=== PATIENT | male | born 1935 | race Caucasian/White ===

== ENCOUNTER 2017-06-23 15:53 | Outpatient (CLI) | payer MEDICARE, OTHER ==
[~2017-06-23 15:53] MED LIST changes: -ALMACONE 360 M360 ML PO; -DULCOLAX S10 MG/SUPP RC; -GOOD NEIGH1200 MG/15 PO; -NORCO 325 MG-51 TAB PO; -PLAVIX 75MG TAB75 MG PO; -TYLENOL 325MG325 MG PO; -TYLENOL SU325 MG/SUP RC
[2017-06-23] MEDS ORDERED: DULCOLAX S10 MG/SUPP RC (16:53)
[2017-06-23] MEDS ORDERED: PLAVIX 75MG TAB75 MG PO (16:53)
[2017-06-23] MEDS ORDERED: TYLENOL SU325 MG/SUP RC (16:54)
[2017-06-23] MEDS ORDERED: NORCO 325 MG-51 TAB PO (16:55)
[2017-06-23] MEDS ORDERED: GOOD NEIGH1200 MG/15 PO (16:55)
[2017-06-23] MEDS ORDERED: ALMACONE 360 M360 ML PO (16:57)
[2017-06-23] MEDS ORDERED: TYLENOL 325MG325 MG PO (17:00)
[2017-06-23 20:36] VITALS: BP 124/51; PULSE 88; TEMP 97.8
[2017-06-23 21:00] VITALS: BP 119/54; PULSE 87; TEMP 98
[2017-06-23 21:15] VITALS: BP 107/42; PULSE 88; TEMP 97.8
[2017-06-23 21:45] VITALS: BP 98/46; PULSE 88; TEMP 98
[2017-06-23 22:45] VITALS: BP 126/43; PULSE 87; TEMP 98.1
[2017-06-23 23:30] VITALS: BP 133/54; PULSE 88; TEMP 98.1
[2017-06-23 23:52] LABS: HEMATOCRIT 19.8 % (42.0-52.0); HEMOGLOBIN 6.8 g/dl (13.5-18.0)
[2017-06-24 17:46] VITALS: BP 136/64; PULSE 85; TEMP 97.5
[2017-06-24 18:03] VITALS: BP 133/56; PULSE 77; TEMP 97.8
[2017-06-24 18:18] VITALS: BP 122/48; PULSE 76
[2017-06-24 18:48] VITALS: BP 130/50; PULSE 87
[2017-06-24 19:58] VITALS: BP 125/54; PULSE 83; TEMP 97.7
[2017-06-24 21:00] VITALS: BP 127/50; PULSE 86; TEMP 97.8
== END 2017-06-24 22:30 ==
LOC: EUO 15:53 → SURG 19:45 → EUO 06-24 00:50 → SURG 06-24 16:01 → EUO 06-24 22:30
PROVIDERS: Internal Medicine
DX: D46.9 Myelodysplastic syndrome, unspecified (principal)
CPT/HCPCS: OP; J1940; J7050; P9016

== ENCOUNTER → 2017-06-23 | Outpatient (REF) ==
[~2017-06-23] MED LIST: ALMACONE 360 M360 ML PO; AMBIEN 5MG TABLE5 MG PO; ASPIRIN 32325 MG/TAB PO; DULCOLAX S10 MG/SUPP RC; GOOD NEIGH1200 MG/15 PO; NORCO 325 MG-51 TAB PO; PLAVIX 75MG TAB75 MG PO; TENORMIN 5050 MG/TAB PO; TYLENOL 325MG325 MG PO; TYLENOL SU325 MG/SUP RC; ZESTRIL 20MG TA20 MG PO
[2017-06-23 10:59] LABS: MEAN CELL VOLUME 97 fl (80.0-100.0); MEAN CORPUSCULAR HGB CONC 34 g/dl (33.0-37.0); MEAN PLATELET VOLUME 9.7 fl (7.4-10.4); PLATELET COUNT 313 K/mm3 (130-400); RED BLOOD COUNT 2.02 M/mm3 (4.20-5.60); WHITE BLOOD COUNT 6.2 K/mm3 (4.8-10.8)
[2017-06-23 11:03] LABS: ADJUSTED CALCIUM 9.4 mg/dL (8.4-10.2); ALBUMIN 2.7 gm/dL (3.5-5.0); BILIRUBIN,TOTAL 0.5 mg/dL (0.0-1.0); CALCIUM 8.4 mg/dL (8.4-10.2); CREATININE, serum 3.55 mg/dL (0.66-1.25); POTASSIUM 4.4 mmol/L (3.4-5.0); TOTAL PROTEIN 5.4 gm/dL (6.4-8.2)
[2017-06-23 11:07] LABS: HEMATOCRIT 19.6 % (42.0-52.0); HEMOGLOBIN 6.6 g/dl (13.5-18.0); MEAN CORPUSCULAR HEMOGLOBIN 33 pg (27.0-31.0)
[2017-06-23 11:16] LABS: ADD PATHOLOGY DIFF REVIEW NO
[2017-06-23 11:37] LABS: BAND 35 % (0-10); EOSINOPHIL 9 % (0-4); LYMPHOCYTE 8 % (20.0-51.0); NEUTROPHILS 42 % (42.0-75.2); TOTAL CELLS COUNTED 100
[2017-06-23 11:39] LABS: ANISOCYTOSIS 1+; HYPOCHROMIA 1+; PLATELET ESTIMATE NORMAL (NORMAL)
== END ==
LOC: ZCOL.LAB 10:33
PROVIDERS: Internal Medicine
DX: Z01.89 Encounter for other specified special examinations (principal)

== ENCOUNTER → 2017-06-23 | Emergency (ER) | payer MEDICARE, OTHER ==
[2017-06-23 15:15] VITALS: BP 75/42; PULSE 80; TEMP 98.6
[2017-06-23 16:01] LABS: INR 1.2 (0.8-3.0); PROTHROMBIN TIME 14.1 SECONDS (9.7-12.8)
[2017-06-23 16:04] LABS: PARTIAL THROMBOPLASTIN TIME 30.2 SECONDS (26.0-37.0)
== END ==
LOC: COL.ER 15:06
PROVIDERS: Emergency Medicine
DX: D64.9 Anemia, unspecified (principal); Z79.82 Long term (current) use of aspirin

== ENCOUNTER → 2017-06-24 | Outpatient (REF) | payer MEDICARE ==
[~2017-06-24] MED LIST changes: +ALMACONE 360 M360 ML PO; +DULCOLAX S10 MG/SUPP RC; +GOOD NEIGH1200 MG/15 PO; +NORCO 325 MG-51 TAB PO; +PLAVIX 75MG TAB75 MG PO; +TYLENOL 325MG325 MG PO; +TYLENOL SU325 MG/SUP RC
[2017-06-24 09:08] LABS: BASO % 0.2 % (0.0-2.0); EOS # 0.6 (0.0-0.7); LYMPH # 0.7 (1.2-3.4); LYMPH % 12.2 % (20.0-51.0); MEAN CELL VOLUME 95 fl (80.0-100.0); MEAN CORPUSCULAR HGB CONC 34 g/dl (33.0-37.0); MEAN PLATELET VOLUME 9.2 fl (7.4-10.4); MONO # 0.6 (0.1-0.6); MONO % 9.8 % (1.7-9.3); PLATELET COUNT 256 K/mm3 (130-400); RED BLOOD COUNT 2.24 M/mm3 (4.20-5.60); WHITE BLOOD COUNT 5.9 K/mm3 (4.8-10.8)
[2017-06-24 09:14] LABS: HEMATOCRIT 21.2 % (42.0-52.0); HEMOGLOBIN 7.2 g/dl (13.5-18.0); MEAN CORPUSCULAR HEMOGLOBIN 32 pg (27.0-31.0)
[2017-06-24 10:18] LABS: CALCIUM 8.3 mg/dL (8.4-10.2); CREATININE, serum 3.04 mg/dL (0.66-1.25); POTASSIUM 4.1 mmol/L (3.4-5.0)
== END ==
LOC: ZCOL.LAB 08:46
PROVIDERS: Internal Medicine
DX: I21.4 Non-ST elevation (NSTEMI) myocardial infarction (principal); D64.9 Anemia, unspecified; N17.9 Acute kidney failure, unspecified; E87.1 Hypo-osmolality and hyponatremia

== ENCOUNTER 2017-06-29 12:49 | Outpatient (RCR) | payer MEDICARE ==
[~2017-06-29] VITALS: Ht 180.3 cm; Wt 99.5 kg
[2017-06-29 13:30] VITALS: BP 78/57; PULSE 76; TEMP 98.2
[2017-06-29] MEDS ORDERED: LASIX 20MG TABL20 MG PO (14:14)
[2017-06-29] MEDS ORDERED: FOLIC ACID 11 MG/TA1 PO (14:15)
[2017-06-29] MEDS ORDERED: LOPRESSOR 225 MG/TAB PO (14:17)
[2017-06-29 14:22] VITALS: BP 65/26; PULSE 77; TEMP 97.7
[2017-06-29 14:36] VITALS: BP 92/62; PULSE 76; TEMP 97.8
[2017-06-29 15:08] VITALS: BP 90/70; PULSE 73; TEMP 97.7
== END 2017-06-29 16:29 ==
LOC: EUO 12:49 → EDSTATUS 13:00 → EUO 13:00
DX: D46.9 Myelodysplastic syndrome, unspecified (principal)
CPT/HCPCS: J7050; P9016

== ENCOUNTER → 2017-07-03 | Outpatient (REF) ==
[~2017-07-03] MED LIST changes: +FOLIC ACID 11 MG/TA1 PO; +LASIX 20MG TABL20 MG PO; +LOPRESSOR 225 MG/TAB PO
== END ==
LOC: ZCOL.LAB 17:03
DX: D46.9 Myelodysplastic syndrome, unspecified (principal); D53.9 Nutritional anemia, unspecified

== ENCOUNTER → 2017-07-09 | Outpatient (REF) ==
[2017-07-09 10:33] LABS: BASO % 0.4 % (0.0-2.0); EOS # 0.9 (0.0-0.7); EOS % 12.9 % (0-4.0); GRAN # 4.1 (1.4-6.5); GRAN % 59.1 % (42.2-75.2); LYMPH # 1.1 (1.2-3.4); LYMPH % 16.1 % (20.0-51.0); MEAN CELL VOLUME 98 fl (80.0-100.0); MEAN CORPUSCULAR HGB CONC 32 g/dl (33.0-37.0); MEAN PLATELET VOLUME 9.9 fl (7.4-10.4); MONO # 0.7 (0.1-0.6); MONO % 10.6 % (1.7-9.3); PLATELET COUNT 411 K/mm3 (130-400); RED BLOOD COUNT 2.62 M/mm3 (4.20-5.60)
[2017-07-09 10:37] LABS: HEMATOCRIT 25.6 % (42.0-52.0); HEMOGLOBIN 8.3 g/dl (13.5-18.0); MEAN CORPUSCULAR HEMOGLOBIN 32 pg (27.0-31.0)
[2017-07-09 10:57] LABS: CREATININE, serum 1.45 mg/dL (0.66-1.25); POTASSIUM 4.4 mmol/L (3.4-5.0)
== END ==
LOC: ZCOL.LAB 10:28
PROVIDERS: Internal Medicine
DX: N17.9 Acute kidney failure, unspecified (principal); E87.1 Hypo-osmolality and hyponatremia

== ENCOUNTER → 2017-07-16 | Outpatient (REF) ==
[2017-07-16 10:43] LABS: CALCIUM 9.3 mg/dL (8.4-10.2); CREATININE, serum 1.41 mg/dL (0.66-1.25); POTASSIUM 4.3 mmol/L (3.4-5.0)
== END ==
LOC: ZCOL.LAB 09:58
PROVIDERS: Internal Medicine
DX: E87.1 Hypo-osmolality and hyponatremia (principal)

== ENCOUNTER 2017-08-08 08:32 | Outpatient (CLI) | payer MEDICARE, OTHER ==
[~2017-08-08] VITALS: Ht 177.8 cm; Wt 84.1 kg
[~2017-08-08 08:32] MED LIST changes: -ASPIRIN 32325 MG/TAB PO; +ASPIRIN 81M81 MG/TA2 PO
[2017-08-08] MEDS ORDERED: AMBIEN 5MG TABLE5 MG PO (08:55)
[2017-08-08] MEDS ORDERED: ULTRAM 50MG TAB50 MG PO (08:55)
[2017-08-08 08:56] VITALS: BP 121/53; PULSE 95; TEMP 98.1
[2017-08-08] MEDS ORDERED: CEPHALEXIN500 M1 PO (09:45)
== END 2017-08-08 10:14 | disposition home or self-care (01) ==
LOC: COL.CAR 08:32
DX: R55 Syncope and collapse (principal); I25.2 Old myocardial infarction; I10 Essential (primary) hypertension; Z86.73 Personal history of transient ischemic attack (TIA), and cerebral infarction without residual deficits; Z87.891 Personal history of nicotine dependence; Z88.2 Allergy status to sulfonamides; Z79.82 Long term (current) use of aspirin; Z79.02 Long term (current) use of antithrombotics/antiplatelets

== ENCOUNTER 2017-08-14 10:07 | Outpatient (RCR) | payer MEDICARE, OTHER ==
[~2017-08-14] VITALS: Ht 177.8 cm; Wt 84.0 kg
[2017-08-14] VITALS (9 sets, daily range): BP systolic 110–148; BP diastolic 45–60; PULSE 79–92; TEMP 97.8–98.4
[~2017-08-14 10:07] MED LIST changes: +CEPHALEXIN500 M1 PO; +ULTRAM 50MG TAB50 MG PO
== END 2017-08-14 16:20 | disposition home or self-care (01) ==
LOC: EUO 10:07
DX: D46.9 Myelodysplastic syndrome, unspecified (principal)
CPT/HCPCS: J7050; P9016

== ENCOUNTER 2017-08-17 07:25 | Outpatient (CLI) | payer MEDICARE, OTHER ==
[~2017-08-17] VITALS: Ht 177.8 cm; Wt 85.0 kg
[2017-08-17 07:55] VITALS: BP 114/56; PULSE 86; TEMP 97.9
[2017-08-17 09:15] VITALS: BP 135/61; PULSE 88; TEMP 97.4
[2017-08-20 14:40] LABS: ADRENOCORTICOTROPIC HORMONE 47 pg/mL (())
== END 2017-08-17 11:11 | disposition home or self-care (01) ==
LOC: EUO 07:25
PROVIDERS: Internal Medicine
DX: I95.1 Orthostatic hypotension (principal); E87.1 Hypo-osmolality and hyponatremia
CPT/HCPCS: J0834

== ENCOUNTER 2017-09-24 12:30 | Outpatient (RCR) | payer MEDICARE, OTHER | END 2017-09-27 07:58 | disposition home or self-care (01) | LOC: WSPT 12:30 | DX: S14.3XXD Injury of brachial plexus, subsequent encounter (principal) | CPT/HCPCS: G8978-GP; G8979-GP; G8980-GP; G8987-GO; G8988-GO ==

== ENCOUNTER 2017-10-07 07:45 | Inpatient (IN) | payer MEDICARE, OTHER ==
[~2017-10-07] VITALS: Ht 177.8 cm; Wt 86.8 kg
[2017-10-07 08:45] LABS: BASO % 0.3 % (0.0-2.0); EOS # 0.2 (0.0-0.7); EOS % 2.4 % (0-4.0); GRAN # 5.1 (1.4-6.5); GRAN % 76.4 % (42.2-75.2); LYMPH # 0.7 (1.2-3.4); LYMPH % 11.2 % (20.0-51.0); MEAN CELL VOLUME 116 fl (80.0-100.0); MEAN CORPUSCULAR HGB CONC 34 g/dl (33.0-37.0); MEAN PLATELET VOLUME 9.6 fl (7.4-10.4); MONO # 0.6 (0.1-0.6); MONO % 8.9 % (1.7-9.3); PLATELET COUNT 278 K/mm3 (130-400); RED BLOOD COUNT 1.73 M/mm3 (4.20-5.60); REDCELL DISTRIBUTION WIDTH-CV 26.1 % (11.5-14.5)
[2017-10-07 08:49] LABS: HEMATOCRIT 20.1 % (42.0-52.0); HEMOGLOBIN 6.8 g/dl (13.5-18.0); MEAN CORPUSCULAR HEMOGLOBIN 39 pg (27.0-31.0)
[2017-10-07 08:55] LABS: ALBUMIN 3.4 gm/dL (3.5-5.0); BILIRUBIN,TOTAL 0.5 mg/dL (0.0-1.0); CALCIUM 8.5 mg/dL (8.4-10.2); CREATININE, serum 0.88 mg/dL (0.66-1.25); TOTAL PROTEIN 5.8 gm/dL (6.4-8.2)
[2017-10-07 09:23] LABS: TROPONIN-I 0.051 ng/mL (0.000-0.034)
[2017-10-07 12:05] VITALS: BP 144/69; PULSE 101; TEMP 97.1
[2017-10-07 13:47] VITALS: BP 121/53; PULSE 92; TEMP 97.9
[2017-10-07 15:21] LABS: TROPONIN-I 0.046 ng/mL (0.000-0.034)
[2017-10-07 17:55] VITALS: BP 140/78; PULSE 94; TEMP 99
[2017-10-07 20:09] VITALS: BP 150/69; PULSE 95; TEMP 98.1
[2017-10-07 23:57] VITALS: BP 148/64; PULSE 96; TEMP 98.7
[2017-10-08 04:06] VITALS: BP 161/82; PULSE 92; TEMP 98
[2017-10-08 07:03] LABS: BASO % 0.4 % (0.0-2.0); EOS # 0.4 (0.0-0.7); EOS % 7.5 % (0-4.0); GRAN # 2.7 (1.4-6.5); LYMPH # 1.1 (1.2-3.4); LYMPH % 23.5 % (20.0-51.0); MEAN CELL VOLUME 114 fl (80.0-100.0); MEAN CORPUSCULAR HGB CONC 34 g/dl (33.0-37.0); MEAN PLATELET VOLUME 9.6 fl (7.4-10.4); MONO # 0.5 (0.1-0.6); MONO % 10.4 % (1.7-9.3); PLATELET COUNT 276 K/mm3 (130-400); RED BLOOD COUNT 1.79 M/mm3 (4.20-5.60); REDCELL DISTRIBUTION WIDTH-CV 25.2 % (11.5-14.5); RETIC # 0.06 M/mm3 (0.02-0.16); RETIC % 3.2 % (0.5-3.52)
[2017-10-08 07:04] LABS: CALCIUM 8.1 mg/dL (8.4-10.2); CREATININE, serum 0.88 mg/dL (0.66-1.25); HEMATOCRIT 20.4 % (42.0-52.0); MEAN CORPUSCULAR HEMOGLOBIN 39 pg (27.0-31.0)
[2017-10-08 10:55] VITALS: BP 114/81; PULSE 58; TEMP 99
[2017-10-08 13:36] VITALS: BP 114/81; PULSE 58
[2017-10-08 14:04] VITALS: BP 112/56; PULSE 88; TEMP 98.9
[2017-10-08 15:43] LABS: FOLATE (FOLIC ACID) 15.8 ng/mL (7.0-31.4)
[2017-10-08 17:56] VITALS: BP 113/49; PULSE 86; TEMP 98.1
[2017-10-08 21:54] VITALS: BP 119/60; PULSE 83; TEMP 98.2
[2017-10-09] VITALS (444 sets, daily range): BP systolic 91–133; BP diastolic 47–71; PULSE 75–127; TEMP 97.1–98.3; O2SAT 78–100
[2017-10-09 06:35] LABS: BASO % 0.7 % (0.0-2.0); EOS # 0.5 (0.0-0.7); EOS % 8.5 % (0-4.0); GRAN % 52.4 % (42.2-75.2); LYMPH # 1.5 (1.2-3.4); LYMPH % 26.3 % (20.0-51.0); MEAN CELL VOLUME 115 fl (80.0-100.0); MEAN CORPUSCULAR HGB CONC 34 g/dl (33.0-37.0); MEAN PLATELET VOLUME 9.7 fl (7.4-10.4); MONO # 0.6 (0.1-0.6); PLATELET COUNT 286 K/mm3 (130-400); RED BLOOD COUNT 2.03 M/mm3 (4.20-5.60); REDCELL DISTRIBUTION WIDTH-CV 25.2 % (11.5-14.5)
[2017-10-09 06:42] LABS: CALCIUM 8.2 mg/dL (8.4-10.2); CREATININE, serum 0.91 mg/dL (0.66-1.25); MAGNESIUM 1.6 mg/dL (1.6-2.3); PHOSPHOROUS 3.5 mg/dL (2.5-4.5); POTASSIUM 3.5 mmol/L (3.4-5.0)
[2017-10-09 06:43] LABS: HEMATOCRIT 23.3 % (42.0-52.0); MEAN CORPUSCULAR HEMOGLOBIN 39 pg (27.0-31.0)
[2017-10-09 07:05] LABS: TROPONIN-I 0.036 ng/mL (0.000-0.034)
[2017-10-10 03:36] VITALS: BP 130/72; PULSE 88; TEMP 97.4
[2017-10-10 08:00] VITALS: BP 108/68; PULSE 82; TEMP 97.5
[2017-10-10 12:00] VITALS: BP 102/56; PULSE 75; TEMP 98.2
[2017-10-10 16:00] VITALS: BP 138/65; PULSE 70; TEMP 97.5
[2017-10-10 20:00] VITALS: BP 102/87; PULSE 80; TEMP 99.3
[2017-10-11] VITALS: BP 134/73; PULSE 78; TEMP 97.2
[2017-10-11 04:00] VITALS: BP 138/72; PULSE 77; TEMP 97.2
[2017-10-11 08:00] VITALS: BP 118/59; PULSE 73; TEMP 98
[2017-10-11] MEDS ORDERED: CORDARONE200 MG/TAB PO ×2 (11:04→11:27)
[2017-10-11 11:44] VITALS: BP 130/59; PULSE 79; TEMP 98.1
== END 2017-10-11 12:34 | disposition home or self-care (01) | DRG 280 ==
LOC: COL.ER 07:45 → SURG 09:52 → ICU 10-09 06:31
PROVIDERS: Emergency Medicine; Internal Medicine; Nurse Practitioner Family
DX: I13.0 Hypertensive heart and chronic kidney disease with heart failure and stage 1 through stage 4 chronic kidney disease, or unspecified chronic kidney disease (principal); I50.33 Acute on chronic diastolic (congestive) heart failure; I21.A1 Myocardial infarction type 2; E87.1 Hypo-osmolality and hyponatremia; I48.92 Unspecified atrial flutter; I48.0 Paroxysmal atrial fibrillation; N18.9 Chronic kidney disease, unspecified; D53.9 Nutritional anemia, unspecified; F17.210 Nicotine dependence, cigarettes, uncomplicated; E87.6 Hypokalemia; I25.10 Atherosclerotic heart disease of native coronary artery without angina pectoris
CPT/HCPCS: 99223-AI; 99232-AI; 99233-AI; 99239; A9502; G8978-GP; G8979-GP; J0282; J1940; J1956; J2785

== ENCOUNTER 2017-10-17 10:04 | Outpatient (RCR) | payer MEDICARE, OTHER ==
[2017-10-17] VITALS (9 sets, daily range): BP systolic 107–140; BP diastolic 46–66; PULSE 82–89; TEMP 97.9–99
[~2017-10-17 10:04] MED LIST changes: +CORDARONE200 MG/TAB PO
== END 2017-10-17 16:08 | disposition home or self-care (01) ==
LOC: EUO 10:04
DX: D46.1 Refractory anemia with ring sideroblasts (principal)
CPT/HCPCS: J7050; P9016

== ENCOUNTER → 2017-11-30 | Outpatient (CLI) | payer MEDICARE, OTHER ==
[2017-11-30 16:34] LABS: CALCIUM 8.7 mg/dL (8.4-10.2); CREATININE, serum 1.13 mg/dL (0.66-1.25); POTASSIUM 4.4 mmol/L (3.4-5.0)
== END ==
LOC: ZCOL.LAB 16:18
PROVIDERS: Internal Medicine
DX: E87.1 Hypo-osmolality and hyponatremia (principal)

== ENCOUNTER 2017-12-13 12:30 | Outpatient (RCR) | payer MEDICARE, OTHER ==
[2017-12-13] VITALS (8 sets, daily range): BP systolic 114–153; BP diastolic 55–73; PULSE 76–89; TEMP 97.8–98.6
== END 2017-12-13 17:25 | disposition home or self-care (01) ==
LOC: EUO 12:30
DX: D46.1 Refractory anemia with ring sideroblasts (principal)
CPT/HCPCS: J7050; P9040

== ENCOUNTER 2017-12-21 23:03 | Emergency (ER) | payer MEDICARE, OTHER ==
[~2017-12-21] VITALS: Ht 177.8 cm; Wt 77.3 kg
[2017-12-21 23:07] VITALS: BP 160/79; PULSE 89; TEMP 98.2
[2017-12-21 23:49] LABS: BASO % 0.5 % (0.0-2.0); EOS # 0.6 (0.0-0.7); EOS % 6.5 % (0-4.0); GRAN # 6.3 (1.4-6.5); GRAN % 74.4 % (42.2-75.2); LYMPH # 1.1 (1.2-3.4); MEAN CELL VOLUME 107 fl (80.0-100.0); MEAN CORPUSCULAR HGB CONC 35 g/dl (33.0-37.0); MEAN PLATELET VOLUME 9.9 fl (7.4-10.4); MONO # 0.4 (0.1-0.6); MONO % 4.6 % (1.7-9.3); PLATELET COUNT 216 K/mm3 (130-400)
[2017-12-21 23:51] LABS: HEMATOCRIT 22.5 % (42.0-52.0); HEMOGLOBIN 7.8 g/dl (13.5-18.0); MEAN CORPUSCULAR HEMOGLOBIN 37 pg (27.0-31.0)
[2017-12-21 23:55] LABS: INR 1.3 (0.8-3.0); PROTHROMBIN TIME 15.3 SECONDS (9.7-12.8)
[2017-12-21 23:59] LABS: CALCIUM 8.7 mg/dL (8.4-10.2); CREATININE, serum 0.97 mg/dL (0.66-1.25); POTASSIUM 3.9 mmol/L (3.4-5.0)
[2017-12-22] MEDS ORDERED: CEPHALEXIN500 M1 PO (00:54)
== END 2017-12-22 01:28 | disposition home or self-care (01) ==
LOC: COL.ER 23:03
PROVIDERS: Emergency Medicine
DX: S41.111A Laceration without foreign body of right upper arm, initial encounter (principal); S50.02XA Contusion of left elbow, initial encounter; I48.91 Unspecified atrial fibrillation; F17.290 Nicotine dependence, other tobacco product, uncomplicated; I50.9 Heart failure, unspecified; Z79.02 Long term (current) use of antithrombotics/antiplatelets; Z79.82 Long term (current) use of aspirin; Z23 Encounter for immunization; W22.8XXA Striking against or struck by other objects, initial encounter; Y92.009 Unspecified place in unspecified non-institutional (private) residence as the place of occurrence of the external cause

== ENCOUNTER 2018-02-27 09:00 | Outpatient (RCR) | payer MEDICARE, OTHER ==
[2018-01-22] VITALS (14 sets, daily range): BP systolic 106–187; BP diastolic 34–92; PULSE 80–95; TEMP 97.6–98.2
[2018-02-27] VITALS (8 sets, daily range): BP systolic 110–123; BP diastolic 48–65; PULSE 68–93; TEMP 97.7–98.8
[~2018-02-27] VITALS: Ht 177.8 cm; Wt 77.2 kg
[2018-02-27] MEDS ORDERED: FLORINEF ACETA0.1 MG PO (11:26)
[2018-02-27] MEDS ORDERED: PLAVIX 75MG TAB75 MG PO (11:26)
[2018-02-27] MEDS ORDERED: CORDARONE200 MG/TAB PO (11:27)
[2018-02-27] MEDS ORDERED: FOLIC ACID 11 MG/TA1 PO (11:27)
== END 2018-02-27 15:30 | disposition still patient (30) ==
LOC: EUO 09:00
DX: D46.1 Refractory anemia with ring sideroblasts (principal)
CPT/HCPCS: J7050; P9016

== ENCOUNTER 2018-03-20 08:00 | Outpatient (RCR) | payer MEDICARE, OTHER ==
[2018-03-20] VITALS (11 sets, daily range): BP systolic 108–119; BP diastolic 42–52; PULSE 60–73; TEMP 97.9–98
[~2018-03-20] VITALS: Ht 177.8 cm; Wt 87.3 kg
[~2018-03-20 08:00] MED LIST changes: +FLORINEF ACETA0.1 MG PO
== END 2018-03-20 12:36 | disposition home or self-care (01) ==
LOC: EUO 08:00
DX: D46.1 Refractory anemia with ring sideroblasts (principal)
CPT/HCPCS: J7050; P9016

== ENCOUNTER 2018-04-03 09:00 | Outpatient (RCR) | payer MEDICARE, OTHER ==
[2018-04-03] VITALS (8 sets, daily range): BP systolic 80–142; BP diastolic 46–63; PULSE 71–82; TEMP 97–98.4
== END 2018-04-03 14:31 | disposition home or self-care (01) ==
LOC: EUO 09:00
DX: R53.83 Other fatigue (principal); D64.1 Secondary sideroblastic anemia due to disease
CPT/HCPCS: J7050; P9016

== ENCOUNTER 2018-04-17 08:31 | Outpatient (RCR) | payer MEDICARE, OTHER ==
[2018-04-17] VITALS (9 sets, daily range): BP systolic 105–123; BP diastolic 37–55; PULSE 69–86; TEMP 98–99
== END 2018-04-17 15:27 | disposition home or self-care (01) ==
LOC: EUO 08:31
DX: D46.1 Refractory anemia with ring sideroblasts (principal)
CPT/HCPCS: J7050; P9016

== ENCOUNTER 2018-05-09 12:37 | Outpatient (RCR) | payer MEDICARE, OTHER ==
[2018-05-09] VITALS (9 sets, daily range): BP systolic 102–127; BP diastolic 41–53; PULSE 65–82; TEMP 96.8–98.9
== END 2018-05-09 18:00 | disposition home or self-care (01) ==
LOC: EUO 12:37
DX: D46.9 Myelodysplastic syndrome, unspecified (principal)
CPT/HCPCS: J7050; P9040

== ENCOUNTER 2018-05-14 14:10 | Emergency (ER) | payer MEDICARE, OTHER ==
[~2018-05-14] VITALS: Ht 177.8 cm; Wt 77.3 kg
[2018-05-14 14:42] VITALS: TEMP 97.3
[2018-05-14 15:08] LABS: BASO % 1.1 % (0.0-2.0); EOS # 0.5 (0.0-0.7); EOS % 14.5 % (0-4.0); GRAN # 1.8 (1.4-6.5); GRAN % 47.9 % (42.2-75.2); HEMOGLOBIN 8.9 g/dl (13.5-18.0); LYMPH % 26.3 % (20.0-51.0); MEAN CELL VOLUME 99 fl (80.0-100.0); MEAN CORPUSCULAR HEMOGLOBIN 34 pg (27.0-31.0); MEAN CORPUSCULAR HGB CONC 35 g/dl (33.0-37.0); MEAN PLATELET VOLUME 9.3 fl (7.4-10.4); MONO # 0.3 (0.1-0.6); MONO % 8.8 % (1.7-9.3); PLATELET COUNT 127 K/mm3 (130-400); REDCELL DISTRIBUTION WIDTH-CV 26.8 % (11.5-14.5)
[2018-05-14 15:09] LABS: HEMATOCRIT 25.8 % (42.0-52.0)
[2018-05-14 15:16] LABS: ALBUMIN 3.8 gm/dL (3.5-5.0); BILIRUBIN,TOTAL 0.5 mg/dL (0.0-1.0); C-REACTIVE PROTEIN 0.8 mg/dL (0.0-0.9); CALCIUM 8.6 mg/dL (8.4-10.2); CREATININE, serum 1.14 mg/dL (0.66-1.25); POTASSIUM 4.1 mmol/L (3.4-5.0); TOTAL PROTEIN 6.1 gm/dL (6.4-8.2)
[2018-05-14 15:58] VITALS: BP 152/67; PULSE 78
== END 2018-05-14 16:00 | disposition home or self-care (01) ==
LOC: COL.ER 14:10
PROVIDERS: Family Medicine
DX: E86.0 Dehydration (principal); I10 Essential (primary) hypertension; I48.91 Unspecified atrial fibrillation; Z79.82 Long term (current) use of aspirin; Z79.02 Long term (current) use of antithrombotics/antiplatelets; Z86.2 Personal history of diseases of the blood and blood-forming organs and certain disorders involving the immune mechanism
CPT/HCPCS: J7030

== ENCOUNTER 2018-06-07 09:56 | Outpatient (RCR) | payer MEDICARE, OTHER ==
[~2018-06-07] VITALS: Ht 177.8 cm; Wt 72.3 kg
[2018-06-07] VITALS (9 sets, daily range): BP systolic 112–146; BP diastolic 53–70; PULSE 71–92; TEMP 98.1–98.6
[2018-06-07] MEDS ORDERED: TYLENOL 500MG500 MG PO (10:21)
== END 2018-06-07 15:41 | disposition home or self-care (01) ==
LOC: EUO 09:56
DX: D46.1 Refractory anemia with ring sideroblasts (principal)
CPT/HCPCS: J7050; P9016

== ENCOUNTER 2018-06-18 18:04 | Observation (INO) | payer MEDICARE, OTHER ==
[~2018-06-18] VITALS: Ht 177.8 cm; Wt 69.2 kg
[~2018-06-18 18:04] MED LIST changes: +TYLENOL 500MG500 MG PO
[2018-06-18 18:34] LABS: BASO # 0.1 (0.0-0.2); BASO % 1.3 % (0.0-2.0); EOS # 0.3 (0.0-0.7); EOS % 6.6 % (0-4.0); GRAN # 2.4 (1.4-6.5); LYMPH # 0.8 (1.2-3.4); LYMPH % 21.9 % (20.0-51.0); MEAN CELL VOLUME 105 fl (80.0-100.0); MEAN CORPUSCULAR HGB CONC 34 g/dl (33.0-37.0); MEAN PLATELET VOLUME 9.2 fl (7.4-10.4); MONO # 0.3 (0.1-0.6); MONO % 7.1 % (1.7-9.3); PLATELET COUNT 182 K/mm3 (130-400); RED BLOOD COUNT 2.44 M/mm3 (4.20-5.60); REDCELL DISTRIBUTION WIDTH-CV 25.8 % (11.5-14.5)
[2018-06-18 18:47] LABS: HEMATOCRIT 25.5 % (42.0-52.0); HEMOGLOBIN 8.6 g/dl (13.5-18.0); MEAN CORPUSCULAR HEMOGLOBIN 35 pg (27.0-31.0)
[2018-06-18 18:54] LABS: BILIRUBIN,TOTAL 0.7 mg/dL (0.0-1.0); CALCIUM 9.1 mg/dL (8.4-10.2); CREATININE, serum 1.04 mg/dL (0.66-1.25); POTASSIUM 4.1 mmol/L (3.4-5.0); TOTAL PROTEIN 6.4 gm/dL (6.4-8.2)
[2018-06-18 19:05] LABS: TROPONIN-I 0.016 ng/mL (0.000-0.034)
[2018-06-18 20:47] LABS: ARTERIAL BLD GAS TCO2 CT 18.8; ARTERIAL BLOOD GAS BASE EXCESS -5.6 (-2-2); ARTERIAL BLOOD GAS PCO2 28.1 mmHg (35-45); ARTERIAL BLOOD GAS pH 7.42 (7.35-7.45)
[2018-06-18 20:52] LABS: MAGNESIUM 1.7 mg/dL (1.6-2.3); PHOSPHOROUS 4.4 mg/dL (2.5-4.5)
[2018-06-18 21:24] LABS: TSH w REFLEX 3.38 uIU/mL (0.465-4.680)
[2018-06-18 21:30] LABS: MUCOUS Present /lpf; PH 6 (5-8); SQUAMOUS EPITHELIAL 0-2 /hpf; URINE APPEARANCE Hazy; URINE BACTERIA Many /hpf; URINE BILIRUBIN Negative (NEGATIVE); URINE BLOOD 2+ (NEGATIVE); URINE COLOR Yellow; URINE GLUCOSE Negative (NEGATIVE); URINE KETONE Negative (NEGATIVE); URINE LEUKOCYTE ESTERASE Trace (NEGATIVE); URINE NITRATE Positive (NEGATIVE); URINE PROTEIN(semi-quant) 1+ (NEGATIVE); URINE UROBILINOGEN Negative (NEGATIVE)
[2018-06-18 21:31] LABS: COLLECTION METHOD CATHETER
[2018-06-18 22:36] VITALS: BP 155/70; PULSE 81; TEMP 97.8
[2018-06-19 00:39] VITALS: BP 99/60; PULSE 81; TEMP 97.8
[2018-06-19 04:23] VITALS: BP 140/61; PULSE 83; TEMP 98.1
[2018-06-19 06:04] LABS: MEAN CELL VOLUME 107 fl (80.0-100.0); MEAN CORPUSCULAR HGB CONC 33 g/dl (33.0-37.0); MEAN PLATELET VOLUME 9.6 fl (7.4-10.4); PLATELET COUNT 174 K/mm3 (130-400); RED BLOOD COUNT 2.31 M/mm3 (4.20-5.60); REDCELL DISTRIBUTION WIDTH-CV 25.9 % (11.5-14.5)
[2018-06-19 06:06] LABS: HEMATOCRIT 24.6 % (42.0-52.0); HEMOGLOBIN 8.2 g/dl (13.5-18.0); MEAN CORPUSCULAR HEMOGLOBIN 35 pg (27.0-31.0)
[2018-06-19 06:22] LABS: ALBUMIN 3.6 gm/dL (3.5-5.0); BILIRUBIN,TOTAL 0.7 mg/dL (0.0-1.0); CREATININE, serum 0.8 mg/dL (0.66-1.25); POTASSIUM 4.2 mmol/L (3.4-5.0); TOTAL PROTEIN 5.9 gm/dL (6.4-8.2)
[2018-06-19 06:40] LABS: BAND 20 % (0-10); EOSINOPHIL 2 % (0-4); LYMPHOCYTE 12 % (20.0-51.0); METAMYELOCYTE 1 % (0-0); NEUTROPHILS 64 % (42.0-75.2); PLATELET ESTIMATE NORMAL (NORMAL)
[2018-06-19 06:41] LABS: ANISOCYTOSIS 3+
[2018-06-19 08:08] VITALS: BP 115/46; PULSE 81; TEMP 98.5
[2018-06-19 12:02] VITALS: BP 135/49; PULSE 79; TEMP 98
[2018-06-19 13:49] LABS: FOLATE (FOLIC ACID) 14.5 ng/mL (7.0-31.4)
[2018-06-19] MEDS ORDERED: CIPRO 250MG TA250 MG PO (14:58)
== END 2018-06-19 17:03 | disposition home or self-care (01) ==
LOC: COL.ER 18:04 → SURG 19:24
PROVIDERS: Emergency Medicine; Nurse Practitioner Family
DX: R53.1 Weakness (principal); R29.6 Repeated falls; R41.0 Disorientation, unspecified; N39.0 Urinary tract infection, site not specified; I48.0 Paroxysmal atrial fibrillation; E87.1 Hypo-osmolality and hyponatremia; D53.9 Nutritional anemia, unspecified; I95.1 Orthostatic hypotension; I73.9 Peripheral vascular disease, unspecified; I34.0 Nonrheumatic mitral (valve) insufficiency; N18.9 Chronic kidney disease, unspecified; K52.89 Other specified noninfective gastroenteritis and colitis; I25.2 Old myocardial infarction; F17.290 Nicotine dependence, other tobacco product, uncomplicated; Z79.02 Long term (current) use of antithrombotics/antiplatelets; Z79.82 Long term (current) use of aspirin; Z88.2 Allergy status to sulfonamides
CPT/HCPCS: G0378; G8978-GP; G8979-GP; G8987-GO; G8988-GO; J0696; J1720; J7030

== ENCOUNTER 2018-06-28 09:43 | Outpatient (RCR) | payer MEDICARE, OTHER ==
[~2018-06-28] VITALS: Ht 177.8 cm; Wt 77.4 kg
[2018-06-28] VITALS (9 sets, daily range): BP systolic 130–149; BP diastolic 52–72; PULSE 68–76; TEMP 98
[~2018-06-28 09:43] MED LIST changes: +CIPRO 250MG TA250 MG PO
== END 2018-06-28 15:25 | disposition home or self-care (01) ==
LOC: EUO 09:43
DX: D46.1 Refractory anemia with ring sideroblasts (principal)
CPT/HCPCS: J7050; P9016

== ENCOUNTER 2018-07-19 09:56 | Outpatient (RCR) | payer MEDICARE, OTHER ==
[~2018-07-19] VITALS: Ht 177.8 cm; Wt 74.0 kg
[2018-07-19] VITALS (9 sets, daily range): BP systolic 123–140; BP diastolic 51–60; PULSE 62–70; TEMP 97.8–98.6
[2018-07-19] MEDS ORDERED: CORDARONE200 MG/TAB PO (13:55)
--- NOTE | 2018-07-19 16:10 | NUR ---
Pt edson blood well. Pt discharged per w/c with son.
== END 2018-07-19 16:16 | disposition home or self-care (01) ==
LOC: EUO 09:56
DX: D46.1 Refractory anemia with ring sideroblasts (principal)
CPT/HCPCS: J7050; P9016

== ENCOUNTER → 2018-07-31 | Outpatient (CLI) | payer MEDICARE, OTHER ==
[~2018-07-31] MED LIST changes: +COMPAZINE 110 MG/TAB PO; +GLUCOSAMINE MSM1 TAB PO; +MULTI VITAMINS1 TAB PO; +NICODERM C21 MG/PATC TD
[2018-07-31 11:39] LABS: MEAN CELL VOLUME 106 fl (80.0-100.0); MEAN CORPUSCULAR HGB CONC 34 g/dl (33.0-37.0); MEAN PLATELET VOLUME 10.7 fl (7.4-10.4); PLATELET COUNT 174 K/mm3 (130-400); REDCELL DISTRIBUTION WIDTH-CV 23.8 % (11.5-14.5)
[2018-07-31 11:42] LABS: HEMATOCRIT 21.2 % (42.0-52.0); HEMOGLOBIN 7.1 g/dl (13.5-18.0); MEAN CORPUSCULAR HEMOGLOBIN 36 pg (27.0-31.0)
[2018-07-31 12:27] LABS: ALBUMIN 3.3 gm/dL (3.5-5.0); BILIRUBIN,TOTAL 0.5 mg/dL (0.0-1.0); CALCIUM 8.7 mg/dL (8.4-10.2); CREATININE, serum 0.9 mg/dL (0.66-1.25); TOTAL PROTEIN 5.3 gm/dL (6.4-8.2)
[2018-07-31 12:39] LABS: BAND 25 % (0-10); EOSINOPHIL 8 % (0-4); LYMPHOCYTE 18 % (20.0-51.0); NEUTROPHILS 47 % (42.0-75.2); PLATELET ESTIMATE NORMAL (NORMAL)
== END ==
LOC: ZLAB.STJ 10:04 → EDSTATUS 10:23
PROVIDERS: Internal Medicine
DX: D46.9 Myelodysplastic syndrome, unspecified (principal)

== ENCOUNTER 2018-08-01 08:54 | Outpatient (RCR) | payer MEDICARE, OTHER ==
[2018-08-01] VITALS (11 sets, daily range): BP systolic 106–151; BP diastolic 52–82; PULSE 67–74; TEMP 97.8–98.4
[~2018-08-01] VITALS: Ht 177.8 cm; Wt 74.5 kg
[~2018-08-01 08:54] MED LIST changes: -COMPAZINE 110 MG/TAB PO; -GLUCOSAMINE MSM1 TAB PO; -MULTI VITAMINS1 TAB PO; -NICODERM C21 MG/PATC TD
[2018-08-01] MEDS ORDERED: MULTI VITAMINS1 TAB PO (12:27)
[2018-08-01] MEDS ORDERED: NICODERM C21 MG/PATC TD (12:30)
[2018-08-01] MEDS ORDERED: COMPAZINE 110 MG/TAB PO (12:31)
[2018-08-01] MEDS ORDERED: GLUCOSAMINE MSM1 TAB PO (12:32)
== END 2018-08-01 15:41 | disposition home or self-care (01) ==
LOC: EUO 08:54 → EDSTATUS 09:00 → EUO 15:41
DX: D46.1 Refractory anemia with ring sideroblasts (principal)
CPT/HCPCS: J7050; P9016

== ENCOUNTER → 2018-08-06 | Outpatient (CLI) | payer MEDICARE, OTHER ==
[~2018-08-06] MED LIST changes: +COMPAZINE 110 MG/TAB PO; +GLUCOSAMINE MSM1 TAB PO; +MULTI VITAMINS1 TAB PO; +NICODERM C21 MG/PATC TD
[2018-08-06 11:39] LABS: COLLECTION METHOD CLEAN CATCH
[2018-08-06 12:37] LABS: MUCOUS Present /lpf; PH 6 (5-8); SQUAMOUS EPITHELIAL 0-2 /hpf; URINE APPEARANCE Hazy; URINE BACTERIA Many /hpf; URINE BILIRUBIN Negative (NEGATIVE); URINE BLOOD Negative (NEGATIVE); URINE COLOR Yellow; URINE GLUCOSE Negative (NEGATIVE); URINE KETONE Negative (NEGATIVE); URINE LEUKOCYTE ESTERASE 3+ (NEGATIVE); URINE NITRATE Positive (NEGATIVE); URINE PROTEIN(semi-quant) Negative (NEGATIVE); URINE UROBILINOGEN Negative (NEGATIVE)
== END ==
LOC: ZLAB.STJ 09:55
PROVIDERS: Internal Medicine
DX: R35.0 Frequency of micturition (principal)

== ENCOUNTER → 2018-08-07 | Outpatient (CLI) | payer MEDICARE, OTHER ==
[2018-08-07 10:57] LABS: MEAN CELL VOLUME 102 fl (80.0-100.0); MEAN CORPUSCULAR HGB CONC 33 g/dl (33.0-37.0); PLATELET COUNT 165 K/mm3 (130-400); RED BLOOD COUNT 2.54 M/mm3 (4.20-5.60); REDCELL DISTRIBUTION WIDTH-CV 22.5 % (11.5-14.5)
[2018-08-07 10:59] LABS: ALBUMIN 3.7 gm/dL (3.5-5.0); BILIRUBIN,TOTAL 0.7 mg/dL (0.0-1.0); CALCIUM 9.2 mg/dL (8.4-10.2); CREATININE, serum 1.12 mg/dL (0.66-1.25); POTASSIUM 4.4 mmol/L (3.4-5.0); TOTAL PROTEIN 5.9 gm/dL (6.4-8.2)
[2018-08-07 11:01] LABS: HEMATOCRIT 25.9 % (42.0-52.0); HEMOGLOBIN 8.5 g/dl (13.5-18.0); MEAN CORPUSCULAR HEMOGLOBIN 33 pg (27.0-31.0)
[2018-08-07 11:30] LABS: ANISOCYTOSIS 3+; BAND 21 % (0-10); EOSINOPHIL 3 % (0-4); HYPOCHROMIA 1+; LYMPHOCYTE 10 % (20.0-51.0); NEUTROPHILS 64 % (42.0-75.2); NUCLEATED RED BLOOD CELL 1 (0-6); PLATELET ESTIMATE NORMAL (NORMAL)
== END ==
LOC: ZLAB.STJ 10:22
PROVIDERS: Internal Medicine
DX: D46.9 Myelodysplastic syndrome, unspecified (principal)

== ENCOUNTER → 2018-08-14 | Outpatient (CLI) | payer MEDICARE, OTHER ==
[2018-08-14 11:41] LABS: MEAN CELL VOLUME 104 fl (80.0-100.0); MEAN CORPUSCULAR HGB CONC 33 g/dl (33.0-37.0); MEAN PLATELET VOLUME 9.7 fl (7.4-10.4); PLATELET COUNT 449 K/mm3 (130-400); REDCELL DISTRIBUTION WIDTH-CV 23.5 % (11.5-14.5)
[2018-08-14 11:45] LABS: HEMATOCRIT 23.8 % (42.0-52.0); HEMOGLOBIN 7.8 g/dl (13.5-18.0); MEAN CORPUSCULAR HEMOGLOBIN 34 pg (27.0-31.0)
[2018-08-14 12:24] LABS: ALBUMIN 3.4 gm/dL (3.5-5.0); BILIRUBIN,TOTAL 0.6 mg/dL (0.0-1.0); CREATININE, serum 0.95 mg/dL (0.66-1.25); POTASSIUM 4.4 mmol/L (3.4-5.0); TOTAL PROTEIN 5.5 gm/dL (6.4-8.2)
[2018-08-14 12:40] LABS: BAND 7 % (0-10); EOSINOPHIL 2 % (0-4); LYMPHOCYTE 9 % (20.0-51.0); MICROCYTOSIS 1+; NEUTROPHILS 79 % (42.0-75.2); PLATELET ESTIMATE INCREASED (NORMAL)
== END ==
LOC: ZLAB.STJ 10:12
PROVIDERS: Internal Medicine
DX: D46.9 Myelodysplastic syndrome, unspecified (principal)

== ENCOUNTER → 2018-08-26 | Outpatient (CLI) | payer MEDICARE, OTHER ==
[~2018-08-26] MED LIST changes: +VANTIN100 MG
[2018-08-26 14:58] LABS: COLLECTION METHOD CLEAN CATCH
[2018-08-26 15:41] LABS: MUCOUS Present /lpf; PH 7 (5-8); SQUAMOUS EPITHELIAL None Seen /hpf; URINE APPEARANCE Hazy; URINE BACTERIA None Seen /hpf; URINE BILIRUBIN Negative (NEGATIVE); URINE BLOOD Negative (NEGATIVE); URINE COLOR Yellow; URINE GLUCOSE Negative (NEGATIVE); URINE KETONE Negative (NEGATIVE); URINE LEUKOCYTE ESTERASE Trace (NEGATIVE); URINE NITRATE Positive (NEGATIVE); URINE PROTEIN(semi-quant) Negative (NEGATIVE); URINE RBC 0-2 /hpf; URINE UROBILINOGEN Negative (NEGATIVE)
== END ==
LOC: ZLAB.STJ 14:22
PROVIDERS: Internal Medicine
DX: R35.0 Frequency of micturition (principal)

== ENCOUNTER → 2018-08-28 | Outpatient (CLI) | payer MEDICARE, OTHER ==
[2018-08-28 14:04] LABS: MEAN CELL VOLUME 107 fl (80.0-100.0); MEAN CORPUSCULAR HGB CONC 33 g/dl (33.0-37.0); MEAN PLATELET VOLUME 10.9 fl (7.4-10.4); PLATELET COUNT 236 K/mm3 (130-400); REDCELL DISTRIBUTION WIDTH-CV 25.3 % (11.5-14.5)
[2018-08-28 14:09] LABS: HEMATOCRIT 18.1 % (42.0-52.0); MEAN CORPUSCULAR HEMOGLOBIN 35 pg (27.0-31.0)
[2018-08-28 14:10] LABS: HEMOGLOBIN 5.9 g/dl (13.5-18.0)
[2018-08-28 14:38] LABS: BAND 10 % (0-10); EOSINOPHIL 5 % (0-4); HYPOCHROMIA 2+; LYMPHOCYTE 14 % (20.0-51.0); NEUTROPHILS 70 % (42.0-75.2); PLATELET ESTIMATE NORMAL (NORMAL); POLYCHROMASIA 1+
[2018-08-28 14:39] LABS: ANISOCYTOSIS 3+; MICROCYTOSIS 1+
== END ==
LOC: ZLAB.STJ 10:18
PROVIDERS: Internal Medicine
DX: D46.9 Myelodysplastic syndrome, unspecified (principal)

== ENCOUNTER 2018-08-29 13:00 | Outpatient (RCR) | payer MEDICARE, OTHER ==
[2018-08-28 16:30] VITALS: BP 79/50; PULSE 83; TEMP 98
[2018-08-29] VITALS (13 sets, daily range): BP systolic 61–90; BP diastolic 42–57; PULSE 77–92; TEMP 98–99.2
[~2018-08-29] VITALS: Ht 177.8 cm; Wt 76.9 kg
== END 2018-08-29 17:17 | disposition home or self-care (01) ==
LOC: EUO 13:00
DX: D46.1 Refractory anemia with ring sideroblasts (principal)
CPT/HCPCS: J7050; P9040

== ENCOUNTER → 2018-09-04 | Outpatient (CLI) | payer MEDICARE, OTHER ==
[2018-09-04 16:09] LABS: BASO % 0.4 % (0.0-2.0); EOS # 0.2 (0.0-0.7); EOS % 2.5 % (0-4.0); GRAN # 7.7 (1.4-6.5); LYMPH # 0.8 (1.2-3.4); LYMPH % 8.7 % (20.0-51.0); MEAN CELL VOLUME 103 fl (80.0-100.0); MEAN CORPUSCULAR HGB CONC 34 g/dl (33.0-37.0); MEAN PLATELET VOLUME 11.7 fl (7.4-10.4); MONO # 0.1 (0.1-0.6); MONO % 1.2 % (1.7-9.3); PLATELET COUNT 179 K/mm3 (130-400); RED BLOOD COUNT 2.06 M/mm3 (4.20-5.60); REDCELL DISTRIBUTION WIDTH-CV 23.8 % (11.5-14.5)
[2018-09-04 16:14] LABS: HEMATOCRIT 21.2 % (42.0-52.0); HEMOGLOBIN 7.1 g/dl (13.5-18.0); MEAN CORPUSCULAR HEMOGLOBIN 34 pg (27.0-31.0)
== END ==
LOC: ZLAB.STJ 14:10
PROVIDERS: Internal Medicine
DX: D46.9 Myelodysplastic syndrome, unspecified (principal)

== ENCOUNTER 2018-09-06 13:07 | Outpatient (RCR) | payer MEDICARE, OTHER ==
[2018-09-06] VITALS (8 sets, daily range): BP systolic 73–102; BP diastolic 50–62; PULSE 76–88; TEMP 97.9–98.3
--- NOTE | 2018-09-06 18:15 | NUR ---
Pt tolerated infusion well with no adverse reactions. [facility] here to transport patient back to [facility]. IV was discontinued with catheter tip intact, no phlebitis or infiltration.
== END 2018-09-06 18:20 | disposition home or self-care (01) ==
LOC: EUO 13:07
DX: D46.1 Refractory anemia with ring sideroblasts (principal)
CPT/HCPCS: J7050; P9040

== ENCOUNTER → 2018-09-11 | Outpatient (CLI) | payer MEDICARE, OTHER ==
[2018-09-11 11:36] LABS: MEAN CELL VOLUME 101 fl (80.0-100.0); MEAN CORPUSCULAR HGB CONC 33 g/dl (33.0-37.0); MEAN PLATELET VOLUME 9.8 fl (7.4-10.4); PLATELET COUNT 584 K/mm3 (130-400); REDCELL DISTRIBUTION WIDTH-CV 23.1 % (11.5-14.5)
[2018-09-11 11:48] LABS: ALBUMIN 3.1 gm/dL (3.5-5.0); BILIRUBIN,TOTAL 0.5 mg/dL (0.0-1.0); CALCIUM 8.6 mg/dL (8.4-10.2); CREATININE, serum 0.9 mg/dL (0.66-1.25); POTASSIUM 4.7 mmol/L (3.4-5.0); TOTAL PROTEIN 5.4 gm/dL (6.4-8.2)
[2018-09-11 12:00] LABS: HEMATOCRIT 28.3 % (42.0-52.0); HEMOGLOBIN 9.2 g/dl (13.5-18.0); MEAN CORPUSCULAR HEMOGLOBIN 33 pg (27.0-31.0)
[2018-09-11 12:41] LABS: BAND 25 % (0-10); EOSINOPHIL 4 % (0-4); LYMPHOCYTE 6 % (20.0-51.0); NEUTROPHILS 63 % (42.0-75.2); TEAR DROP CELLS 1+
[2018-09-11 12:42] LABS: ANISOCYTOSIS 2+; BURR CELLS 1+; OVALOCYTES 1+; PLATELET ESTIMATE INCREASED (NORMAL); POIKILOCYTOSIS 1+
== END ==
LOC: ZCOL.LAB 10:53
PROVIDERS: Internal Medicine
DX: D46.9 Myelodysplastic syndrome, unspecified (principal)

== ENCOUNTER → 2018-09-17 | Outpatient (CLI) | payer MEDICARE, OTHER ==
[2018-09-17 10:59] LABS: COLLECTION METHOD CLEAN CATCH
[2018-09-17 11:11] LABS: MUCOUS Present /lpf; PH 7 (5-8); SQUAMOUS EPITHELIAL None Seen /hpf; URINE APPEARANCE Clear; URINE BACTERIA None Seen /hpf; URINE BILIRUBIN Negative (NEGATIVE); URINE BLOOD Negative (NEGATIVE); URINE COLOR Yellow; URINE GLUCOSE Negative (NEGATIVE); URINE KETONE Negative (NEGATIVE); URINE LEUKOCYTE ESTERASE Trace (NEGATIVE); URINE NITRATE Negative (NEGATIVE); URINE PROTEIN(semi-quant) Negative (NEGATIVE); URINE RBC 0-2 /hpf; URINE UROBILINOGEN Negative (NEGATIVE)
== END ==
LOC: ZLAB.STJ 09:45
PROVIDERS: Internal Medicine
DX: R35.0 Frequency of micturition (principal)

== ENCOUNTER → 2018-09-25 | Outpatient (CLI) | payer MEDICARE, OTHER ==
[2018-09-25 15:06] LABS: BASO # 0.1 (0.0-0.2); BASO % 0.5 % (0.0-2.0); EOS # 0.9 (0.0-0.7); EOS % 9.1 % (0-4.0); GRAN # 7.4 (1.4-6.5); GRAN % 72.7 % (42.2-75.2); LYMPH # 1.4 (1.2-3.4); LYMPH % 13.9 % (20.0-51.0); MEAN CELL VOLUME 101 fl (80.0-100.0); MEAN CORPUSCULAR HGB CONC 32 g/dl (33.0-37.0); MEAN PLATELET VOLUME 10.7 fl (7.4-10.4); MONO # 0.3 (0.1-0.6); PLATELET COUNT 291 K/mm3 (130-400); RED BLOOD COUNT 2.56 M/mm3 (4.20-5.60); REDCELL DISTRIBUTION WIDTH-CV 23.5 % (11.5-14.5)
[2018-09-25 15:16] LABS: HEMATOCRIT 25.9 % (42.0-52.0); HEMOGLOBIN 8.4 g/dl (13.5-18.0); MEAN CORPUSCULAR HEMOGLOBIN 33 pg (27.0-31.0)
== END ==
LOC: ZLAB.STJ 14:38
PROVIDERS: Internal Medicine
DX: D46.9 Myelodysplastic syndrome, unspecified (principal)

== ENCOUNTER → 2018-10-02 | Outpatient (CLI) | payer MEDICARE, OTHER ==
[2018-10-02 11:59] LABS: MEAN CELL VOLUME 102 fl (80.0-100.0); MEAN CORPUSCULAR HGB CONC 34 g/dl (33.0-37.0); PLATELET COUNT 148 K/mm3 (130-400); RED BLOOD COUNT 2.26 M/mm3 (4.20-5.60); REDCELL DISTRIBUTION WIDTH-CV 23.9 % (11.5-14.5)
[2018-10-02 12:15] LABS: HEMOGLOBIN 7.7 g/dl (13.5-18.0); MEAN CORPUSCULAR HEMOGLOBIN 34 pg (27.0-31.0)
[2018-10-02 12:30] LABS: BAND 45 % (0-10); EOSINOPHIL 5 % (0-4); LYMPHOCYTE 13 % (20.0-51.0); NEUTROPHILS 36 % (42.0-75.2)
[2018-10-02 12:31] LABS: ANISOCYTOSIS 3+; SCHISTOCYTES 1+
== END ==
LOC: ZLAB.STJ 09:55
PROVIDERS: Internal Medicine
DX: D46.9 Myelodysplastic syndrome, unspecified (principal)

== ENCOUNTER → 2018-10-09 | Outpatient (CLI) | payer MEDICARE, OTHER ==
[2018-10-09 10:10] LABS: MEAN CELL VOLUME 103 fl (80.0-100.0); MEAN CORPUSCULAR HGB CONC 34 g/dl (33.0-37.0); MEAN PLATELET VOLUME 10.1 fl (7.4-10.4); PLATELET COUNT 364 K/mm3 (130-400); RED BLOOD COUNT 2.17 M/mm3 (4.20-5.60); REDCELL DISTRIBUTION WIDTH-CV 26.2 % (11.5-14.5)
[2018-10-09 10:13] LABS: HEMATOCRIT 22.4 % (42.0-52.0); HEMOGLOBIN 7.5 g/dl (13.5-18.0); MEAN CORPUSCULAR HEMOGLOBIN 35 pg (27.0-31.0)
[2018-10-09 10:15] LABS: ALBUMIN 3.5 gm/dL (3.5-5.0); BILIRUBIN,TOTAL 0.6 mg/dL (0.0-1.0); CALCIUM 8.6 mg/dL (8.4-10.2); CREATININE, serum 0.97 mg/dL (0.66-1.25); POTASSIUM 4.7 mmol/L (3.4-5.0); TOTAL PROTEIN 5.5 gm/dL (6.4-8.2)
[2018-10-09 11:27] LABS: ANISOCYTOSIS 1+; BAND 34 % (0-10); EOSINOPHIL 4 % (0-4); HYPOCHROMIA 2+; LYMPHOCYTE 12 % (20.0-51.0); NEUTROPHILS 46 % (42.0-75.2)
[2018-10-09 11:28] LABS: SCHISTOCYTES 1+
[2018-10-09 11:29] LABS: HELMET CELLS 1+; PLATELET ESTIMATE NORMAL (NORMAL)
== END ==
LOC: ZLAB.STJ 09:42
PROVIDERS: Internal Medicine
DX: D46.9 Myelodysplastic syndrome, unspecified (principal)

== ENCOUNTER 2018-10-19 09:52 | Outpatient (RCR) | payer MEDICARE, OTHER ==
[2018-10-19] VITALS (10 sets, daily range): BP systolic 90–114; BP diastolic 41–68; PULSE 68–78; TEMP 97.1–98.2
[~2018-10-19] VITALS: Ht 177.8 cm; Wt 78.8 kg
--- NOTE | 2018-10-19 12:20 | NUR ---
Notified Dr. Blandon of consult
--- NOTE | 2018-10-19 18:24 | NUR ---
Patient tolerated blood transfusion well, vital signs stable, no complications noted, 2 units of PRBC transfused, I have notified his brother in-law who will come pick him up, IV discontinued from left arm
== END 2018-10-19 19:06 | disposition home or self-care (01) ==
LOC: EUO 09:52 → SURG 10:00 → EUO 19:06
DX: D46.1 Refractory anemia with ring sideroblasts (principal)
CPT/HCPCS: OP; J7050; P9040

== ENCOUNTER → 2018-10-24 | Outpatient (CLI) | payer MEDICARE, OTHER ==
[2018-10-24 09:18] LABS: MEAN CELL VOLUME 103 fl (80.0-100.0); MEAN CORPUSCULAR HGB CONC 33 g/dl (33.0-37.0); MEAN PLATELET VOLUME 11.1 fl (7.4-10.4); PLATELET COUNT 266 K/mm3 (130-400); RED BLOOD COUNT 2.61 M/mm3 (4.20-5.60); REDCELL DISTRIBUTION WIDTH-CV 24.5 % (11.5-14.5)
[2018-10-24 09:19] LABS: HEMATOCRIT 26.9 % (42.0-52.0); HEMOGLOBIN 8.8 g/dl (13.5-18.0); MEAN CORPUSCULAR HEMOGLOBIN 34 pg (27.0-31.0)
[2018-10-24 10:35] LABS: ANISOCYTOSIS 3+; EOSINOPHIL 25 % (0-4); LYMPHOCYTE 8 % (20.0-51.0); NEUTROPHILS 66 % (42.0-75.2); PLATELET ESTIMATE NORMAL (NORMAL)
== END ==
LOC: ZLAB.STJ 09:00
PROVIDERS: Internal Medicine
DX: D46.9 Myelodysplastic syndrome, unspecified (principal)

== ENCOUNTER → 2018-10-31 | Outpatient (CLI) | payer MEDICARE, OTHER ==
[2018-10-31 10:03] LABS: MEAN CELL VOLUME 105 fl (80.0-100.0); MEAN CORPUSCULAR HGB CONC 33 g/dl (33.0-37.0); MEAN PLATELET VOLUME 11.1 fl (7.4-10.4); PLATELET COUNT 168 K/mm3 (130-400); RED BLOOD COUNT 2.26 M/mm3 (4.20-5.60); REDCELL DISTRIBUTION WIDTH-CV 24.9 % (11.5-14.5)
[2018-10-31 10:04] LABS: HEMATOCRIT 23.7 % (42.0-52.0); HEMOGLOBIN 7.7 g/dl (13.5-18.0); MEAN CORPUSCULAR HEMOGLOBIN 34 pg (27.0-31.0)
[2018-10-31 10:22] LABS: ANISOCYTOSIS 3+; BAND 5 % (0-10); EOSINOPHIL 5 % (0-4); LYMPHOCYTE 21 % (20.0-51.0); NEUTROPHILS 68 % (42.0-75.2); NUCLEATED RED BLOOD CELL 2 (0-6); OVALOCYTES 1+; PLATELET ESTIMATE NORMAL (NORMAL); SCHISTOCYTES 2+; TARGET CELLS 1+
== END ==
LOC: ZLAB.STJ 09:12
PROVIDERS: Internal Medicine
DX: D46.9 Myelodysplastic syndrome, unspecified (principal)

== ENCOUNTER → 2018-11-06 | Outpatient (CLI) | payer MEDICARE, OTHER ==
[2018-11-06 10:05] LABS: MEAN CELL VOLUME 105 fl (80.0-100.0); MEAN CORPUSCULAR HGB CONC 33 g/dl (33.0-37.0); PLATELET COUNT 432 K/mm3 (130-400); RED BLOOD COUNT 2.09 M/mm3 (4.20-5.60); REDCELL DISTRIBUTION WIDTH-CV 25.9 % (11.5-14.5)
[2018-11-06 10:12] LABS: HEMOGLOBIN 7.3 g/dl (13.5-18.0); MEAN CORPUSCULAR HEMOGLOBIN 35 pg (27.0-31.0)
[2018-11-06 10:50] LABS: ANISOCYTOSIS 3+; BAND 14 % (0-10); EOSINOPHIL 8 % (0-4); LYMPHOCYTE 5 % (20.0-51.0); NEUTROPHILS 70 % (42.0-75.2); PLATELET ESTIMATE INCREASED (NORMAL)
[2018-11-06 10:51] LABS: OVALOCYTES 1+; POLYCHROMASIA 1+; SCHISTOCYTES 1+
[2018-11-06 10:52] LABS: TEAR DROP CELLS 1+
[2018-11-06 10:53] LABS: POIKILOCYTOSIS 1+
== END ==
LOC: ZLAB.STJ 09:45
PROVIDERS: Internal Medicine
DX: D46.9 Myelodysplastic syndrome, unspecified (principal)

== ENCOUNTER → 2018-11-20 | Outpatient (CLI) | payer MEDICARE, OTHER ==
[2018-11-20 10:08] LABS: MEAN CELL VOLUME 107 fl (80.0-100.0); MEAN CORPUSCULAR HGB CONC 33 g/dl (33.0-37.0); MEAN PLATELET VOLUME 10.3 fl (7.4-10.4); PLATELET COUNT 357 K/mm3 (130-400); RED BLOOD COUNT 1.92 M/mm3 (4.20-5.60)
[2018-11-20 10:14] LABS: HEMATOCRIT 20.6 % (42.0-52.0); HEMOGLOBIN 6.8 g/dl (13.5-18.0); MEAN CORPUSCULAR HEMOGLOBIN 35 pg (27.0-31.0)
[2018-11-20 10:40] LABS: BAND 1 % (0-10); EOSINOPHIL 11 % (0-4); LYMPHOCYTE 3 % (20.0-51.0); NEUTROPHILS 85 % (42.0-75.2); PLATELET ESTIMATE NORMAL (NORMAL)
== END ==
LOC: ZLAB.STJ 09:58
PROVIDERS: Internal Medicine
DX: D46.9 Myelodysplastic syndrome, unspecified (principal)

== ENCOUNTER 2018-11-21 12:59 | Outpatient (RCR) | payer MEDICARE, OTHER ==
[~2018-11-21] VITALS: Ht 177.8 cm; Wt 80.4 kg
[2018-11-21] VITALS (9 sets, daily range): BP systolic 92–124; BP diastolic 46–77; PULSE 74–81; TEMP 97.8–98.8
--- NOTE | 2018-11-21 16:52 | NUR ---
Report to Bon Khan RN who assumed care at this time.
--- NOTE | 2018-11-21 18:44 | NUR ---
JUHI HERE TO REINFORCED CONCRETE INSPECTOR PT AND TAKE BACK TO [facility]. PTS WALKER WAS LEFT DOWN IN PATIENT ENTRANCE TODAY. JUHI WILL REINFORCED CONCRETE INSPECTOR AT A LATER TIME.
== END 2018-11-21 18:45 ==
LOC: EUO 12:59
DX: D46.1 Refractory anemia with ring sideroblasts (principal)
CPT/HCPCS: J7050; P9040

== ENCOUNTER → 2018-11-27 | Outpatient (CLI) | payer MEDICARE, OTHER ==
[2018-11-27 13:25] LABS: MEAN CELL VOLUME 104 fl (80.0-100.0); MEAN CORPUSCULAR HGB CONC 33 g/dl (33.0-37.0); MEAN PLATELET VOLUME 11.7 fl (7.4-10.4); PLATELET COUNT 185 K/mm3 (130-400); RED BLOOD COUNT 2.46 M/mm3 (4.20-5.60)
[2018-11-27 13:26] LABS: HEMATOCRIT 25.5 % (42.0-52.0); HEMOGLOBIN 8.4 g/dl (13.5-18.0); MEAN CORPUSCULAR HEMOGLOBIN 34 pg (27.0-31.0)
[2018-11-27 13:44] LABS: ANISOCYTOSIS 3+; BAND 19 % (0-10); EOSINOPHIL 8 % (0-4); LYMPHOCYTE 8 % (20.0-51.0); METAMYELOCYTE 1 % (0-0); NEUTROPHILS 63 % (42.0-75.2); PLATELET ESTIMATE NORMAL (NORMAL); POLYCHROMASIA 1+; TARGET CELLS 1+
[2018-11-27 13:45] LABS: BURR CELLS 1+; SCHISTOCYTES 1+
== END ==
LOC: ZLAB.STJ 10:35
PROVIDERS: Internal Medicine
DX: D46.9 Myelodysplastic syndrome, unspecified (principal)

== ENCOUNTER → 2018-12-04 | Outpatient (CLI) | payer MEDICARE, OTHER ==
[2018-12-04 12:08] LABS: MEAN CELL VOLUME 108 fl (80.0-100.0); MEAN CORPUSCULAR HGB CONC 32 g/dl (33.0-37.0); MEAN PLATELET VOLUME 10.3 fl (7.4-10.4); PLATELET COUNT 428 K/mm3 (130-400); RED BLOOD COUNT 2.37 M/mm3 (4.20-5.60); REDCELL DISTRIBUTION WIDTH-CV 25.8 % (11.5-14.5)
[2018-12-04 12:36] LABS: HEMATOCRIT 25.5 % (42.0-52.0); HEMOGLOBIN 8.2 g/dl (13.5-18.0); MEAN CORPUSCULAR HEMOGLOBIN 35 pg (27.0-31.0)
[2018-12-04 13:12] LABS: BAND 32 % (0-10); EOSINOPHIL 9 % (0-4); HYPOCHROMIA 2+; LYMPHOCYTE 16 % (20.0-51.0); NEUTROPHILS 40 % (42.0-75.2); NUCLEATED RED BLOOD CELL 1 (0-6); PLATELET ESTIMATE INCREASED (NORMAL); POIKILOCYTOSIS 1+
== END ==
LOC: ZLAB.STJ 10:56
PROVIDERS: Internal Medicine
DX: D46.0 Refractory anemia without ring sideroblasts, so stated (principal)

== ENCOUNTER → 2018-12-11 | Outpatient (CLI) | payer MEDICARE, OTHER ==
[2018-12-11 13:18] LABS: MEAN CELL VOLUME 108 fl (80.0-100.0); MEAN CORPUSCULAR HGB CONC 33 g/dl (33.0-37.0); PLATELET COUNT 662 K/mm3 (130-400); RED BLOOD COUNT 2.26 M/mm3 (4.20-5.60); REDCELL DISTRIBUTION WIDTH-CV 26.5 % (11.5-14.5)
[2018-12-11 13:23] LABS: ALBUMIN 3.4 gm/dL (3.5-5.0); BILIRUBIN,TOTAL 0.7 mg/dL (0.0-1.0); CALCIUM 8.9 mg/dL (8.4-10.2); CREATININE, serum 1.02 (0.66-1.25); POTASSIUM 4.6 mmol/L (3.4-5.0); TOTAL PROTEIN 5.3 gm/dL (6.4-8.2)
[2018-12-11 13:42] LABS: HEMATOCRIT 24.4 % (42.0-52.0); MEAN CORPUSCULAR HEMOGLOBIN 35 pg (27.0-31.0)
[2018-12-11 13:56] LABS: BAND 17 % (0-10); EOSINOPHIL 4 % (0-4); LYMPHOCYTE 1 % (20.0-51.0); NEUTROPHILS 75 % (42.0-75.2); PLATELET ESTIMATE INCREASED (NORMAL)
== END ==
LOC: ZLAB.STJ 09:57
PROVIDERS: Internal Medicine
DX: D46.9 Myelodysplastic syndrome, unspecified (principal)

== ENCOUNTER → 2018-12-23 | Outpatient (CLI) | payer MEDICARE, OTHER ==
[2018-12-23 16:13] LABS: BASO % 0.1 % (0.0-2.0); EOS # 0.7 (0.0-0.7); EOS % 10.5 % (0-4.0); GRAN # 4.9 (1.4-6.5); GRAN % 70.7 % (42.2-75.2); LYMPH % 14.9 % (20.0-51.0); MEAN CELL VOLUME 106 fl (80.0-100.0); MEAN CORPUSCULAR HGB CONC 34 g/dl (33.0-37.0); MEAN PLATELET VOLUME 10.5 fl (7.4-10.4); MONO # 0.2 (0.1-0.6); MONO % 2.6 % (1.7-9.3); PLATELET COUNT 363 K/mm3 (130-400); RED BLOOD COUNT 1.85 M/mm3 (4.20-5.60)
[2018-12-23 17:05] LABS: HEMATOCRIT 19.6 % (42.0-52.0); HEMOGLOBIN 6.6 g/dl (13.5-18.0); MEAN CORPUSCULAR HEMOGLOBIN 36 pg (27.0-31.0)
== END ==
LOC: ZLAB.STJ 15:44
PROVIDERS: Internal Medicine
DX: D46.9 Myelodysplastic syndrome, unspecified (principal)

== ENCOUNTER 2018-12-25 13:00 | Outpatient (RCR) | payer MEDICARE, OTHER ==
[~2018-12-25] VITALS: Ht 177.8 cm; Wt 88.0 kg
[2018-12-25] VITALS (10 sets, daily range): BP systolic 104–141; BP diastolic 55–89; PULSE 70–87; TEMP 98.1–98.8
--- NOTE | 2018-12-25 17:32 | NUR ---
BLOOD INFUSED, [facility] CALLED FOR RIDE FOR PT, NO CHANGES FROM ASSESSMENT OR C/O, INT D'CD INTACT. PT ATE SUPPER AND USED URINAL AT BEDSIDE X2.
== END 2018-12-26 08:15 | disposition home or self-care (01) ==
LOC: EUO 13:00
DX: D46.1 Refractory anemia with ring sideroblasts (principal)
CPT/HCPCS: J7050; P9040

== ENCOUNTER → 2018-12-26 | Outpatient (CLI) | payer MEDICARE, OTHER ==
[2018-12-26 14:49] LABS: BASO % 0.3 % (0.0-2.0); EOS # 0.8 (0.0-0.7); EOS % 8.1 % (0-4.0); GRAN # 7.7 (1.4-6.5); GRAN % 77.4 % (42.2-75.2); LYMPH # 1.1 (1.2-3.4); LYMPH % 10.6 % (20.0-51.0); MEAN CORPUSCULAR HGB CONC 33 g/dl (33.0-37.0); MEAN PLATELET VOLUME 10.1 fl (7.4-10.4); MONO # 0.2 (0.1-0.6); MONO % 2.2 % (1.7-9.3); PLATELET COUNT 266 K/mm3 (130-400); RED BLOOD COUNT 2.63 M/mm3 (4.20-5.60); REDCELL DISTRIBUTION WIDTH-CV 25.3 % (11.5-14.5)
[2018-12-26 14:54] LABS: HEMATOCRIT 26.2 % (42.0-52.0); HEMOGLOBIN 8.7 g/dl (13.5-18.0); MEAN CELL VOLUME 100 fl (80.0-100.0); MEAN CORPUSCULAR HEMOGLOBIN 33 pg (27.0-31.0)
== END ==
LOC: ZLAB.STJ 14:27
PROVIDERS: Internal Medicine
DX: D46.9 Myelodysplastic syndrome, unspecified (principal)

== ENCOUNTER → 2019-01-02 | Outpatient (CLI) | payer MEDICARE, OTHER ==
[2019-01-02 16:10] LABS: MEAN CELL VOLUME 103 fl (80.0-100.0); MEAN CORPUSCULAR HGB CONC 33 g/dl (33.0-37.0); MEAN PLATELET VOLUME 12.1 fl (7.4-10.4); PLATELET COUNT 203 K/mm3 (130-400); RED BLOOD COUNT 2.38 M/mm3 (4.20-5.60); REDCELL DISTRIBUTION WIDTH-CV 23.9 % (11.5-14.5)
[2019-01-02 16:15] LABS: HEMATOCRIT 24.4 % (42.0-52.0); HEMOGLOBIN 8.1 g/dl (13.5-18.0); MEAN CORPUSCULAR HEMOGLOBIN 34 pg (27.0-31.0)
[2019-01-02 16:35] LABS: BAND 13 % (0-10); EOSINOPHIL 5 % (0-4); LYMPHOCYTE 13 % (20.0-51.0); NEUTROPHILS 69 % (42.0-75.2)
[2019-01-02 16:36] LABS: ANISOCYTOSIS 2+; HYPOCHROMIA 2+; PLATELET ESTIMATE NORMAL (NORMAL); POIKILOCYTOSIS 1+
== END ==
LOC: ZLAB.STJ 14:59
PROVIDERS: Internal Medicine
DX: D46.9 Myelodysplastic syndrome, unspecified (principal)

== ENCOUNTER → 2019-01-09 | Outpatient (CLI) | payer MEDICARE, OTHER ==
[2019-01-09 15:59] LABS: MEAN CELL VOLUME 104 fl (80.0-100.0); MEAN CORPUSCULAR HGB CONC 32 g/dl (33.0-37.0); PLATELET COUNT 494 K/mm3 (130-400)
[2019-01-09 16:13] LABS: HEMATOCRIT 22.9 % (42.0-52.0); HEMOGLOBIN 7.3 g/dl (13.5-18.0); MEAN CORPUSCULAR HEMOGLOBIN 33 pg (27.0-31.0)
[2019-01-09 18:06] LABS: BAND 25 % (0-10); EOSINOPHIL 2 % (0-4); LYMPHOCYTE 12 % (20.0-51.0); NEUTROPHILS 58 % (42.0-75.2); NUCLEATED RED BLOOD CELL 1 (0-6)
[2019-01-09 18:07] LABS: ANISOCYTOSIS 2+; HYPOCHROMIA 2+; POIKILOCYTOSIS 1+; POLYCHROMASIA 1+
[2019-01-09 18:09] LABS: PLATELET ESTIMATE NORMAL (NORMAL)
== END ==
LOC: ZLAB.STJ 13:59
PROVIDERS: Internal Medicine
DX: D46.9 Myelodysplastic syndrome, unspecified (principal)

== ENCOUNTER → 2019-01-15 | Outpatient (CLI) | payer MEDICARE, OTHER ==
[2019-01-15 14:00] LABS: MEAN CELL VOLUME 103 fl (80.0-100.0); MEAN CORPUSCULAR HGB CONC 33 g/dl (33.0-37.0); PLATELET COUNT 567 K/mm3 (130-400); RED BLOOD COUNT 2.11 M/mm3 (4.20-5.60); REDCELL DISTRIBUTION WIDTH-CV 25.6 % (11.5-14.5)
[2019-01-15 14:08] LABS: HEMATOCRIT 21.8 % (42.0-52.0); HEMOGLOBIN 7.2 g/dl (13.5-18.0); MEAN CORPUSCULAR HEMOGLOBIN 34 pg (27.0-31.0)
[2019-01-15 14:12] LABS: ALBUMIN 3.3 gm/dL (3.5-5.0); BILIRUBIN,TOTAL 0.5 mg/dL (0.0-1.0); CALCIUM 8.8 mg/dL (8.4-10.2); CREATININE, serum 1.34 (0.66-1.25); POTASSIUM 4.8 mmol/L (3.4-5.0); TOTAL PROTEIN 5.3 gm/dL (6.4-8.2)
[2019-01-15 14:34] LABS: BAND 15 % (0-10); EOSINOPHIL 1 % (0-4); LYMPHOCYTE 11 % (20.0-51.0); NEUTROPHILS 72 % (42.0-75.2); PLATELET ESTIMATE INCREASED (NORMAL)
[2019-01-15 14:35] LABS: ANISOCYTOSIS 1+
[2019-01-15 14:36] LABS: HYPOCHROMIA 2+; POIKILOCYTOSIS 1+; SCHISTOCYTES 1+
== END ==
LOC: ZCOL.LAB 13:46
PROVIDERS: Internal Medicine
DX: D46.9 Myelodysplastic syndrome, unspecified (principal)

== ENCOUNTER → 2019-01-28 | Outpatient (CLI) | payer MEDICARE, OTHER ==
[2019-01-28 14:38] LABS: MEAN CELL VOLUME 102 fl (80.0-100.0); MEAN CORPUSCULAR HGB CONC 33 g/dl (33.0-37.0); MEAN PLATELET VOLUME 11.1 fl (7.4-10.4); PLATELET COUNT 401 K/mm3 (130-400); RED BLOOD COUNT 1.92 M/mm3 (4.20-5.60)
[2019-01-28 14:42] LABS: HEMATOCRIT 19.6 % (42.0-52.0); HEMOGLOBIN 6.4 g/dl (13.5-18.0); MEAN CORPUSCULAR HEMOGLOBIN 33 pg (27.0-31.0)
[2019-01-28 15:25] LABS: ANISOCYTOSIS 2+; BAND 13 % (0-10); EOSINOPHIL 13 % (0-4); HYPOCHROMIA 2+; LYMPHOCYTE 19 % (20.0-51.0); NEUTROPHILS 53 % (42.0-75.2); TEAR DROP CELLS 1+
[2019-01-28 15:27] LABS: OVALOCYTES 1+
[2019-01-28 15:28] LABS: PLATELET ESTIMATE INCREASED (NORMAL)
== END ==
LOC: ZLAB.STJ 10:53
PROVIDERS: Internal Medicine
DX: D46.9 Myelodysplastic syndrome, unspecified (principal)

== ENCOUNTER 2019-01-30 12:30 | Outpatient (RCR) | payer MEDICARE, OTHER ==
[~2019-01-30] VITALS: Ht 177.8 cm; Wt 84.3 kg
[2019-01-30] VITALS (9 sets, daily range): BP systolic 112–135; BP diastolic 38–71; PULSE 62–79; TEMP 97.6–98.2
== END 2019-01-30 17:07 ==
LOC: EUO 12:30
DX: D46.1 Refractory anemia with ring sideroblasts (principal)
CPT/HCPCS: J7050; P9040

== ENCOUNTER 2019-02-21 13:00 | Outpatient (RCR) | payer MEDICARE, OTHER ==
[~2019-02-21] VITALS: Ht 177.8 cm; Wt 83.6 kg
[2019-02-21] VITALS (10 sets, daily range): BP systolic 80–101; BP diastolic 50–62; PULSE 77–85; TEMP 97.4–99.1
== END 2019-02-21 18:44 ==
LOC: EUO 13:00
DX: D46.1 Refractory anemia with ring sideroblasts (principal)
CPT/HCPCS: J7050; P9040

== ENCOUNTER 2019-03-27 13:00 | Outpatient (RCR) | payer MEDICARE, OTHER ==
[2019-03-27] VITALS (10 sets, daily range): BP systolic 98–148; BP diastolic 46–63; PULSE 70–81; TEMP 97.7–98.9
[~2019-03-27] VITALS: Ht 177.8 cm; Wt 81.4 kg
[2019-03-27] MEDS ORDERED: MULTI VITAMINS1 TAB PO (15:34)
[2019-03-27] MEDS ORDERED: FLORINEF ACETA0.1 MG PO (15:35)
--- NOTE | 2019-03-27 16:27 | NUR ---
I called office of Dr. Clint Samson at [facility] to schedule follow up appt for pt for groin check and BMP. Per clamp jig assembler at Dr. Samson's office, pt was instructed to go to lab prior to a previously scheduled bladder scan Saturday 03/31 0800... then to go to DR. Farrell office at 0930 for recheck of groin. These instructions were written on pt's discharge instructions and will be reviewed verbally with patient and his daughter prior to discharge
--- NOTE | 2019-03-27 17:19 | NUR ---
Pt tolerating transfusion well, pt was ambulatory to br at the start of his 2nd unit. RN accompanied pt to br for stand by. PT back in recliner now, warm blanket provided, no complaints at this time.
--- NOTE | 2019-03-27 17:46 | NUR ---
Report to Leonard Boo RN who assumed care at this time.
--- NOTE | 2019-03-27 18:36 | NUR ---
osmel Wong [facility] ([phone]) for a ride home for Mr. Petersen.
== END 2019-03-27 18:54 | disposition home or self-care (01) ==
LOC: EUO 13:00
DX: D46.1 Refractory anemia with ring sideroblasts (principal)
CPT/HCPCS: J7050; P9040

== ENCOUNTER 2019-04-10 13:00 | Outpatient (RCR) | payer MEDICARE, OTHER ==
[2019-04-10] VITALS (9 sets, daily range): BP systolic 104–140; BP diastolic 51–93; PULSE 77–93; TEMP 37.2
[~2019-04-10] VITALS: Ht 177.8 cm; Wt 83.0 kg
== END 2019-04-10 18:15 ==
LOC: EUO 13:00
DX: D46.1 Refractory anemia with ring sideroblasts (principal)
CPT/HCPCS: J7050; P9040

== ENCOUNTER 2019-05-29 13:00 | Outpatient (RCR) | payer MEDICARE, OTHER ==
[2019-05-08] VITALS (10 sets, daily range): BP systolic 104–151; BP diastolic 38–80; PULSE 74–80; TEMP 97.5–98.9
--- NOTE | 2019-05-08 18:06 | NUR ---
TRANSFUSION ENDED, PT UP ON BSC, HAD LOOSE STOOL AND VOIDED, CALLED FOR RIDE AT [facility]. IV D'CD INTACT
[~2019-05-29] VITALS: Ht 177.8 cm; Wt 75.0 kg
[2019-05-29] VITALS (11 sets, daily range): BP systolic 99–131; BP diastolic 46–59; PULSE 72–83; TEMP 98.5–98.7
== END 2019-05-30 11:44 | disposition home or self-care (01) ==
LOC: EUO 13:00
DX: D46.1 Refractory anemia with ring sideroblasts (principal)
CPT/HCPCS: J7050; P9040

== ENCOUNTER 2019-06-19 13:00 | Outpatient (RCR) | payer MEDICARE, OTHER ==
[2019-06-19] VITALS (9 sets, daily range): BP systolic 77–99; BP diastolic 51–73; PULSE 65–75; TEMP 97.5–98.2
[~2019-06-19] VITALS: Ht 177.8 cm; Wt 84.0 kg
--- NOTE | 2019-06-19 17:49 | NUR ---
Report to Ciara Tate RN who assumed care at this time.
== END 2019-06-19 18:31 | disposition home or self-care (01) ==
LOC: EUO 13:00
DX: D46.1 Refractory anemia with ring sideroblasts (principal)
CPT/HCPCS: J7050; P9040

== ENCOUNTER 2019-07-12 14:17 | Outpatient (RCR) | payer MEDICARE, OTHER ==
[2019-07-12] VITALS (13 sets, daily range): BP systolic 106–142; BP diastolic 39–73; PULSE 77–87; TEMP 98–99
--- NOTE | 2019-07-12 15:49 | NUR ---
PATIENT PRESENT TO HOSPITAL FOR OUTPATIENT BLOOD TRANSFUSION ORDERED BY DR. TORRES FOR HGB OF 6.6. A/O X 4, NO COMPLAINTS OF PAIN OR DISCOMFORT. AMBULATED TO BED FROM WITH STAND BY ASSIT. STTOOPED WITH STEADY GAIT. SEE FLOW SHEET FOR FVS OBTAINED. LUNG SOUNDS CTA THROUGHOUT WITH GOOD AIR EXCHANGE. NO C/O CHEST PAIN OR SOA. HEART REGULAR. 1+ PITTING EDEMA TO BLE. ALLERGIES REVIEWED. SEE EMAR FOR MEDICATIONS ADMINISTERED ORDERED PRIOR TO STARTING BLOOD TRANSFUSION. SIGNED CONSENT OBTAINED. PATIENT STATES HE GETS BLOOD TRANSFUSIONS ABOUT EVERY 2 MONTHS AND HAS NEVER HAD ANY COMPLICATIONS. HAS NO QUESTIONS OR CONCERNS REGARDING TRANSFUSION. IV ACCESS OBTAINED IN RIGHT MID FOREARM WITH 20G IV CATHETER X 1. ATTEMPT. BLOOD TRANSFUSION INITIATED AT 1545 PER HOSPITAL POLICY AFTER TO RN VERIFICATION. REMAINED IN ROOM WITH PATIENT FIRST 15 MINUETS OF TRANSFUSION.
--- NOTE | 2019-07-12 19:32 | NUR ---
Pt. sitting up in bed at this time. Pt. is A&OX3, assessment complete. Blood transfusion almost complete. Pt. to discharge after transfusion complete.
--- NOTE | 2019-07-12 19:41 | NUR ---
Blood transfusion complete. INT discontinued from rt. forearm. Pt. tolerated well. Pt. waiting for ride. Will call when ride arrives.
--- NOTE | 2019-07-12 20:05 | NUR ---
Pt.'s ride has arrived. Pt. escorted out with ASSISTANT OPERATIONS MANAGER.
== END 2019-07-12 20:00 ==
LOC: EUO 14:17 → MEDICAL 14:26 → EUO 20:00
DX: D46.1 Refractory anemia with ring sideroblasts (principal)
CPT/HCPCS: OP; P9040

== ENCOUNTER 2019-07-25 14:00 | Outpatient (RCR) | payer MEDICARE, OTHER ==
[2019-07-25 13:27] VITALS: BP 83/54; PULSE 78; TEMP 98.7
[2019-07-25 13:42] VITALS: BP 82/60; PULSE 79; TEMP 98.6
[2019-07-25 13:57] VITALS: BP 83/55; PULSE 77; TEMP 98.6
[2019-07-25 14:12] VITALS: BP 76/52; PULSE 78; TEMP 98.6
[2019-07-25 14:53] VITALS: BP 93/64; PULSE 76; TEMP 98.3
== END 2019-07-25 15:00 ==
LOC: EUO 14:00
DX: D46.1 Refractory anemia with ring sideroblasts (principal)
CPT/HCPCS: J7050; P9040

== ENCOUNTER 2019-08-02 12:49 | Outpatient (RCR) | payer MEDICARE, OTHER ==
[~2019-08-02] VITALS: Ht 177.8 cm; Wt 86.5 kg
[2019-08-02] VITALS (13 sets, daily range): BP systolic 104–139; BP diastolic 35–51; PULSE 71–90; TEMP 97.9–98.8
--- NOTE | 2019-08-02 15:20 | NUR ---
Patient has first unit of blood transfusing. Protocol followed. Explained to patient what reactions he needs to notify me of. Consent is signed on chart. Patient is tolerating blood transfusion at this time with no complaints of pain. IV site intact, no irritation or soreness. No other changes at this time. Call light within reach. Patient was given tylenol and benadryl as ordered.
--- NOTE | 2019-08-02 15:30 | NUR ---
Patient continues to do well with transfusion. Denies shortness of breath or pain. IV sites is still intact. NO other signs or symptoms of reaction noted at this time. Vital signs stable. No other changes at this time. Call light within reach. Rate increased to 100ml/hr.
--- NOTE | 2019-08-02 21:00 | NUR ---
2nd UNIT PRBCs COMPLETED/TRANSFUSED. NO ADVERSE REACTIONS NOTED. PT'S RIDE HOME NOTIFIED, IS HERE AND IS TAKING HIM HOME. I.V. D.C.'d, CATHETER INTACT. PT ESCORTED OUT VIA WHEELCHAIR.
== END 2019-08-02 21:00 | disposition home or self-care (01) ==
LOC: SURG 12:49 → EUO 12:49
DX: D46.1 Refractory anemia with ring sideroblasts (principal)
CPT/HCPCS: OP; P9040

== ENCOUNTER 2019-09-05 14:14 | Outpatient (RCR) | payer MEDICARE, OTHER ==
[2019-09-05] VITALS (10 sets, daily range): BP systolic 79–149; BP diastolic 47–79; PULSE 70–84; TEMP 98.3–99.5
== END 2019-09-05 21:00 | disposition home or self-care (01) ==
LOC: EUO 14:14
DX: D46.1 Refractory anemia with ring sideroblasts (principal)
CPT/HCPCS: J7050; P9040

== ENCOUNTER 2019-09-22 16:28 | Outpatient (RCR) | payer MEDICARE, OTHER ==
[2019-09-22] VITALS (10 sets, daily range): BP systolic 78–975; BP diastolic 37–66; PULSE 68–74; TEMP 97.3–98.5
--- NOTE | 2019-09-22 16:27 | NUR ---
Pt arrived today for blood transfusion.Pt was scheduled for sunday but did not show.
== END 2019-09-23 08:44 | disposition home or self-care (01) ==
LOC: EUO 16:28
DX: D46.1 Refractory anemia with ring sideroblasts (principal)
CPT/HCPCS: J7050; P9040

== ENCOUNTER 2019-10-09 15:40 | Outpatient (RCR) | payer MEDICARE, OTHER ==
[2019-10-10] VITALS (9 sets, daily range): BP systolic 88–111; BP diastolic 55–68; PULSE 73–84; TEMP 98.1–98.9
== END 2019-10-10 19:00 | disposition home or self-care (01) ==
LOC: EUO 15:40
DX: D46.9 Myelodysplastic syndrome, unspecified (principal); I10 Essential (primary) hypertension; I95.9 Hypotension, unspecified; I73.9 Peripheral vascular disease, unspecified; R53.83 Other fatigue; Z87.891 Personal history of nicotine dependence
CPT/HCPCS: J7050; P9040

== ENCOUNTER 2019-10-24 13:30 | Outpatient (RCR) | payer MEDICARE, OTHER ==
[2019-10-24] VITALS (10 sets, daily range): BP systolic 71–100; BP diastolic 35–67; PULSE 68–88; TEMP 97.7–99.1
[~2019-10-24] VITALS: Ht 177.8 cm; Wt 85.7 kg
--- NOTE | 2019-10-24 17:10 | NUR ---
PT COMPLETED TRANSFUSION AND TOLERATED WELL. BLOOD PRESSURE INCREASED POST INFUSION AND PT STATES HE "FEELS BETTER". NO ADVERSE REACTION. TRANSPORTATION CALLED FOR PT TO RETURN TO [facility]. DARIEL BERKOWITZ DISCHARGED PT VIA W/C TO THE CARE OF [facility] TRANSPORTATION.
== END 2019-10-24 17:18 ==
LOC: EUO 13:30
DX: D46.9 Myelodysplastic syndrome, unspecified (principal); E87.1 Hypo-osmolality and hyponatremia; R19.7 Diarrhea, unspecified; I10 Essential (primary) hypertension; I73.9 Peripheral vascular disease, unspecified; I95.9 Hypotension, unspecified; Z79.899 Other long term (current) drug therapy
CPT/HCPCS: J7050; P9040

== ENCOUNTER 2019-11-10 13:00 | Outpatient (RCR) | payer MEDICARE, OTHER ==
[2019-11-10] VITALS (8 sets, daily range): BP systolic 103–143; BP diastolic 50–68; PULSE 42–78; TEMP 97.7–98.6
[~2019-11-10] VITALS: Ht 177.8 cm; Wt 79.5 kg
== END 2019-11-10 18:37 | disposition home or self-care (01) ==
LOC: EUO 13:00
DX: D46.1 Refractory anemia with ring sideroblasts (principal)
CPT/HCPCS: J7050; P9040

== ENCOUNTER 2019-11-28 13:00 | Outpatient (RCR) | payer MEDICARE, OTHER ==
[2019-11-28] VITALS (8 sets, daily range): BP systolic 96–125; BP diastolic 60–72; PULSE 71–76; TEMP 98.4–98.6
== END 2019-11-28 16:23 ==
LOC: EUO 13:00
DX: D46.1 Refractory anemia with ring sideroblasts (principal)
CPT/HCPCS: J7050; P9040

== ENCOUNTER 2019-12-05 13:30 | Outpatient (RCR) | payer MEDICARE, OTHER ==
[2019-12-05] VITALS (8 sets, daily range): BP systolic 52–98; BP diastolic 37–95; PULSE 48–70; TEMP 98–98.4
[~2019-12-05] VITALS: Ht 177.8 cm; Wt 82.3 kg
== END 2019-12-05 18:30 | disposition home or self-care (01) ==
LOC: EUO 13:30
DX: D46.1 Refractory anemia with ring sideroblasts (principal)
CPT/HCPCS: J7050; P9040

== ENCOUNTER → 2019-12-05 | Outpatient (CLI) | payer MEDICARE, OTHER ==
[2019-12-05 21:22] LABS: CLOSTRIDIUM DIFF A/B NEG; CLOSTRIDIUM DIFF A/B INTERP No C.diff present
== END ==
LOC: ZCOL.LAB 18:17
PROVIDERS: Internal Medicine
DX: R19.7 Diarrhea, unspecified (principal)

== ENCOUNTER 2019-12-19 13:30 | Outpatient (RCR) | payer MEDICARE, OTHER ==
[~2019-12-19] VITALS: Ht 177.8 cm; Wt 83.4 kg
[2019-12-19] VITALS (11 sets, daily range): BP systolic 92–123; BP diastolic 43–84; PULSE 76–83; TEMP 96.7–97.4
== END 2019-12-19 19:18 ==
LOC: EUO 13:30
DX: D46.1 Refractory anemia with ring sideroblasts (principal)
CPT/HCPCS: J7050; P9040

== ENCOUNTER 2020-01-16 14:00 | Outpatient (RCR) | payer MEDICARE, OTHER ==
[~2020-01-16] VITALS: Ht 177.8 cm; Wt 77.7 kg
[2020-01-16] VITALS (9 sets, daily range): BP systolic 64–107; BP diastolic 42–98; PULSE 71–81; TEMP 97.7–99.1
[2020-01-16] MEDS ORDERED: TYLENOL 325MG325 MG PO (15:03)
[2020-01-16] MEDS ORDERED: PREPH RC (15:04)
[2020-01-16] MEDS ORDERED: SYNTHROID0.125 MG/T PO (15:05)
[2020-01-16] MEDS ORDERED: COLESTID 1GM1 G PO (15:05)
--- NOTE | 2020-01-16 15:23 | NUR ---
Patient's bp dropped to 59/43 after initial start of transfusion.This nurse rechecked bp and observed 72/46,pulse of 79 at 1511.Call made to Dr Claros,message left.Blood stopped until callback received. Attempted to call again,no answer.Call made to Dr Cali,order received to continue infusion after report given.After call with Dr Cali I received callback from Dr Claros and same order received.Infusion restarted at 1517.Per Dr Claros pt was systolic in the 70s.Patient is awake, alert, and orientated x 3.Patient has ate cheesburge and fries upon arrival.Pt denies symptoms of reactions.See flowsheet for full vitals.Will continue to monitor closely.
--- NOTE | 2020-01-16 17:16 | NUR ---
Report to Duane Alatorre.
--- NOTE | 2020-01-16 19:15 | NUR ---
PT READY FOR DEPARTURE. IV IS DC'D, CATH INTACT, DRESSING APPLIED. PT WAITING IN WHEELCHAIR, HALF-WAY HAS BEEN CALLED FOR A RIDE.
== END 2020-01-16 19:44 | disposition home or self-care (01) ==
LOC: EUO 14:00
DX: D46.9 Myelodysplastic syndrome, unspecified (principal)
CPT/HCPCS: J7050; P9040

== ENCOUNTER → 2020-01-23 | Outpatient (CLI) | payer MEDICARE, OTHER ==
[~2020-01-23] MED LIST changes: +COLESTID 1GM1 G PO; +PREPH RC; +SYNTHROID0.125 MG/T PO
[2020-01-23 14:14] LABS: BASO % 0.7 % (0.0-2.0); EOS # 0.6 (0.0-0.7); EOS % 22.1 % (0-4.0); GRAN # 1.4 (1.4-6.5); GRAN % 49.1 % (42.2-75.2); LYMPH # 0.5 (1.2-3.4); LYMPH % 17.5 % (20.0-51.0); MEAN CELL VOLUME 92 fl (80.0-100.0); MEAN CORPUSCULAR HGB CONC 33 g/dl (33.0-37.0); MEAN PLATELET VOLUME 10.6 fl (7.4-10.4); MONO # 0.3 (0.1-0.6); MONO % 10.2 % (1.7-9.3); PLATELET COUNT 157 K/mm3 (130-400); RED BLOOD COUNT 2.15 M/mm3 (4.20-5.60); REDCELL DISTRIBUTION WIDTH-CV 17.4 % (11.5-14.5)
[2020-01-23 14:19] LABS: HEMATOCRIT 19.8 % (42.0-52.0); HEMOGLOBIN 6.5 g/dl (13.5-18.0); MEAN CORPUSCULAR HEMOGLOBIN 30 pg (27.0-31.0)
[2020-01-24 10:00] LABS: BASO % 0.6 % (0.0-2.0); EOS # 0.7 (0.0-0.7); EOS % 21.3 % (0-4.0); GRAN # 1.7 (1.4-6.5); GRAN % 50.8 % (42.2-75.2); LYMPH # 0.6 (1.2-3.4); LYMPH % 19.2 % (20.0-51.0); MEAN CELL VOLUME 92 fl (80.0-100.0); MEAN CORPUSCULAR HGB CONC 32 g/dl (33.0-37.0); MEAN PLATELET VOLUME 10.1 fl (7.4-10.4); MONO # 0.3 (0.1-0.6); MONO % 7.8 % (1.7-9.3); PLATELET COUNT 182 K/mm3 (130-400); RED BLOOD COUNT 2.31 M/mm3 (4.20-5.60); REDCELL DISTRIBUTION WIDTH-CV 17.4 % (11.5-14.5)
[2020-01-24 12:51] LABS: HEMATOCRIT 21.3 % (42.0-52.0); HEMOGLOBIN 6.8 g/dl (13.5-18.0); MEAN CORPUSCULAR HEMOGLOBIN 29 pg (27.0-31.0)
== END ==
LOC: ZLAB.STJ 13:39
PROVIDERS: Internal Medicine
DX: I48.91 Unspecified atrial fibrillation (principal)

== ENCOUNTER 2020-01-25 10:21 | Outpatient (RCR) | payer MEDICARE, OTHER ==
[~2020-01-25] VITALS: Ht 177.8 cm; Wt 80.0 kg
[2020-01-25] VITALS (10 sets, daily range): BP systolic 60–102; BP diastolic 24–64; PULSE 64–75; TEMP 97.5–97.8
--- NOTE | 2020-01-25 09:30 | NUR ---
Patient to room 314 by wheelchair from ED admissions. Patient A&Ox3. Denies pain and discomfort. VSS, BP hypotensive, doctor notified and aware. Assessment complete. Lungs CTA, HRR. Bowels audible. Patient is pale. Nurse oriented patient to room, call light and bed. Patient instructed to call nursing staff for assistance with ambulation. No further needs expressed from patient. Call light within reach. Bed alarm on. Patient is here for a blood transfusion.
--- NOTE | 2020-01-25 12:30 | NUR ---
ALPHONSO received a call from nurse about transport of patient back to [facility]. ALPHONSO contacted Chevy at [facility], who indicated that transport could be arranged, but it is usually difficult after 2 oclock. V was informed of approximate time of when transfusion would be complete and SW requested contact number so patient could be picked up and transported home. Parker provided the following number to be called for patient transport coordination [phone]. ALPHONSO called patients nurse back and gave her the information. Transport time will be around about 5 or 6.
--- NOTE | 2020-01-25 13:01 | NUR ---
Transfusion started, patient tolerating well. Low BP 62/39, patient asymptomatic, verified with Nurse DARIEL Rodriguez. Patient eatting lunch at the time. Nurse at the bedside. No further needs expressed from the patient. Call light within reach. Will continue to monitor
--- NOTE | 2020-01-25 13:06 | NUR ---
Nurse at the bedside for 15 minutes. Patient tolerating blood transfusion. Call light within reach. Will continue to monitor
--- NOTE | 2020-01-25 15:45 | NUR ---
First transfusion complete. Patient tolerated well. VSS BP hypotensive, doctor aware. IV CDI. Second unit infusing. Nurse at the bedside. Call light within reach
--- NOTE | 2020-01-25 15:55 | NUR ---
Nurse at the bed side for 15 minutes. Patient tolerating second blood transfusion. VSS. IV CDI. Call light within reach
--- NOTE | 2020-01-25 18:11 | NUR ---
Second transfusion complete. Patient tolerated well VSS. IV CDI. No further needs expressed from patient. Call light within reach
--- NOTE | 2020-01-25 18:37 | NUR ---
Patient assisted into wheelcahir by the nurse. Nursing staff transferred patient to ER entrance to [facility] transporter. No further needs expressed from the patient.
== END 2020-01-25 18:45 | disposition home or self-care (01) ==
LOC: EUO 10:21 → MEDICAL 10:23 → EUO 11:32
DX: D46.1 Refractory anemia with ring sideroblasts (principal)
CPT/HCPCS: OP; J7050; P9040

== ENCOUNTER → 2020-02-05 | Outpatient (CLI) | payer MEDICARE, OTHER ==
[2020-02-05 11:13] LABS: BASO % 0.3 % (0.0-2.0); EOS # 0.7 (0.0-0.7); EOS % 19.6 % (0-4.0); GRAN # 1.8 (1.4-6.5); GRAN % 49.8 % (42.2-75.2); LYMPH # 0.8 (1.2-3.4); MEAN CELL VOLUME 92 fl (80.0-100.0); MEAN CORPUSCULAR HGB CONC 33 g/dl (33.0-37.0); MONO # 0.3 (0.1-0.6); PLATELET COUNT 234 K/mm3 (130-400); RED BLOOD COUNT 2.27 M/mm3 (4.20-5.60); REDCELL DISTRIBUTION WIDTH-CV 16.1 % (11.5-14.5)
[2020-02-05 11:59] LABS: HEMATOCRIT 20.9 % (42.0-52.0); HEMOGLOBIN 6.8 g/dl (13.5-18.0); MEAN CORPUSCULAR HEMOGLOBIN 30 pg (27.0-31.0)
== END ==
LOC: ZLAB.STJ 10:57
PROVIDERS: Internal Medicine
DX: I48.91 Unspecified atrial fibrillation (principal)

== ENCOUNTER 2020-02-06 13:00 | Outpatient (RCR) | payer MEDICARE, OTHER ==
[2020-02-06] VITALS (9 sets, daily range): BP systolic 95–123; BP diastolic 49–78; PULSE 62–72; TEMP 98.1–98.4
[~2020-02-06] VITALS: Ht 177.8 cm; Wt 86.8 kg
== END 2020-02-06 17:01 | disposition home or self-care (01) ==
LOC: EUO 13:00
DX: D46.1 Refractory anemia with ring sideroblasts (principal)
CPT/HCPCS: J7050; P9040

== ENCOUNTER → 2020-02-12 | Outpatient (CLI) | payer MEDICARE, OTHER ==
[2020-02-12 13:18] LABS: BASO % 0.3 % (0.0-2.0); EOS # 0.7 (0.0-0.7); EOS % 19.5 % (0-4.0); GRAN # 1.8 (1.4-6.5); GRAN % 52.2 % (42.2-75.2); LYMPH # 0.7 (1.2-3.4); LYMPH % 20.1 % (20.0-51.0); MEAN CELL VOLUME 90 fl (80.0-100.0); MEAN CORPUSCULAR HGB CONC 32 g/dl (33.0-37.0); MEAN PLATELET VOLUME 9.7 fl (7.4-10.4); MONO # 0.3 (0.1-0.6); MONO % 7.6 % (1.7-9.3); PLATELET COUNT 188 K/mm3 (130-400); RED BLOOD COUNT 2.72 M/mm3 (4.20-5.60); REDCELL DISTRIBUTION WIDTH-CV 15.3 % (11.5-14.5)
[2020-02-12 13:21] LABS: ALBUMIN 3.2 gm/dL (3.5-5.0); BILIRUBIN,TOTAL 0.6 mg/dL (0.0-1.0); CALCIUM 8.5 mg/dL (8.4-10.2); CREATININE, serum 1.12 (0.66-1.25); POTASSIUM 4.3 mmol/L (3.4-5.0); TOTAL PROTEIN 5.5 gm/dL (6.4-8.2)
[2020-02-12 13:25] LABS: HEMATOCRIT 24.6 % (42.0-52.0); HEMOGLOBIN 7.8 g/dl (13.5-18.0); MEAN CORPUSCULAR HEMOGLOBIN 29 pg (27.0-31.0)
== END ==
LOC: ZLAB.STJ 12:34
PROVIDERS: Internal Medicine
DX: I10 Essential (primary) hypertension (principal); I48.91 Unspecified atrial fibrillation; R74.0 Nonspecific elevation of levels of transaminase and lactic acid dehydrogenase [LDH]

== ENCOUNTER → 2020-02-27 | Outpatient (CLI) | payer MEDICARE, OTHER ==
[2020-02-27 15:28] LABS: BASO % 0.2 % (0.0-2.0); EOS # 0.5 (0.0-0.7); EOS % 10.2 % (0-4.0); GRAN # 3.1 (1.4-6.5); LYMPH # 0.6 (1.2-3.4); LYMPH % 13.6 % (20.0-51.0); MEAN CELL VOLUME 88 fl (80.0-100.0); MEAN CORPUSCULAR HGB CONC 33 g/dl (33.0-37.0); MONO # 0.4 (0.1-0.6); MONO % 9.4 % (1.7-9.3); PLATELET COUNT 217 K/mm3 (130-400); RED BLOOD COUNT 2.07 M/mm3 (4.20-5.60); REDCELL DISTRIBUTION WIDTH-CV 15.2 % (11.5-14.5)
[2020-02-27 15:35] LABS: HEMATOCRIT 18.3 % (42.0-52.0); MEAN CORPUSCULAR HEMOGLOBIN 29 pg (27.0-31.0)
[2020-02-27 15:36] LABS: HEMOGLOBIN 6.1 g/dl (13.5-18.0)
== END ==
LOC: ZLAB.STJ 14:31
PROVIDERS: Internal Medicine
DX: D46.9 Myelodysplastic syndrome, unspecified (principal)

== ENCOUNTER 2020-02-28 13:04 | Outpatient (RCR) | payer MEDICARE, OTHER ==
[~2020-02-28] VITALS: Ht 177.8 cm; Wt 78.1 kg
[2020-02-28] VITALS (8 sets, daily range): BP systolic 76–139; BP diastolic 37–59; PULSE 67–76; TEMP 98–98.4
--- NOTE | 2020-02-28 18:56 | NUR ---
patient tolerated blood transfusion well without any complications, vital signs stable, I have called [facility] to have transportation come pick him up at 1930, IV site removed from right arm/ Coban and gauze applied
== END 2020-02-28 18:57 | disposition home or self-care (01) ==
LOC: MEDICAL 13:04 → EUO 13:04
DX: D46.1 Refractory anemia with ring sideroblasts (principal)
CPT/HCPCS: OP; J7050; P9040

== ENCOUNTER → 2020-03-04 | Outpatient (CLI) | payer MEDICARE, OTHER ==
[2020-03-04 14:12] LABS: MEAN CELL VOLUME 89 fl (80.0-100.0); MEAN CORPUSCULAR HGB CONC 33 g/dl (33.0-37.0); MEAN PLATELET VOLUME 10.2 fl (7.4-10.4); PLATELET COUNT 207 K/mm3 (130-400); RED BLOOD COUNT 2.35 M/mm3 (4.20-5.60)
[2020-03-04 14:18] LABS: MEAN CORPUSCULAR HEMOGLOBIN 29 pg (27.0-31.0)
[2020-03-04 14:21] LABS: HEMOGLOBIN 6.9 g/dl (13.5-18.0)
== END ==
LOC: ZCOL.LAB 13:32
PROVIDERS: Internal Medicine
DX: D46.9 Myelodysplastic syndrome, unspecified (principal)

== ENCOUNTER 2020-03-05 13:30 | Outpatient (RCR) | payer MEDICARE, OTHER ==
[2020-03-05] VITALS (11 sets, daily range): BP systolic 99–144; BP diastolic 56–74; PULSE 65–76; TEMP 97.3–99
[2020-03-05] MEDS ORDERED: TYLENOL 325MG325 MG PO (19:37)
== END 2020-03-05 18:45 ==
LOC: EUO 13:30
DX: D46.1 Refractory anemia with ring sideroblasts (principal)
CPT/HCPCS: J7050; P9040

== ENCOUNTER → 2020-03-11 | Outpatient (CLI) | payer MEDICARE, OTHER ==
[2020-03-11 13:03] LABS: BASO % 0.3 % (0.0-2.0); EOS # 1.1 (0.0-0.7); EOS % 17.8 % (0-4.0); GRAN # 3.7 (1.4-6.5); GRAN % 62.5 % (42.2-75.2); LYMPH # 0.7 (1.2-3.4); LYMPH % 11.2 % (20.0-51.0); MEAN CELL VOLUME 91 fl (80.0-100.0); MEAN CORPUSCULAR HGB CONC 32 g/dl (33.0-37.0); MEAN PLATELET VOLUME 10.4 fl (7.4-10.4); MONO # 0.5 (0.1-0.6); MONO % 7.9 % (1.7-9.3); PLATELET COUNT 239 K/mm3 (130-400); RED BLOOD COUNT 2.81 M/mm3 (4.20-5.60); REDCELL DISTRIBUTION WIDTH-CV 15.5 % (11.5-14.5)
[2020-03-11 13:07] LABS: HEMATOCRIT 25.6 % (42.0-52.0); HEMOGLOBIN 8.2 g/dl (13.5-18.0); MEAN CORPUSCULAR HEMOGLOBIN 29 pg (27.0-31.0)
[2020-03-11 13:33] LABS: ALBUMIN 3.5 gm/dL (3.5-5.0); BILIRUBIN,TOTAL 0.8 mg/dL (0.0-1.0); CALCIUM 8.7 mg/dL (8.4-10.2); CREATININE, serum 1.31 (0.66-1.25); POTASSIUM 4.2 mmol/L (3.4-5.0); TOTAL PROTEIN 5.9 gm/dL (6.4-8.2)
== END ==
LOC: ZLAB.STJ 12:09
PROVIDERS: Internal Medicine
DX: D46.9 Myelodysplastic syndrome, unspecified (principal); I10 Essential (primary) hypertension

== ENCOUNTER → 2020-03-18 | Outpatient (CLI) | payer MEDICARE, OTHER | LOC: ZCOL.LAB 17:25 | DX: D46.9 Myelodysplastic syndrome, unspecified (principal); E03.9 Hypothyroidism, unspecified ==

== ENCOUNTER → 2020-03-18 | Outpatient (CLI) | payer MEDICARE, OTHER ==
[2020-03-18 19:33] LABS: BASO % 0.4 % (0.0-2.0); EOS # 0.8 (0.0-0.7); EOS % 15.3 % (0-4.0); GRAN # 3.1 (1.4-6.5); LYMPH # 0.8 (1.2-3.4); LYMPH % 15.7 % (20.0-51.0); MEAN CELL VOLUME 92 fl (80.0-100.0); MEAN CORPUSCULAR HGB CONC 31 g/dl (33.0-37.0); MONO # 0.5 (0.1-0.6); MONO % 8.8 % (1.7-9.3); PLATELET COUNT 311 K/mm3 (130-400); RED BLOOD COUNT 2.47 M/mm3 (4.20-5.60); REDCELL DISTRIBUTION WIDTH-CV 15.6 % (11.5-14.5)
[2020-03-18 19:36] LABS: HEMATOCRIT 22.7 % (42.0-52.0); HEMOGLOBIN 7.1 g/dl (13.5-18.0); MEAN CORPUSCULAR HEMOGLOBIN 29 pg (27.0-31.0)
== END ==
LOC: ZCOL.LAB 17:43
PROVIDERS: Internal Medicine
DX: D46.9 Myelodysplastic syndrome, unspecified (principal); E03.9 Hypothyroidism, unspecified

== ENCOUNTER → 2020-03-24 | Outpatient (CLI) | payer MEDICARE, OTHER ==
[2020-03-24 13:10] LABS: BASO % 0.3 % (0.0-2.0); EOS # 0.4 (0.0-0.7); EOS % 4.1 % (0-4.0); GRAN # 7.9 (1.4-6.5); GRAN % 82.6 % (42.2-75.2); LYMPH # 0.6 (1.2-3.4); LYMPH % 5.8 % (20.0-51.0); MEAN CELL VOLUME 91 fl (80.0-100.0); MEAN CORPUSCULAR HGB CONC 33 g/dl (33.0-37.0); MEAN PLATELET VOLUME 10.1 fl (7.4-10.4); MONO # 0.6 (0.1-0.6); MONO % 6.4 % (1.7-9.3); PLATELET COUNT 293 K/mm3 (130-400); RED BLOOD COUNT 1.91 M/mm3 (4.20-5.60)
[2020-03-24 13:14] LABS: HEMATOCRIT 17.3 % (42.0-52.0); HEMOGLOBIN 5.7 g/dl (13.5-18.0); MEAN CORPUSCULAR HEMOGLOBIN 30 pg (27.0-31.0)
== END ==
LOC: ZLAB.STJ 13:00
PROVIDERS: Internal Medicine
DX: D46.1 Refractory anemia with ring sideroblasts (principal)

== ENCOUNTER 2020-03-25 13:00 | Outpatient (RCR) | payer MEDICARE, OTHER ==
[2020-03-25] VITALS (9 sets, daily range): BP systolic 74–97; BP diastolic 44–60; PULSE 72–85; TEMP 97.8–99.1
--- NOTE | 2020-03-25 18:01 | NUR ---
INT removed,catheter tip intact.Pt escorted out via wheelchair to SNF staff.
== END 2020-03-25 18:01 | disposition home or self-care (01) ==
LOC: EUO 13:00
DX: D46.1 Refractory anemia with ring sideroblasts (principal)
CPT/HCPCS: J7050; P9040

== ENCOUNTER → 2020-03-31 | Outpatient (CLI) | payer MEDICARE, OTHER ==
[2020-03-31 10:41] LABS: BASO % 0.5 % (0.0-2.0); EOS # 0.5 (0.0-0.7); EOS % 12.5 % (0-4.0); GRAN # 2.7 (1.4-6.5); GRAN % 61.7 % (42.2-75.2); LYMPH # 0.8 (1.2-3.4); LYMPH % 17.4 % (20.0-51.0); MEAN CELL VOLUME 92 fl (80.0-100.0); MEAN CORPUSCULAR HGB CONC 33 g/dl (33.0-37.0); MEAN PLATELET VOLUME 10.2 fl (7.4-10.4); MONO # 0.3 (0.1-0.6); MONO % 6.7 % (1.7-9.3); PLATELET COUNT 274 K/mm3 (130-400); REDCELL DISTRIBUTION WIDTH-CV 15.7 % (11.5-14.5)
[2020-03-31 10:57] LABS: HEMATOCRIT 21.2 % (42.0-52.0); HEMOGLOBIN 6.9 g/dl (13.5-18.0); MEAN CORPUSCULAR HEMOGLOBIN 30 pg (27.0-31.0)
== END ==
LOC: ZLAB.STJ 10:09
PROVIDERS: Family Medicine
DX: R68.89 Other general symptoms and signs (principal)

== ENCOUNTER 2020-04-01 13:00 | Outpatient (RCR) | payer MEDICARE, OTHER ==
[2020-04-01] VITALS (9 sets, daily range): BP systolic 102–160; BP diastolic 61–91; PULSE 69–75; TEMP 98.2–98.9
== END 2020-04-01 19:36 | disposition home or self-care (01) ==
LOC: EUO 13:00
DX: D46.1 Refractory anemia with ring sideroblasts (principal)
CPT/HCPCS: J7050; P9040

== ENCOUNTER → 2020-04-08 | Outpatient (CLI) | payer MEDICARE, OTHER ==
[2020-04-08 13:50] LABS: BASO % 0.4 % (0.0-2.0); EOS # 0.7 (0.0-0.7); EOS % 12.7 % (0-4.0); GRAN # 3.3 (1.4-6.5); GRAN % 62.3 % (42.2-75.2); LYMPH # 0.9 (1.2-3.4); LYMPH % 15.9 % (20.0-51.0); MEAN CELL VOLUME 92 fl (80.0-100.0); MEAN CORPUSCULAR HGB CONC 33 g/dl (33.0-37.0); MEAN PLATELET VOLUME 10.2 fl (7.4-10.4); MONO # 0.4 (0.1-0.6); PLATELET COUNT 272 K/mm3 (130-400); RED BLOOD COUNT 2.58 M/mm3 (4.20-5.60); REDCELL DISTRIBUTION WIDTH-CV 15.1 % (11.5-14.5)
[2020-04-08 13:55] LABS: HEMATOCRIT 23.6 % (42.0-52.0); HEMOGLOBIN 7.8 g/dl (13.5-18.0); MEAN CORPUSCULAR HEMOGLOBIN 30 pg (27.0-31.0)
== END ==
LOC: ZLAB.STJ 13:35
PROVIDERS: Internal Medicine
DX: D46.9 Myelodysplastic syndrome, unspecified (principal)

== ENCOUNTER → 2020-04-09 | Outpatient (CLI) | payer MEDICARE, OTHER ==
[2020-04-09 17:49] LABS: ALBUMIN 3.3 gm/dL (3.5-5.0); BILIRUBIN,TOTAL 0.7 mg/dL (0.0-1.0); CALCIUM 8.3 mg/dL (8.4-10.2); CREATININE, serum 1.26 (0.66-1.25); POTASSIUM 4.5 mmol/L (3.4-5.0); TOTAL PROTEIN 5.6 gm/dL (6.4-8.2)
== END ==
LOC: ZLAB.STJ 15:31
PROVIDERS: Internal Medicine
DX: D46.9 Myelodysplastic syndrome, unspecified (principal)

== ENCOUNTER → 2020-04-15 | Outpatient (CLI) | payer MEDICARE, OTHER ==
[2020-04-15 14:41] LABS: MEAN CELL VOLUME 93 fl (80.0-100.0); MEAN CORPUSCULAR HGB CONC 33 g/dl (33.0-37.0); MEAN PLATELET VOLUME 10.4 fl (7.4-10.4); PLATELET COUNT 267 K/mm3 (130-400); RED BLOOD COUNT 2.18 M/mm3 (4.20-5.60); REDCELL DISTRIBUTION WIDTH-CV 15.2 % (11.5-14.5)
[2020-04-15 14:46] LABS: HEMATOCRIT 20.3 % (42.0-52.0); HEMOGLOBIN 6.6 g/dl (13.5-18.0); MEAN CORPUSCULAR HEMOGLOBIN 30 pg (27.0-31.0)
== END ==
LOC: ZCOL.LAB 13:17
PROVIDERS: Internal Medicine
DX: D46.9 Myelodysplastic syndrome, unspecified (principal)

== ENCOUNTER 2020-04-16 13:00 | Outpatient (RCR) | payer MEDICARE, OTHER ==
[2020-04-16] VITALS (11 sets, daily range): BP systolic 94–158; BP diastolic 50–67; PULSE 72–83; TEMP 97.8–99
[2020-04-16] MEDS ORDERED: PREPH RC (14:04)
== END 2020-04-16 18:18 | disposition home or self-care (01) ==
LOC: EUO 13:00
DX: D46.1 Refractory anemia with ring sideroblasts (principal)
CPT/HCPCS: J7050; P9040

== ENCOUNTER → 2020-04-22 | Outpatient (CLI) | payer MEDICARE, OTHER ==
[2020-04-22 21:18] LABS: BASO % 0.3 % (0.0-2.0); EOS # 0.6 (0.0-0.7); EOS % 16.3 % (0-4.0); GRAN % 53.5 % (42.2-75.2); LYMPH # 0.7 (1.2-3.4); LYMPH % 18.5 % (20.0-51.0); MEAN CELL VOLUME 93 fl (80.0-100.0); MEAN CORPUSCULAR HGB CONC 32 g/dl (33.0-37.0); MEAN PLATELET VOLUME 10.3 fl (7.4-10.4); MONO # 0.4 (0.1-0.6); MONO % 10.9 % (1.7-9.3); PLATELET COUNT 230 K/mm3 (130-400); RED BLOOD COUNT 2.52 M/mm3 (4.20-5.60); REDCELL DISTRIBUTION WIDTH-CV 15.2 % (11.5-14.5)
[2020-04-22 21:20] LABS: HEMATOCRIT 23.4 % (42.0-52.0); HEMOGLOBIN 7.4 g/dl (13.5-18.0); MEAN CORPUSCULAR HEMOGLOBIN 29 pg (27.0-31.0)
== END ==
LOC: ZLAB.STJ 21:13
PROVIDERS: Internal Medicine
DX: D46.9 Myelodysplastic syndrome, unspecified (principal)

== ENCOUNTER → 2020-04-29 | Outpatient (CLI) | payer MEDICARE, OTHER ==
[2020-04-29 12:23] LABS: BASO % 0.5 % (0.0-2.0); EOS # 0.6 (0.0-0.7); EOS % 16.1 % (0-4.0); GRAN # 2.2 (1.4-6.5); GRAN % 54.4 % (42.2-75.2); LYMPH # 0.7 (1.2-3.4); LYMPH % 17.9 % (20.0-51.0); MEAN CELL VOLUME 91 fl (80.0-100.0); MEAN CORPUSCULAR HGB CONC 32 g/dl (33.0-37.0); MONO # 0.4 (0.1-0.6); MONO % 9.8 % (1.7-9.3); PLATELET COUNT 278 K/mm3 (130-400); RED BLOOD COUNT 2.18 M/mm3 (4.20-5.60)
[2020-04-29 12:30] LABS: ALBUMIN 3.1 gm/dL (3.5-5.0); BILIRUBIN,TOTAL 0.6 mg/dL (0.0-1.0); CALCIUM 8.4 mg/dL (8.4-10.2); CREATININE, serum 1.21 (0.66-1.25); POTASSIUM 3.9 mmol/L (3.4-5.0); TOTAL PROTEIN 5.2 gm/dL (6.4-8.2)
[2020-04-29 12:40] LABS: HEMATOCRIT 19.9 % (42.0-52.0); MEAN CORPUSCULAR HEMOGLOBIN 29 pg (27.0-31.0)
[2020-04-29 12:43] LABS: HEMOGLOBIN 6.4 g/dl (13.5-18.0)
== END ==
LOC: ZLAB.STJ 11:34
PROVIDERS: Internal Medicine
DX: D46.9 Myelodysplastic syndrome, unspecified (principal)

== ENCOUNTER 2020-04-30 13:00 | Outpatient (RCR) | payer MEDICARE, OTHER ==
[2020-04-30] VITALS (10 sets, daily range): BP systolic 61–83; BP diastolic 44–54; PULSE 69–77; TEMP 98.1–98.8
[~2020-04-30] VITALS: Ht 177.8 cm; Wt 81.2 kg
--- NOTE | 2020-04-30 14:38 | NUR ---
pT BP UPON ARRIVAL WAS OBSERVED AT 62/45 WITH PULSE OF 105.pT OBSERVEDE WITH RESPIRATIONS EVEN AND UNLABORED.NO COMPLAINTS REPORTS FROM PT.DR TORRES NOTIFIED.CONTINUE WITH TRANSFUION PREVIOUSLY ORDERED.
--- NOTE | 2020-04-30 18:59 | NUR ---
Pt escorted out via wheelchair to care of snf staff.
== END 2020-04-30 19:00 | disposition home or self-care (01) ==
LOC: EUO 13:00
DX: D46.1 Refractory anemia with ring sideroblasts (principal)
CPT/HCPCS: J7050; P9040

== ENCOUNTER → 2020-05-06 | Outpatient (CLI) | payer MEDICARE, OTHER ==
[2020-05-06 16:06] LABS: BASO % 0.2 % (0.0-2.0); EOS # 0.8 (0.0-0.7); EOS % 16.2 % (0-4.0); GRAN # 2.9 (1.4-6.5); GRAN % 60.6 % (42.2-75.2); LYMPH # 0.6 (1.2-3.4); MEAN CELL VOLUME 92 fl (80.0-100.0); MEAN CORPUSCULAR HGB CONC 33 g/dl (33.0-37.0); MEAN PLATELET VOLUME 10.5 fl (7.4-10.4); MONO # 0.4 (0.1-0.6); MONO % 9.4 % (1.7-9.3); PLATELET COUNT 193 K/mm3 (130-400); RED BLOOD COUNT 2.48 M/mm3 (4.20-5.60); REDCELL DISTRIBUTION WIDTH-CV 15.4 % (11.5-14.5)
[2020-05-06 16:11] LABS: HEMATOCRIT 22.9 % (42.0-52.0); HEMOGLOBIN 7.5 g/dl (13.5-18.0); MEAN CORPUSCULAR HEMOGLOBIN 30 pg (27.0-31.0)
[2020-05-06 16:22] LABS: ALBUMIN 3.3 gm/dL (3.5-5.0); BILIRUBIN,TOTAL 0.8 mg/dL (0.0-1.0); CALCIUM 8.6 mg/dL (8.4-10.2); CREATININE, serum 1.29 (0.66-1.25); POTASSIUM 4.5 mmol/L (3.4-5.0); TOTAL PROTEIN 5.6 gm/dL (6.4-8.2)
== END ==
LOC: ZLAB.STJ 15:08
PROVIDERS: Internal Medicine
DX: D46.9 Myelodysplastic syndrome, unspecified (principal)

== ENCOUNTER 2020-05-19 12:44 | Outpatient (RCR) | payer MEDICARE, OTHER ==
[2020-05-19] VITALS (10 sets, daily range): BP systolic 98–123; BP diastolic 49–70; PULSE 62–86; TEMP 98.5–98.6
[~2020-05-19] VITALS: Ht 177.8 cm; Wt 74.6 kg
[~2020-05-19 12:44] MED LIST changes: +LIPITOR 40MG TA40 MG PO
== END 2020-05-19 19:01 ==
LOC: EUO 12:44
DX: D46.1 Refractory anemia with ring sideroblasts (principal)
CPT/HCPCS: J7050; P9040

== ENCOUNTER → 2020-05-24 | Outpatient (CLI) | payer MEDICARE, OTHER ==
[2020-05-24 12:35] LABS: CALCIUM 8.4 mg/dL (8.4-10.2); CREATININE, serum 1.17 (0.66-1.25); POTASSIUM 4.4 mmol/L (3.4-5.0)
== END ==
LOC: ZLAB.STJ 11:19
PROVIDERS: Family Medicine
DX: R79.89 Other specified abnormal findings of blood chemistry (principal)

== ENCOUNTER → 2020-06-04 | Outpatient (CLI) | payer MEDICARE, OTHER ==
[2020-06-04 16:28] LABS: BASO % 0.3 % (0.0-2.0); EOS # 0.7 (0.0-0.7); EOS % 11.3 % (0-4.0); GRAN # 3.8 (1.4-6.5); GRAN % 62.5 % (42.2-75.2); LYMPH # 0.9 (1.2-3.4); LYMPH % 14.5 % (20.0-51.0); MEAN CELL VOLUME 88 fl (80.0-100.0); MEAN CORPUSCULAR HGB CONC 33 g/dl (33.0-37.0); MEAN PLATELET VOLUME 10.6 fl (7.4-10.4); MONO # 0.6 (0.1-0.6); MONO % 9.8 % (1.7-9.3); PLATELET COUNT 238 K/mm3 (130-400); RED BLOOD COUNT 2.29 M/mm3 (4.20-5.60); REDCELL DISTRIBUTION WIDTH-CV 15.6 % (11.5-14.5)
[2020-06-04 16:55] LABS: HEMATOCRIT 20.2 % (42.0-52.0); HEMOGLOBIN 6.7 g/dl (13.5-18.0); MEAN CORPUSCULAR HEMOGLOBIN 29 pg (27.0-31.0)
== END ==
LOC: ZLAB.STJ 16:17
PROVIDERS: Family Medicine
DX: R68.89 Other general symptoms and signs (principal)

== ENCOUNTER 2020-06-08 13:30 | Outpatient (RCR) | payer MEDICARE, OTHER ==
[~2020-06-08] VITALS: Ht 177.8 cm; Wt 61.5 kg
[2020-06-08] VITALS (10 sets, daily range): BP systolic 98–152; BP diastolic 50–70; PULSE 62–72; TEMP 97.3–97.5
== END 2020-06-08 18:15 ==
LOC: EUO 13:30
DX: D46.1 Refractory anemia with ring sideroblasts (principal)
CPT/HCPCS: J7050; P9040

== ENCOUNTER → 2020-06-16 | Outpatient (CLI) | payer MEDICARE, OTHER ==
[2020-06-16 11:35] LABS: MEAN CELL VOLUME 87 fl (80.0-100.0); MEAN CORPUSCULAR HGB CONC 33 g/dl (33.0-37.0); MEAN PLATELET VOLUME 10.6 fl (7.4-10.4); PLATELET COUNT 199 K/mm3 (130-400); RED BLOOD COUNT 2.35 M/mm3 (4.20-5.60); REDCELL DISTRIBUTION WIDTH-CV 15.6 % (11.5-14.5)
[2020-06-16 11:44] LABS: HEMATOCRIT 20.5 % (42.0-52.0); HEMOGLOBIN 6.8 g/dl (13.5-18.0); MEAN CORPUSCULAR HEMOGLOBIN 29 pg (27.0-31.0)
[2020-06-16 12:05] LABS: BAND 4 % (0-10); EOSINOPHIL 11 % (0-4); LYMPHOCYTE 12 % (20.0-51.0); NEUTROPHILS 67 % (42.0-75.2)
[2020-06-16 12:06] LABS: OVALOCYTES 1+; PLATELET ESTIMATE NORMAL (NORMAL)
[2020-06-16 12:07] LABS: HYPOCHROMIA 1+
== END ==
LOC: ZLAB.STJ 10:46
PROVIDERS: Nurse Practitioner
DX: D46.1 Refractory anemia with ring sideroblasts (principal)

== ENCOUNTER 2020-06-17 13:00 | Outpatient (RCR) | payer MEDICARE, OTHER ==
[~2020-06-17] VITALS: Ht 177.8 cm; Wt 82.5 kg
[2020-06-17] VITALS (9 sets, daily range): BP systolic 78–117; BP diastolic 37–96; PULSE 64–73; TEMP 97.4–98.3
--- NOTE | 2020-06-17 14:54 | NUR ---
Pt continues to tolerate transfusion well. He has been sleeping. Now awake and eating meal tray. He denies complaints or needs.
--- NOTE | 2020-06-17 16:59 | NUR ---
Pt continues to rest comfortably in bed. Wakes easily when staff enters room. Denies need to get up to commode, or other needs at this time. Call light in reach. Report given to DARIEL Shabazz so she may continue to monitor pt.
== END 2020-06-17 19:26 ==
LOC: EUO 13:00
DX: D46.1 Refractory anemia with ring sideroblasts (principal)
CPT/HCPCS: J7050; P9040

== ENCOUNTER → 2020-06-24 | Outpatient (CLI) | payer MEDICARE, OTHER ==
[2020-06-24 14:02] LABS: BASO % 0.4 % (0.0-2.0); EOS % 21.6 % (0-4.0); GRAN # 2.3 (1.4-6.5); GRAN % 51.7 % (42.2-75.2); LYMPH # 0.8 (1.2-3.4); LYMPH % 17.1 % (20.0-51.0); MEAN CELL VOLUME 87 fl (80.0-100.0); MEAN CORPUSCULAR HGB CONC 33 g/dl (33.0-37.0); MEAN PLATELET VOLUME 10.3 fl (7.4-10.4); MONO # 0.4 (0.1-0.6); MONO % 8.1 % (1.7-9.3); PLATELET COUNT 202 K/mm3 (130-400); RED BLOOD COUNT 2.79 M/mm3 (4.20-5.60)
[2020-06-24 14:06] LABS: HEMATOCRIT 24.3 % (42.0-52.0); HEMOGLOBIN 8.1 g/dl (13.5-18.0); MEAN CORPUSCULAR HEMOGLOBIN 29 pg (27.0-31.0)
== END ==
LOC: ZLAB.STJ 13:41
PROVIDERS: Internal Medicine
DX: R79.89 Other specified abnormal findings of blood chemistry (principal); R68.89 Other general symptoms and signs

== ENCOUNTER → 2020-06-25 | Outpatient (REF) ==
[~2020-06-25] MED LIST changes: +K-TAB10 PO
[2020-06-25 10:17] LABS: ALBUMIN 3.2 gm/dL (3.5-5.0); CALCIUM 8.2 mg/dL (8.4-10.2); CREATININE, serum 1.23 (0.66-1.25); POTASSIUM 3.1 mmol/L (3.4-5.0); TOTAL PROTEIN 5.6 gm/dL (6.4-8.2)
== END ==
LOC: ZLAB.STJ 10:02
PROVIDERS: Family Medicine
DX: Z01.89 Encounter for other specified special examinations (principal)

== ENCOUNTER → 2020-07-02 | Outpatient (CLI) | payer MEDICARE, OTHER ==
[2020-07-02 16:15] LABS: MEAN CELL VOLUME 88 fl (80.0-100.0); MEAN CORPUSCULAR HGB CONC 33 g/dl (33.0-37.0); MEAN PLATELET VOLUME 10.7 fl (7.4-10.4); PLATELET COUNT 224 K/mm3 (130-400); RED BLOOD COUNT 2.23 M/mm3 (4.20-5.60); REDCELL DISTRIBUTION WIDTH-CV 15.3 % (11.5-14.5)
[2020-07-02 16:23] LABS: HEMATOCRIT 19.7 % (42.0-52.0); HEMOGLOBIN 6.4 g/dl (13.5-18.0); MEAN CORPUSCULAR HEMOGLOBIN 29 pg (27.0-31.0)
[2020-07-02 17:51] LABS: BAND 1 % (0-10); EOSINOPHIL 29 % (0-4); LYMPHOCYTE 42 % (20.0-51.0); NEUTROPHILS 24 % (42.0-75.2); NUCLEATED RED BLOOD CELL 1 (0-6)
[2020-07-02 17:52] LABS: ANISOCYTOSIS 1+; HYPOCHROMIA 1+
[2020-07-02 17:54] LABS: PLATELET ESTIMATE NORMAL (NORMAL)
[2020-07-02 17:55] LABS: OVALOCYTES 1+; SCHISTOCYTES 2+
[2020-07-03 10:17] LABS: PATHOLOGY DIFF REVIEW OK
== END ==
LOC: ZLAB.STJ 15:16
PROVIDERS: Internal Medicine
DX: D46.9 Myelodysplastic syndrome, unspecified (principal)

== ENCOUNTER 2020-07-04 08:00 | Outpatient (RCR) | payer MEDICARE, OTHER ==
[~2020-07-04] VITALS: Ht 177.8 cm; Wt 84.9 kg
[2020-07-04] VITALS (9 sets, daily range): BP systolic 98–168; BP diastolic 44–84; PULSE 74–78; TEMP 97.8–99.4
[~2020-07-04 08:00] MED LIST changes: -K-TAB10 PO
[2020-07-04] MEDS ORDERED: K-TAB10 PO (09:54)
--- NOTE | 2020-07-04 10:14 | NUR ---
Pt is tolerating transfusion well, he is sitting up in bed at this time, eating cheerios. pt able to handle spoon without difficulty.
== END 2020-07-04 14:14 ==
LOC: EUO 08:00
DX: D46.1 Refractory anemia with ring sideroblasts (principal)
CPT/HCPCS: J7050; P9040

== ENCOUNTER → 2020-07-08 | Outpatient (CLI) | payer MEDICARE, OTHER ==
[~2020-07-08] MED LIST changes: +K-TAB10 PO
[2020-07-08 12:47] LABS: BASO % 0.4 % (0.0-2.0); EOS % 21.2 % (0-4.0); GRAN # 2.5 (1.4-6.5); GRAN % 53.6 % (42.2-75.2); LYMPH # 0.7 (1.2-3.4); LYMPH % 15.2 % (20.0-51.0); MEAN CELL VOLUME 88 fl (80.0-100.0); MEAN CORPUSCULAR HGB CONC 33 g/dl (33.0-37.0); MEAN PLATELET VOLUME 11.1 fl (7.4-10.4); MONO # 0.4 (0.1-0.6); MONO % 8.5 % (1.7-9.3); PLATELET COUNT 150 K/mm3 (130-400); RED BLOOD COUNT 2.56 M/mm3 (4.20-5.60); REDCELL DISTRIBUTION WIDTH-CV 15.2 % (11.5-14.5)
[2020-07-08 12:50] LABS: HEMATOCRIT 22.5 % (42.0-52.0); HEMOGLOBIN 7.4 g/dl (13.5-18.0); MEAN CORPUSCULAR HEMOGLOBIN 29 pg (27.0-31.0)
[2020-07-08 13:00] LABS: BILIRUBIN,TOTAL 0.9 mg/dL (0.0-1.0); CALCIUM 8.1 mg/dL (8.4-10.2); CREATININE, serum 1.06 (0.66-1.25); POTASSIUM 4.1 mmol/L (3.4-5.0); TOTAL PROTEIN 5.2 gm/dL (6.4-8.2)
== END ==
LOC: ZLAB.STJ 11:46
PROVIDERS: Internal Medicine
DX: N17.9 Acute kidney failure, unspecified (principal)

== ENCOUNTER → 2020-07-15 | Outpatient (CLI) | payer MEDICARE, OTHER ==
[2020-07-15 16:49] LABS: BASO % 0.3 % (0.0-2.0); EOS # 0.7 (0.0-0.7); GRAN # 1.9 (1.4-6.5); GRAN % 52.9 % (42.2-75.2); LYMPH # 0.5 (1.2-3.4); LYMPH % 13.9 % (20.0-51.0); MEAN CELL VOLUME 90 fl (80.0-100.0); MEAN CORPUSCULAR HGB CONC 32 g/dl (33.0-37.0); MEAN PLATELET VOLUME 10.3 fl (7.4-10.4); MONO # 0.5 (0.1-0.6); MONO % 12.8 % (1.7-9.3); PLATELET COUNT 218 K/mm3 (130-400); RED BLOOD COUNT 2.22 M/mm3 (4.20-5.60); REDCELL DISTRIBUTION WIDTH-CV 15.5 % (11.5-14.5)
[2020-07-15 16:59] LABS: HEMATOCRIT 19.9 % (42.0-52.0); HEMOGLOBIN 6.3 g/dl (13.5-18.0); MEAN CORPUSCULAR HEMOGLOBIN 28 pg (27.0-31.0)
== END ==
LOC: ZLAB.STJ 16:12
PROVIDERS: Internal Medicine
DX: D46.9 Myelodysplastic syndrome, unspecified (principal)

== ENCOUNTER 2020-07-17 08:05 | Outpatient (RCR) | payer MEDICARE, OTHER ==
--- NOTE | 2020-07-16 17:35 | NUR ---
Patient arrived to the floor around 1400. We got him into the bed to get him ready for the blood transfusion. Attempted several times to start an IV but was not successful. Dr Cali notified, order was placed for anesthesia to start one. Anesthesia was able to get an IV in the right AC. When flushing the IV to start IVF's for blood transfusion, the IV infiltrated. Notified Dr Cali, he wants patient to return to [facility], hydrate tonight and return in AM to try again. Notified [facility] of the plan. They verbalized understanding of the plan. Asked them to bring him early by 0800, so that if we have problems, we have more time to plan.
[2020-07-17] VITALS (9 sets, daily range): BP systolic 84–145; BP diastolic 42–75; PULSE 69–76; TEMP 97.6–98.6
[2020-07-17 16:36] LABS: HEMATOCRIT 24.7 % (42.0-52.0); HEMOGLOBIN 8.4 g/dl (13.5-18.0)
--- NOTE | 2020-07-17 16:52 | NUR ---
Patient doing well post transfusion. VSS. Denies needs at this time. IV to left wrist discontinued, catheter tip intact.
== END 2020-07-17 17:12 ==
LOC: EUO 08:05 → SURG 08:24 → EUO 17:12
PROVIDERS: Internal Medicine Medical Oncology
DX: D46.1 Refractory anemia with ring sideroblasts (principal)
CPT/HCPCS: OP; J7050; P9040

== ENCOUNTER → 2020-07-22 | Outpatient (CLI) | payer MEDICARE, OTHER ==
[2020-07-22 18:29] LABS: BASO % 0.5 % (0.0-2.0); EOS # 0.6 (0.0-0.7); EOS % 15.1 % (0-4.0); GRAN # 2.5 (1.4-6.5); LYMPH # 0.6 (1.2-3.4); LYMPH % 14.6 % (20.0-51.0); MEAN CELL VOLUME 91 fl (80.0-100.0); MEAN CORPUSCULAR HGB CONC 32 g/dl (33.0-37.0); MEAN PLATELET VOLUME 10.9 fl (7.4-10.4); MONO # 0.4 (0.1-0.6); MONO % 10.4 % (1.7-9.3); PLATELET COUNT 159 K/mm3 (130-400); RED BLOOD COUNT 2.41 M/mm3 (4.20-5.60)
[2020-07-22 18:33] LABS: ALBUMIN 2.7 gm/dL (3.5-5.0); BILIRUBIN,TOTAL 0.7 mg/dL (0.0-1.0); CALCIUM 7.6 mg/dL (8.4-10.2); CREATININE, serum 1.07 (0.66-1.25); POTASSIUM 3.8 mmol/L (3.4-5.0); TOTAL PROTEIN 4.9 gm/dL (6.4-8.2)
[2020-07-22 18:34] LABS: HEMATOCRIT 21.9 % (42.0-52.0); MEAN CORPUSCULAR HEMOGLOBIN 29 pg (27.0-31.0)
== END ==
LOC: ZLAB.STJ 13:55
PROVIDERS: Internal Medicine
DX: Z13.220 Encounter for screening for lipoid disorders (principal); R68.89 Other general symptoms and signs

== ENCOUNTER → 2020-07-25 11:00 | Outpatient (RCR) | payer MEDICARE, OTHER ==
--- NOTE | 2020-07-25 11:36 | NUR ---
Patient arrives by wheelchair to room for blood transfusions. Patient is alert and only oriented to self. Patient has IV to right forearm that was started yesterday when he was here. Site flushes without difficulty. Administer premedications as prescribed. Provided call light and oriented to room. Denies additional needs at this time.
--- NOTE | 2020-07-25 11:57 | NUR ---
Attempt to contact patient son, Gavino Day, no answer. Contact patient's sister in law Hollie Jackson and she says that she does not have power of transactional attorney to give consent for the patient to receive blood. Explain that I will try his son again and Hollie says that she will also try to get in contact with the patient's son to let him know. Message left for the patient's son, Gavino, to contact this nurse.
[2020-07-25 12:06] VITALS: BP 103/45; PULSE 67; TEMP 97.3
--- NOTE | 2020-07-25 12:13 | NUR ---
Receive call back from patient son, Gavino Day, and he says that he is DPOA and consents to blood transfusion. DARIEL Sadler, second witness to phone consent. Son asks why he is being contacted to get the consent. Explain that when I was checking his father's orientation status he was not able to tell me where he was and with a little confusion I needed consent from DPOA. Son verbalizes understanding and denies additional needs or concerns at this time.
--- NOTE | 2020-07-25 12:27 | NUR ---
Went to lab to obtain first unit of irradiated PRBCs. Obtained blood and brought back to floor. Lab had blood under patient's account from yesterday. Admissions explains that the patient blood products have to be entered under todays encounter. Unit of PRBCs taken back to the lab for refrigeration. Lab will contact this nurse when the product is available and under correct account.
--- NOTE | 2020-07-25 12:38 | NUR ---
Lab brings initial unit of PRBCs to this nurse at this time.
== END ==
LOC: EUO 11:00 → SURG 11:46 → EUO 13:30
DX: D46.1 Refractory anemia with ring sideroblasts (principal)
CPT/HCPCS: OP; J7050

== ENCOUNTER 2020-07-25 12:37 | Outpatient (RCR) | payer MEDICARE, OTHER ==
--- NOTE | 2020-07-24 15:20 | NUR ---
Patient arrived to floor at approximately 1500. Initiated IV to LF x4 attempts. PRBCs not available for transfusion at this time. Notified mainspring fabrication supervisor and contacted SNF for transport. Patient discharging with INT. Patient will be back tomorrow for transfusion, notified RN at [facility]. Denies further needs at this time. Patient out by wheelchair.
[~2020-07-25] VITALS: Ht 177.8 cm; Wt 82.5 kg
[2020-07-25] VITALS (8 sets, daily range): BP systolic 103–148; BP diastolic 42–80; PULSE 66–74; TEMP 97.3–98
--- NOTE | 2020-07-25 11:36 | NUR ---
Patient arrives to floor via wheel chair. Patient assisted into comfortable position in the bed. Patient is alert to only self, uncertain where he is at. Patient has IV to right forearm that was started yesterday when he was here. Site flushes without difficulty. Administer premedications as prescribed. Provided call light and oriented to room. Denies needs at this time.
--- NOTE | 2020-07-25 11:57 | NUR ---
Attempt to contact patient son, Wolf Day, to obtain consent, no answer. Contact the patient's sister in lay, Hollie Jackson, and she says that she does not have power of divorce attorney, she believes the patient's son does so she will also try to get in contact with his son. THis nurse leaves message for Wolf Day to contact this nurse.
--- NOTE | 2020-07-25 12:13 | NUR ---
Receive call back from Gavino Day and he confirms that he is DPOA and is able to provide consent for the blood transfusions. Son asks why he is having to be the one to give consent and I explain that his father is not able to tell me where he is at and we like to make sure that an informed decision is being made and not in a state of confusion. Son verbalizes understanding. Son provides consent to this nurse and DARIEL Sadler. Consent completed and placed with chart. Son denies additional questions or concerns.
--- NOTE | 2020-07-25 12:27 | NUR ---
Obtain first unit of irradiated PRBCs from lab. When to the floor, there was an account issue in the system. Lab and admissions contacted and admissions says that the lab needs to place all blood information into account from today. Blood taken back to the lab for refrigeration. Blood bank will contact this nurse when product is ready.
--- NOTE | 2020-07-25 12:55 | NUR ---
First unit of irradiated PRBCs started at 60mL/hr. Patient sitting up in bed.
--- NOTE | 2020-07-25 13:12 | NUR ---
Patient tolerates initial 15 minutes of blood transfusion without difficulty. Rate increased to 150mL/hr. Patient sitting up in bed eating lunch at this time. Denies concerns or needs.
--- NOTE | 2020-07-25 15:27 | NUR ---
First transfusion complete. Patient says that he is feeling good. Vital signs are stable. Denies needs at this time.
--- NOTE | 2020-07-25 15:38 | NUR ---
Second unit of blood started at 60mL/hr, verified by this nurse and Jenny, charge nurse. Patient resting in bed.
--- NOTE | 2020-07-25 15:53 | NUR ---
Patient tolerates initial 15 minutes of second infusion without difficulty. Rate increased to 150mL/hr. Patient offered bathroom or urinal or to have brief checked and he declines. Denies additional needs.
--- NOTE | 2020-07-25 16:45 | NUR ---
Patient incontinent of stool and urine. Cleaned at this time. Patient repositioned in bed. Blood continues to infuse at 150mL/hr without any difficulty. Patient says that he is feeling okay at this time and denies additional needs.
--- NOTE | 2020-07-25 17:57 | NUR ---
Second transfusion completed without any complications. Patient says that he is feeling good. [facility] notified that patient was completed with transfusions and ready for nut picker. They will send someone to pick patient up. IV to right forearm discontinued at this time. Catheter intact. Applied 2x2's to site and reinforced with coban.
--- NOTE | 2020-07-25 18:13 | NUR ---
Patient incontinent of urine and stool. Patient cleaned. New brief applied. Assist patient in getting dressed and into wheel chair. Dinner tray here and provided to the patient. Denies needs.
--- NOTE | 2020-07-25 18:34 | NUR ---
[facility] here to pick patient up. Patient assisted out to vehicle via wheelchair.
== END 2020-07-25 18:34 ==
LOC: JCC 12:37 → EUO 12:37 → SURG 12:38 → EUO 18:34
DX: D46.1 Refractory anemia with ring sideroblasts (principal)
CPT/HCPCS: OP; P9040

== ENCOUNTER → 2020-07-29 | Outpatient (REF) ==
[2020-07-29 13:07] LABS: MEAN CELL VOLUME 87 fl (80.0-100.0); MEAN CORPUSCULAR HGB CONC 33 g/dl (33.0-37.0); MEAN PLATELET VOLUME 10.6 fl (7.4-10.4); PLATELET COUNT 161 K/mm3 (130-400); RED BLOOD COUNT 2.81 M/mm3 (4.20-5.60); REDCELL DISTRIBUTION WIDTH-CV 15.4 % (11.5-14.5)
[2020-07-29 13:08] LABS: ALBUMIN 2.8 gm/dL (3.5-5.0); CALCIUM 8.1 mg/dL (8.4-10.2); CREATININE, serum 1.08 (0.66-1.25); POTASSIUM 3.9 mmol/L (3.4-5.0); TOTAL PROTEIN 5.1 gm/dL (6.4-8.2)
[2020-07-29 13:34] LABS: HEMATOCRIT 24.5 % (42.0-52.0); MEAN CORPUSCULAR HEMOGLOBIN 28 pg (27.0-31.0)
[2020-07-29 14:19] LABS: BAND 18 % (0-10); EOSINOPHIL 19 % (0-4); LYMPHOCYTE 16 % (20.0-51.0); NEUTROPHILS 33 % (42.0-75.2); NUCLEATED RED BLOOD CELL 2 (0-6); PLATELET ESTIMATE NORMAL (NORMAL)
[2020-07-29 14:20] LABS: HYPOCHROMIA 1+
== END ==
LOC: ZLAB.STJ 05:37
PROVIDERS: Internal Medicine
DX: D46.9 Myelodysplastic syndrome, unspecified (principal); I65.23 Occlusion and stenosis of bilateral carotid arteries

== ENCOUNTER 2020-08-08 07:59 | Outpatient (RCR) | payer MEDICARE, OTHER ==
[2020-08-06 10:33] VITALS: BP 96/44; PULSE 87; TEMP 97.7
[2020-08-06 10:51] LABS: MEAN CELL VOLUME 90 fl (80.0-100.0); MEAN CORPUSCULAR HGB CONC 32 g/dl (33.0-37.0); MEAN PLATELET VOLUME 10.2 fl (7.4-10.4); PLATELET COUNT 171 K/mm3 (130-400); RED BLOOD COUNT 2.23 M/mm3 (4.20-5.60); REDCELL DISTRIBUTION WIDTH-CV 15.5 % (11.5-14.5)
[2020-08-06 10:56] LABS: HEMOGLOBIN 6.4 g/dl (13.5-18.0); MEAN CORPUSCULAR HEMOGLOBIN 29 pg (27.0-31.0)
[2020-08-06 10:57] LABS: ALBUMIN 2.8 gm/dL (3.5-5.0); BILIRUBIN,TOTAL 0.8 mg/dL (0.0-1.0); CALCIUM 7.9 mg/dL (8.4-10.2); CREATININE, serum 1.18 (0.66-1.25); POTASSIUM 3.8 mmol/L (3.4-5.0); TOTAL PROTEIN 4.9 gm/dL (6.4-8.2)
[2020-08-06 11:51] LABS: BAND 19 % (0-10); EOSINOPHIL 2 % (0-4); LYMPHOCYTE 6 % (20.0-51.0); NEUTROPHILS 68 % (42.0-75.2); NUCLEATED RED BLOOD CELL 1 (0-6)
[2020-08-06 11:52] LABS: PLATELET ESTIMATE NORMAL (NORMAL)
[2020-08-06 11:53] LABS: ANISOCYTOSIS 2+; MICROCYTOSIS 1+
[2020-08-06 11:54] LABS: HYPOCHROMIA 1+
[2020-08-06 11:55] LABS: OVALOCYTES 1+
[2020-08-06 11:57] LABS: SCHISTOCYTES 1+; TARGET CELLS 1+
[~2020-08-08] VITALS: Ht 177.8 cm; Wt 79.6 kg
[2020-08-08] VITALS (11 sets, daily range): BP systolic 102–115; BP diastolic 48–56; PULSE 66–72; TEMP 97.5–98
== END 2020-08-17 16:44 | disposition home or self-care (01) ==
LOC: EUO 07:59
PROVIDERS: Internal Medicine
DX: D46.1 Refractory anemia with ring sideroblasts (principal)
CPT/HCPCS: C1751; J7050; P9040

== ENCOUNTER → 2020-08-10 | Outpatient (CLI) | payer MEDICARE, OTHER ==
[2020-08-10 12:35] LABS: BASO % 0.2 % (0.0-2.0); EOS # 0.9 (0.0-0.7); EOS % 19.5 % (0-4.0); GRAN # 2.6 (1.4-6.5); GRAN % 55.8 % (42.2-75.2); LYMPH # 0.7 (1.2-3.4); LYMPH % 14.3 % (20.0-51.0); MEAN CELL VOLUME 87 fl (80.0-100.0); MEAN CORPUSCULAR HGB CONC 33 g/dl (33.0-37.0); MEAN PLATELET VOLUME 10.3 fl (7.4-10.4); MONO # 0.4 (0.1-0.6); MONO % 9.1 % (1.7-9.3); PLATELET COUNT 127 K/mm3 (130-400); RED BLOOD COUNT 3.05 M/mm3 (4.20-5.60); REDCELL DISTRIBUTION WIDTH-CV 15.8 % (11.5-14.5)
[2020-08-10 12:36] LABS: HEMATOCRIT 26.4 % (42.0-52.0); HEMOGLOBIN 8.7 g/dl (13.5-18.0); MEAN CORPUSCULAR HEMOGLOBIN 29 pg (27.0-31.0)
== END ==
LOC: ZLAB.STJ 12:24
PROVIDERS: Internal Medicine
DX: D46.1 Refractory anemia with ring sideroblasts (principal)

== ENCOUNTER → 2020-08-17 | Outpatient (CLI) | payer MEDICARE, OTHER ==
[2020-08-17 14:24] LABS: BASO % 0.3 % (0.0-2.0); EOS # 1.3 (0.0-0.7); EOS % 21.5 % (0-4.0); GRAN # 3.4 (1.4-6.5); GRAN % 55.9 % (42.2-75.2); LYMPH # 0.8 (1.2-3.4); LYMPH % 12.9 % (20.0-51.0); MEAN CELL VOLUME 90 fl (80.0-100.0); MEAN CORPUSCULAR HGB CONC 33 g/dl (33.0-37.0); MEAN PLATELET VOLUME 10.9 fl (7.4-10.4); MONO # 0.5 (0.1-0.6); MONO % 8.4 % (1.7-9.3); PLATELET COUNT 154 K/mm3 (130-400); RED BLOOD COUNT 2.47 M/mm3 (4.20-5.60); REDCELL DISTRIBUTION WIDTH-CV 15.9 % (11.5-14.5)
[2020-08-17 14:28] LABS: HEMATOCRIT 22.3 % (42.0-52.0); HEMOGLOBIN 7.3 g/dl (13.5-18.0); MEAN CORPUSCULAR HEMOGLOBIN 30 pg (27.0-31.0)
== END ==
LOC: ZLAB.STJ 13:34
PROVIDERS: Internal Medicine
DX: D46.9 Myelodysplastic syndrome, unspecified (principal)

== ENCOUNTER 2020-08-19 13:08 | Outpatient (RCR) | payer MEDICARE, OTHER ==
[2020-08-19] VITALS (10 sets, daily range): BP systolic 111–143; BP diastolic 47–74; PULSE 63–71; TEMP 97.5–97.8
[~2020-08-19] VITALS: Ht 177.8 cm; Wt 81.0 kg
--- NOTE | 2020-08-19 19:34 | NUR ---
pt tolerated infusions well without any adverse or allergic reactions. Pt was able to eat part of a hamburger and fries with 12 oz sprite and tea/water also. per care provided twice during pt's stay. no open skin breakdown observed. pt does have a blanchable nickel sized area that was firm like a scar to rt ischial tuberosity area on left buttock. It appeared to be a healed ulcer. PICC flushed with 20 cc ns after infusion. wrapped with hazel wrap. there is some swelling to rt arm distal to picc, so care was taken not to wrap picc too tight. pt denied any pain to arm. Pt assisted to wheelchair using a sit to stand chair which worked very well for patient. pt to exit, [facility] transporter waiting for him.
== END 2020-08-19 19:39 ==
LOC: EUO 13:08
DX: D46.9 Myelodysplastic syndrome, unspecified (principal)
CPT/HCPCS: J7050; P9040

== ENCOUNTER → 2020-08-24 | Outpatient (CLI) | payer MEDICARE, OTHER ==
[2020-08-24 12:22] LABS: BASO % 0.4 % (0.0-2.0); EOS # 1.1 (0.0-0.7); EOS % 21.4 % (0-4.0); GRAN # 2.7 (1.4-6.5); GRAN % 54.4 % (42.2-75.2); LYMPH # 0.7 (1.2-3.4); LYMPH % 13.8 % (20.0-51.0); MEAN CELL VOLUME 92 fl (80.0-100.0); MEAN CORPUSCULAR HGB CONC 32 g/dl (33.0-37.0); MONO # 0.5 (0.1-0.6); PLATELET COUNT 132 K/mm3 (130-400); RED BLOOD COUNT 2.91 M/mm3 (4.20-5.60); REDCELL DISTRIBUTION WIDTH-CV 16.7 % (11.5-14.5)
[2020-08-24 12:31] LABS: HEMATOCRIT 26.9 % (42.0-52.0); HEMOGLOBIN 8.7 g/dl (13.5-18.0); MEAN CORPUSCULAR HEMOGLOBIN 30 pg (27.0-31.0)
[2020-08-24 12:32] LABS: ALBUMIN 2.8 gm/dL (3.5-5.0); CALCIUM 8.2 mg/dL (8.4-10.2); CREATININE, serum 0.99 (0.66-1.25); POTASSIUM 3.9 mmol/L (3.4-5.0); TOTAL PROTEIN 5.1 gm/dL (6.4-8.2)
== END ==
LOC: ZCOL.LAB 11:55
PROVIDERS: Internal Medicine
DX: I67.9 Cerebrovascular disease, unspecified (principal); D46.9 Myelodysplastic syndrome, unspecified

== ENCOUNTER → 2020-08-31 | Outpatient (CLI) | payer MEDICARE, OTHER ==
[2020-08-31 12:24] LABS: MEAN CELL VOLUME 90 fl (80.0-100.0); MEAN CORPUSCULAR HGB CONC 33 g/dl (33.0-37.0); MEAN PLATELET VOLUME 11.1 fl (7.4-10.4); PLATELET COUNT 143 K/mm3 (130-400); RED BLOOD COUNT 2.41 M/mm3 (4.20-5.60)
[2020-08-31 12:37] LABS: HEMATOCRIT 21.7 % (42.0-52.0); HEMOGLOBIN 7.2 g/dl (13.5-18.0); MEAN CORPUSCULAR HEMOGLOBIN 30 pg (27.0-31.0)
[2020-08-31 13:21] LABS: BAND 20 % (0-10); EOSINOPHIL 13 % (0-4); LYMPHOCYTE 12 % (20.0-51.0); METAMYELOCYTE 5 % (0-0); NEUTROPHILS 43 % (42.0-75.2)
[2020-08-31 13:25] LABS: TEAR DROP CELLS 1+
== END ==
LOC: ZLAB.STJ 11:51
PROVIDERS: Internal Medicine
DX: D46.9 Myelodysplastic syndrome, unspecified (principal)

== ENCOUNTER 2020-09-01 10:16 | Inpatient (IN) | payer MEDICARE, OTHER ==
[~2020-09-01] VITALS: Ht 165.1 cm; Wt 80.5 kg
[2020-09-01 10:41] LABS: MEAN CELL VOLUME 89 fl (80.0-100.0); MEAN CORPUSCULAR HGB CONC 33 g/dl (33.0-37.0); MEAN PLATELET VOLUME 10.7 fl (7.4-10.4); PLATELET COUNT 132 K/mm3 (130-400); RED BLOOD COUNT 2.43 M/mm3 (4.20-5.60); REDCELL DISTRIBUTION WIDTH-CV 17.2 % (11.5-14.5)
[2020-09-01 10:52] LABS: HEMATOCRIT 21.7 % (42.0-52.0); HEMOGLOBIN 7.2 g/dl (13.5-18.0); MEAN CORPUSCULAR HEMOGLOBIN 30 pg (27.0-31.0)
[2020-09-01 10:56] LABS: ALBUMIN 2.8 gm/dL (3.5-5.0); C-REACTIVE PROTEIN 4.8 mg/dL (0.0-0.9); CALCIUM 7.9 mg/dL (8.4-10.2); CREATININE, serum 1.21 (0.66-1.25); POTASSIUM 3.7 mmol/L (3.4-5.0); TOTAL PROTEIN 5.1 gm/dL (6.4-8.2)
[2020-09-01 11:04] LABS: TROPONIN-I 0.019 ng/mL (0.000-0.035)
[2020-09-01 11:18] LABS: ARTERIAL BLD GAS O2 SATURATION 96.8 % (92-100); ARTERIAL BLD GAS TCO2 CT 21.9; ARTERIAL BLOOD GAS HCO3 20.9 meq/L (22-26); ARTERIAL BLOOD GAS PCO2 32.3 mmHg (35-45); ARTERIAL BLOOD GAS PO2 92.3 mmHg (80-100); ARTERIAL BLOOD GAS pH 7.43 (7.35-7.45)
[2020-09-01 11:54] LABS: BAND 1 % (0-10); BASOPHIL 1 % (0-2); EOSINOPHIL 10 % (0-4); LYMPHOCYTE 15 % (20.0-51.0); MYELOCYTE 1 % (0-0); NEUTROPHILS 63 % (42.0-75.2); NUCLEATED RED BLOOD CELL 2 (0-6)
[2020-09-01 13:14] LABS: COLLECTION METHOD CLEAN CATCH
[2020-09-01 13:23] LABS: MUCOUS Present /lpf; PH 6 (5-8); SQUAMOUS EPITHELIAL 0-2 /hpf; URINE APPEARANCE Cloudy; URINE BACTERIA Occasional /hpf; URINE BILIRUBIN Negative (NEGATIVE); URINE BLOOD 1+ (NEGATIVE); URINE COLOR Yellow; URINE GLUCOSE Negative (NEGATIVE); URINE KETONE Negative (NEGATIVE); URINE LEUKOCYTE ESTERASE 3+ (NEGATIVE); URINE NITRATE Negative (NEGATIVE); URINE PROTEIN(semi-quant) Negative (NEGATIVE); URINE RBC 0-2 /hpf; URINE UROBILINOGEN Negative (NEGATIVE)
[2020-09-01 17:07] VITALS: BP 115/44; PULSE 76; TEMP 98.3
[2020-09-01 19:14] VITALS: BP 105/51; PULSE 81; TEMP 98.2
--- NOTE | 2020-09-01 23:45 | NUR ---
Pt new admit from ER today. Alert and orientated x2. Neuro intact. Son at bedside discussed poc with him. Orders reviewed and initated. IV fluids running. Assessment and vitals obtained. Denies pain. Needs met.
[2020-09-01 23:56] VITALS: BP 96/37; PULSE 86; TEMP 98.3
[2020-09-02] VITALS (11 sets, daily range): BP systolic 91–134; BP diastolic 38–53; PULSE 74–88; TEMP 97.9–99.2
--- NOTE | 2020-09-02 01:13 | NUR ---
BP OF 96/37 reported by supervisor carpenters RECHECK BY THIS NURSE OF 96/57. Monitoring. Denies pain, or soa. Neuro remain intact. Pt is resting in bed quietly. Not been asleep yet during rounds. Lights down.
--- NOTE | 2020-09-02 05:29 | NUR ---
Pt resting last half of night with eyes closed, resp even and unlabored. Neuro intact. Needs met.
[2020-09-02 07:11] LABS: MEAN CELL VOLUME 93 fl (80.0-100.0); MEAN CORPUSCULAR HGB CONC 32 g/dl (33.0-37.0); MEAN PLATELET VOLUME 11.2 fl (7.4-10.4); PLATELET COUNT 108 K/mm3 (130-400); RED BLOOD COUNT 2.04 M/mm3 (4.20-5.60); REDCELL DISTRIBUTION WIDTH-CV 17.6 % (11.5-14.5)
[2020-09-02 07:25] LABS: ALBUMIN 2.5 gm/dL (3.5-5.0); BILIRUBIN,TOTAL 0.8 mg/dL (0.0-1.0); CALCIUM 7.6 mg/dL (8.4-10.2); CREATININE, serum 1.31 (0.66-1.25); POTASSIUM 3.9 mmol/L (3.4-5.0); TOTAL PROTEIN 4.7 gm/dL (6.4-8.2)
[2020-09-02 07:39] LABS: HEMOGLOBIN 6.1 g/dl (13.5-18.0); MEAN CORPUSCULAR HEMOGLOBIN 30 pg (27.0-31.0)
--- NOTE | 2020-09-02 08:48 | NUR ---
Assessment complete. Patient asleep, awoke for aseesment. He is alert and know his name and that he is in the hospital but is otherwise disoriented. Patient denies pain or discomfort at this time. PICC site is CD&I, no redness, swelling or inflammation but right arm is significantly edematous compared to the left arm, more swelling in the right that the left. No pain with palpation. PICC flushed and korina very well. IVF continue to run at this time with no issues. PAtient went back to sleep after assessment. Fall precautions are in place. Will continue to monitor. Call light is in reach.
[2020-09-02 10:43] LABS: ARTERIAL BLD GAS O2 SATURATION 88.2 % (92-100); ARTERIAL BLD GAS TCO2 CT 20.1; ARTERIAL BLOOD GAS BASE EXCESS -4.6 (-2-2); ARTERIAL BLOOD GAS HCO3 19.2 meq/L (22-26); ARTERIAL BLOOD GAS PCO2 29.1 mmHg (35-45); ARTERIAL BLOOD GAS PO2 53.8 mmHg (80-100); ARTERIAL BLOOD GAS pH 7.44 (7.35-7.45)
--- NOTE | 2020-09-02 11:25 | NUR ---
First visit from the decal cutter. No needs right now.
--- NOTE | 2020-09-02 16:06 | NUR ---
1 UNIT TRANSFUSION COMPLETED AT THIS TIME. PATIENT TOLERATED WELL. VITALS DOCUMENTED PER PROTOCOL, NO ISSUES. PICC FLUSHED WITH 20 ML AND HOOKED BACK UP TO FLUIDS. CONTINUING TO MONITOR. PATIENT REMAINS DROWSY AND DIFFICULT TO COMMUNICATE WITH BUT IS STILL ABLE TO FOLLOW COMMANDS. AFTER SPEAKING WITH [facility] THEY STATED DROWSINESS IS NOT UNCOMMON. FALL PRECAUTIONS IN PLACE.
--- NOTE | 2020-09-02 16:39 | NUR ---
Patient has slept all day and has remained minimally responsive as well. He is able to follow commands when verbally stimulated. No complaints/signs or symtpoms of pain were expressed through out the day. Blood transfused, waiting 1 hour for lab re-draw post transfusion to assess for need for another unit, per Apolonia GUERRERO. Uneventful shift for pt. Patient was incontinent, incontinent cares provided. Will continue to monitor. Call light is in reach.
[2020-09-02 17:58] LABS: HEMATOCRIT 22.1 % (42.0-52.0); HEMOGLOBIN 7.2 g/dl (13.5-18.0)
--- NOTE | 2020-09-02 22:50 | NUR ---
1954- Assessment and vitals obtained. Pt denies soa, chest pain or dizzy. Neuro intact. Pt verbally hard to understand, no change from yesturday.PICC NS running at 60ml/HR. Hemo stable at 7.2 upon recheck after 1 unit today. NPO at this time.
[2020-09-03 04:14] VITALS: BP 114/48; PULSE 75; TEMP 98.3
--- NOTE | 2020-09-03 04:59 | NUR ---
pt slept through out night, repostioned often. Neuro intact. NPO until speech eval. Oral care. Needs met.
[2020-09-03 07:13] LABS: MEAN CELL VOLUME 93 fl (80.0-100.0); MEAN CORPUSCULAR HGB CONC 32 g/dl (33.0-37.0); MEAN PLATELET VOLUME 10.8 fl (7.4-10.4); PLATELET COUNT 80 K/mm3 (130-400); RED BLOOD COUNT 2.46 M/mm3 (4.20-5.60); REDCELL DISTRIBUTION WIDTH-CV 16.7 % (11.5-14.5)
[2020-09-03 07:15] LABS: HEMATOCRIT 22.8 % (42.0-52.0); HEMOGLOBIN 7.3 g/dl (13.5-18.0); MEAN CORPUSCULAR HEMOGLOBIN 30 pg (27.0-31.0)
[2020-09-03 07:20] LABS: CALCIUM 7.9 mg/dL (8.4-10.2); CREATININE, serum 1.16 (0.66-1.25); POTASSIUM 3.8 mmol/L (3.4-5.0)
[2020-09-03 07:58] LABS: ANISOCYTOSIS 1+; BAND 5 % (0-10); BASOPHIL 1 % (0-2); EOSINOPHIL 24 % (0-4); HYPOCHROMIA 2+; LYMPHOCYTE 7 % (20.0-51.0); MYELOCYTE 2 % (0-0); NEUTROPHILS 60 % (42.0-75.2); NUCLEATED RED BLOOD CELL 1 (0-6); PLATELET ESTIMATE DECREASED (NORMAL); POIKILOCYTOSIS 1+
[2020-09-03 07:59] LABS: OVALOCYTES 1+
--- NOTE | 2020-09-03 08:08 | NUR ---
Assessment complete. Patient laying in bed, awoke easily to verbal stimulation and was able to communicate with me this morning. He knew he was in the hospital and could tell me his name and date of but was disoriented to other questions. He denied pain or discomfort. Right arm edema is obvious, provider is aware. Patient remains NPO at this time due to speech issues, awaiting another eval today. Will continue to monitor. Call light is in reach.
[2020-09-03 08:37] VITALS: BP 115/55; PULSE 76; TEMP 97.6
--- NOTE | 2020-09-03 08:40 | NUR ---
(late entry 09/02) Director Clinical Operations contacted the patient's DPOA-HC, Gavino Day #[phone] to complete intake. The patient lives at [facility] in LTC and the plan is to return there at discharge. The patient receives assistance with ADLs. The patient's PCP is Dr. Veloz. The patient has advanced directives in the EMR. ALPHONSO faxed updates to Chevy at [facility]. ALPHONSO collaborated the above information with the team.
[2020-09-03 12:14] LABS: ARTERIAL BLD GAS O2 SATURATION 89.7 % (92-100); ARTERIAL BLD GAS TCO2 CT 21.2; ARTERIAL BLOOD GAS BASE EXCESS -3.9 (-2-2); ARTERIAL BLOOD GAS HCO3 20.2 meq/L (22-26); ARTERIAL BLOOD GAS PCO2 32.5 mmHg (35-45); ARTERIAL BLOOD GAS PO2 56.6 mmHg (80-100); ARTERIAL BLOOD GAS pH 7.41 (7.35-7.45)
[2020-09-03 12:45] VITALS: BP 111/53; PULSE 78; TEMP 98.1
--- NOTE | 2020-09-03 14:13 | NUR ---
Primary nurse was assisted with [phone] patient care by [employer] student Ana Paula Ramon and [facility] instructor Sapna Dumas RN-.
--- NOTE | 2020-09-03 14:43 | NUR ---
External catheter applied to patient at this time to manage extreme incontinence. Both patient and family agreed to this. Full incontinent care provided at this time, fresh brief and chux. Patient is now comfortable, sitting up with family at the bedside. [facility] Call light si in reach. Bed alarm is set.
--- NOTE | 2020-09-03 15:13 | NUR ---
Special Events Coordinator faxed updates to Chevy at [facility].
--- NOTE | 2020-09-03 15:30 | NUR ---
Patient admitted with PICC. dressing dated 08/27/20. no chlorhexidine impregnated disk present. right arm swollen from elbow to hand. PICC dressing change done with insertion site cleansed with chloraprep x 1, chlorhexidine impregnated disk applied, skin prep, stat lock, and tegaderm applied. no concerns voiced. re-wapped with an hazel wrap very loosely.
[2020-09-03 16:10] VITALS: BP 107/47; PULSE 78; TEMP 97.9
--- NOTE | 2020-09-03 17:23 | NUR ---
Patient has had an uneventful shift. Although he napped on and off through most of the day he has been much more alert and talkative today. Step son ws in to visit for a short amount of time. Shayna with [facility] changed the dressing on pts PICC line. Edematous right upper extremity was henrique up to provider, no changes. Patient has been able to eat today with assist and has done well with pureed diet and nectar thick liquids. Patient had a large soft formed BM. Patient remains disoriented but has not been lethargic, just drowsy. Continuing to monitor. Fall precautions are in place. Call light is in reach.
[2020-09-03 19:13] VITALS: BP 112/59; PULSE 76; TEMP 97.5
--- NOTE | 2020-09-03 20:00 | NUR ---
Report received, assumed care for fashion director. Assessment complete. VS stable. A&O to self. States he is in the hospital but doesnt know where or why. Left lung fernandez with fine crackles. Right upper extremity with +3 edema. PICC flushes without difficulty/good blood return. External male cath in place with ivette colored urine present. Mepilex dressing to coccyx area-CDI. Plan of care discussed for this shift to include HS meds/calling for questions/concerns/turning and repositioning. Denies questions/concerns. Call light in reach/bed alarm on. Will monitor.
[2020-09-04] VITALS (10 sets, daily range): BP systolic 103–135; BP diastolic 42–87; PULSE 56–110; TEMP 97.6–98.1
--- NOTE | 2020-09-04 00:41 | NUR ---
Noted to have O2 sat at 91% on 5L/NC. Per dr order-increased to 6L/NC with O2 sat 93%
[2020-09-04 04:49] LABS: ARTERIAL BLD GAS O2 SATURATION 90.8 % (92-100); ARTERIAL BLD GAS TCO2 CT 20.3; ARTERIAL BLOOD GAS BASE EXCESS -4.1 (-2-2); ARTERIAL BLOOD GAS HCO3 19.5 meq/L (22-26); ARTERIAL BLOOD GAS PCO2 27.9 mmHg (35-45); ARTERIAL BLOOD GAS PO2 55.2 mmHg (80-100); ARTERIAL BLOOD GAS pH 7.46 (7.35-7.45)
--- NOTE | 2020-09-04 05:16 | NUR ---
O2 sat 91% on 6L/NC. Increased to 7L/NC. Nasal cannula adjusted in nares-HOB elevated to 30 degrees. Recheck of O2 Sat 94%
[2020-09-04 05:49] LABS: MEAN CELL VOLUME 92 fl (80.0-100.0); MEAN CORPUSCULAR HGB CONC 33 g/dl (33.0-37.0); MEAN PLATELET VOLUME 11.1 fl (7.4-10.4); PLATELET COUNT 83 K/mm3 (130-400); RED BLOOD COUNT 2.28 M/mm3 (4.20-5.60)
[2020-09-04 05:58] LABS: CALCIUM 7.9 mg/dL (8.4-10.2); CREATININE, serum 1.13 (0.66-1.25); POTASSIUM 3.5 mmol/L (3.4-5.0)
[2020-09-04 06:00] LABS: HEMATOCRIT 20.9 % (42.0-52.0); HEMOGLOBIN 6.9 g/dl (13.5-18.0); MEAN CORPUSCULAR HEMOGLOBIN 30 pg (27.0-31.0)
--- NOTE | 2020-09-04 06:24 | NUR ---
Dr. Priest notified of critical labs. New orders received to transfuse current unit of blood on hold in lab-irradiated.
--- NOTE | 2020-09-04 09:00 | NUR ---
Patient laying in bed pillow under right side of body. Alert and partially oriented. VSS O2 liable, RT and doctor aware. IV CDI. Denies pain and discomfort. External catheter in place, clear tea colored urine. No further needs expressed from the patient. Call light within reach
--- NOTE | 2020-09-04 09:50 | NUR ---
PLACED PTON AIRVO FIO2 76% 60 LPM SPO2 92%
--- NOTE | 2020-09-04 15:11 | NUR ---
Blood transfusion started. VSS. VS being monitored. Patient tolerating well. IV CDI. No further needs expressed from the patient. Nurse at the bedside. Call light within reach
--- NOTE | 2020-09-04 17:34 | NUR ---
Blood transfusion complete. Patient tolerated well. VSS. IV CDI. No further needs expressed from the patient. Call light within reach
--- NOTE | 2020-09-04 17:52 | NUR ---
Patient tolerated blood transfusion, states "he feels better" A&O, has been sleeping most of the shift. VSS 60L 76% FiO2 Airvo. IV CDI. Right arm elevated on pillow. Denies pain and discomfort. External catheter in place. Patient has pillow under left side. No further needs expressed from the patient. Call light within reach
--- NOTE | 2020-09-04 20:17 | NUR ---
Resting quietly, wearing AirVo- patient pulls it off at times, frequent checks required, turn q 2 hours, edema noted to bue- elevated on pillows, does not follow directions consistently, ryan in use, fall precautions in use.
[2020-09-05 00:10] VITALS: BP 139/57; PULSE 74; TEMP 98
[2020-09-05 04:24] VITALS: BP 116/81; PULSE 81; TEMP 98.4
[2020-09-05 06:41] LABS: MEAN CELL VOLUME 93 fl (80.0-100.0); MEAN CORPUSCULAR HGB CONC 32 g/dl (33.0-37.0); MEAN PLATELET VOLUME 11.4 fl (7.4-10.4); PLATELET COUNT 83 K/mm3 (130-400); RED BLOOD COUNT 2.65 M/mm3 (4.20-5.60); REDCELL DISTRIBUTION WIDTH-CV 16.5 % (11.5-14.5)
[2020-09-05 06:42] LABS: ALBUMIN 2.7 gm/dL (3.5-5.0); BILIRUBIN,TOTAL 0.7 mg/dL (0.0-1.0); CREATININE, serum 1.01 (0.66-1.25); POTASSIUM 4.1 mmol/L (3.4-5.0)
[2020-09-05 06:50] LABS: HEMATOCRIT 24.7 % (42.0-52.0); MEAN CORPUSCULAR HEMOGLOBIN 30 pg (27.0-31.0)
[2020-09-05 07:04] LABS: BAND 25 % (0-10); HYPOCHROMIA 1+; LYMPHOCYTE 9 % (20.0-51.0); METAMYELOCYTE 3 % (0-0); MYELOCYTE 1 % (0-0); NEUTROPHILS 60 % (42.0-75.2); POIKILOCYTOSIS 1+
[2020-09-05 07:05] LABS: ANISOCYTOSIS 1+; OVALOCYTES 1+; PLATELET ESTIMATE DECREASED (NORMAL)
[2020-09-05 08:55] VITALS: BP 143/63; PULSE 86
--- NOTE | 2020-09-05 10:48 | NUR ---
Assesment completd, alert/oriented, vital signs stable and afebrile, denies pain or discomfort, no resp.difficulty noted at rest, he is on Airvo 55L/78% and O2 sats were 92%, lungs sounds are CTA in upper lobes and diminished with some fine crackles noted in the bases, heart RRR, distal pulses are palpable, 2+ edema to BLE and some non-pitting edmea to RUE, has some skin breakdown to coccyx/ we changing position frequently and dressing is C/D/I, he has ate breakfast with some assistance, morning meds given, SCD's on, denies other needs at this time
--- NOTE | 2020-09-05 11:49 | NUR ---
PT recommended SNF for patient. SW contacted [facility] to request patient admission to [facility]. AV will assess this Wednesday 09/06 and return call to [phone]. Social work will continue to follow.
[2020-09-05 12:03] VITALS: BP 133/59; PULSE 76
[2020-09-05 16:37] VITALS: BP 136/61; PULSE 78; TEMP 97.6
--- NOTE | 2020-09-05 19:12 | NUR ---
Sitting up in bed, updated on plan of care, generalized weakness noted, continues on AirVo, edema to R arm decreased since last night, SCDs in place. Call ly w/i reach, frequently offloading pressure areas. Incontinence care.
[2020-09-05 19:17] VITALS: BP 128/59; PULSE 87; TEMP 97.8
--- NOTE | 2020-09-05 22:23 | NUR ---
Awake, alert, oriented x 4, patient pulls Air Vo off... teaching re: need, oxygen. Snack given 100% eaten, repositioned, encouraging movement from patient, directing patient to lift arms and legs- stiff but participates, incontinent of bladder, mepilex in use for pressure areas on buttock.
[2020-09-06] VITALS (9 sets, daily range): BP systolic 112–139; BP diastolic 51–75; PULSE 78–115; TEMP 97.6–98.7
--- NOTE | 2020-09-06 01:09 | NUR ---
recieved call from Tele monitor- patient developed new Afib rate 70-100, Call placed to Nanette GUERRERO - notified of new development, patient resting quietly, occassionally pulling off Air Vo- educated on importance of O2, redirected, repositioned, encouraging po fluid intake, NTL observed. Will continue to monitor. Patient denies chest pain .
--- NOTE | 2020-09-06 02:50 | NUR ---
Cardiazem given as ordered, campus monitor notified of medication, Vitals stable, call placed to Respiratory therapist RE: SPO2- 87-89%, RT increased O2 to 87%- SPO2 90% at this time, patient repositioned, offloaded pressure, HOB elevated, Patient teaching re: leaving O2 on, updated on Cardiazem push, Afib, verbalized understanding.
[2020-09-06 03:55] LABS: ARTERIAL BLD GAS O2 SATURATION 92.1 % (92-100); ARTERIAL BLD GAS TCO2 CT 22.1; ARTERIAL BLOOD GAS BASE EXCESS -2.6 (-2-2); ARTERIAL BLOOD GAS HCO3 21.1 meq/L (22-26); ARTERIAL BLOOD GAS PCO2 31.8 mmHg (35-45); ARTERIAL BLOOD GAS pH 7.44 (7.35-7.45)
[2020-09-06 06:42] LABS: MEAN CELL VOLUME 95 fl (80.0-100.0); MEAN CORPUSCULAR HGB CONC 32 g/dl (33.0-37.0); PLATELET COUNT 101 K/mm3 (130-400); RED BLOOD COUNT 2.56 M/mm3 (4.20-5.60); REDCELL DISTRIBUTION WIDTH-CV 16.8 % (11.5-14.5)
[2020-09-06 06:47] LABS: CALCIUM 7.9 mg/dL (8.4-10.2); CREATININE, serum 0.97 (0.66-1.25)
[2020-09-06 07:32] LABS: HEMATOCRIT 24.3 % (42.0-52.0); HEMOGLOBIN 7.8 g/dl (13.5-18.0); MEAN CORPUSCULAR HEMOGLOBIN 30 pg (27.0-31.0)
--- NOTE | 2020-09-06 07:36 | NUR ---
patient on airvo2, 90% FIO2, 55 LPM. PRESTON NEFF
[2020-09-06 08:15] LABS: BAND 13 % (0-10); LYMPHOCYTE 9 % (20.0-51.0); METAMYELOCYTE 1 % (0-0); NEUTROPHILS 77 % (42.0-75.2); NUCLEATED RED BLOOD CELL 2 (0-6); OVALOCYTES 1+; PLATELET ESTIMATE DECREASED (NORMAL); SCHISTOCYTES 1+
--- NOTE | 2020-09-06 10:38 | NUR ---
Assessment completed, alert/ partially oriented, cooperative and follows commands, denies pain when asked, vital signs stable and afebrile, he did go into A.fib during the night/ rate is controlled and Cardiology notified, lungs CTA/ diminished no crackles or coarse lung sounds noted, still requiring Airvo for o2 saturations, ST recommending we advance to [facility] soft diet today and continue nectar thick liquids, PT/OT working with him and nursing doing frequent position changes to avoid further skin breakdown, he has a stage II to his coccyx and a enma I to his left upper buttock/ covered with dressings, moring meds given, PROPERTY LOSS INSURANCE CLAIM ADJUSTER assisted with breakfast, will continue to monitor
--- NOTE | 2020-09-06 13:19 | NUR ---
Jacquard Loom Fixer faxed clinical updates to [facility].
--- NOTE | 2020-09-06 15:15 | NUR ---
Patient is going for CT chest at this time
--- NOTE | 2020-09-06 19:31 | NUR ---
Awake, alert, oriented to self and place, sitting up in bed, respirations even and unlabored, skin warm and dry, turn q [address], offloading pressure areas, SCDs in use, call ly w/i reach, Air Vo in use.
[2020-09-07 04:07] VITALS: BP 131/62; PULSE 76; TEMP 97.8
[2020-09-07 07:24] LABS: MEAN CELL VOLUME 95 fl (80.0-100.0); MEAN CORPUSCULAR HGB CONC 31 g/dl (33.0-37.0); MEAN PLATELET VOLUME 11.7 fl (7.4-10.4); PLATELET COUNT 116 K/mm3 (130-400); RED BLOOD COUNT 2.54 M/mm3 (4.20-5.60); REDCELL DISTRIBUTION WIDTH-CV 16.9 % (11.5-14.5)
[2020-09-07 07:26] LABS: HEMATOCRIT 24.2 % (42.0-52.0); HEMOGLOBIN 7.6 g/dl (13.5-18.0); MEAN CORPUSCULAR HEMOGLOBIN 30 pg (27.0-31.0)
[2020-09-07 07:29] LABS: CALCIUM 7.8 mg/dL (8.4-10.2); CREATININE, serum 1.03 (0.66-1.25); POTASSIUM 4.2 mmol/L (3.4-5.0)
[2020-09-07 08:17] VITALS: BP 117/76; PULSE 74; TEMP 97.9
[2020-09-07 08:26] LABS: BAND 14 % (0-10); LYMPHOCYTE 8 % (20.0-51.0); METAMYELOCYTE 1 % (0-0); NEUTROPHILS 74 % (42.0-75.2); NUCLEATED RED BLOOD CELL 3 (0-6)
[2020-09-07 08:27] LABS: PLATELET ESTIMATE DECREASED (NORMAL); SCHISTOCYTES 1+; TEAR DROP CELLS 1+
--- NOTE | 2020-09-07 10:34 | NUR ---
Assessment complete. Patient sitting up eating breakfast and working with speech at this time. He is alert and oriented x2 only at this time. He states he feels fine. no complaints of pain or discomfort were expressed at this time. Patient was doing very well independently eating his breakfast. PICC site is CD&I, right arm swelling seems to have imrpoved from the past shift I cared for him. Incontinent cares are being provided as needed. No other needs at this time. Call light is in reach.
[2020-09-07 11:30] LABS: INR 1.6 (0.8-3.0); PROTHROMBIN TIME 17.7 SECONDS (9.7-12.8)
[2020-09-07 11:52] VITALS: BP 130/62; PULSE 76; TEMP 98
[2020-09-07 16:58] VITALS: BP 133/66; PULSE 77; TEMP 97.6
--- NOTE | 2020-09-07 17:55 | NUR ---
Patient has had a very uneventful shift. Incontinent cares provided as needed. Patient continues to deny pain or discomfort. Patient has been repositioned multiple times through the day with pillows to alternate pressure. PICC site CD&I. Airvo had to be put back on the patient multiple times through the day but afer I loosened the straps patient stated it was more comfortable. No other needs at this time. Call light is in reach.
[2020-09-07 19:03] VITALS: BP 136/63; PULSE 77; TEMP 97.6
--- NOTE | 2020-09-07 22:02 | NUR ---
PT SETTING UP IN BED, DENES PAIN OR SOA. PILLS GIVEN W PUDDING NO ISSUE. PICC LINE FLUSHED, MILD EDEMA TO RT UPPER ARM BEING MONITORED. NEEDS MET. ASSESSMENT AND VITALS OBTAINED.
--- NOTE | 2020-09-08 09:56 | NUR ---
Initial visit; Patient thanked Customer Facilities Supervisor for looking in on him and offering God's blessings and prayer.
[2020-09-08 20:00] VITALS: BP 130/58; PULSE 89; TEMP 98.5
[2020-09-09 00:47] VITALS: BP 117/63; PULSE 89; TEMP 97.8
--- NOTE | 2020-09-09 03:51 | NUR ---
PT HAD XXXL SOFT BM, LINENS, CLEAN GOWN AND TELE PATCHES ALL NEEDED CHANGED. PT KEEPS TAKING OFF AIRVO REMINDED TO LEAVE ON SEVERAL TIMES TONIGHT.
--- NOTE | 2020-09-09 04:05 | NUR ---
MEPILEX DSG TO BOTTOM CHANGED AFTER BM.
[2020-09-09 04:25] VITALS: BP 135/86; PULSE 82; TEMP 97.8
--- NOTE | 2020-09-09 05:04 | NUR ---
PT HAD A UNEVENTFUL NIGHT. NEEDS REMINDERS TO KEEP AIRVO ON OFTEN. NEEDS MET.
[2020-09-09 08:12] VITALS: BP 121/65; PULSE 83; TEMP 97.2
[2020-09-09 08:38] LABS: CALCIUM 7.4 mg/dL (8.4-10.2); CREATININE, serum 0.95 (0.66-1.25); POTASSIUM 3.8 mmol/L (3.4-5.0)
[2020-09-09 08:45] LABS: MEAN CELL VOLUME 93 fl (80.0-100.0); MEAN CORPUSCULAR HGB CONC 33 g/dl (33.0-37.0); PLATELET COUNT 145 K/mm3 (130-400); RED BLOOD COUNT 2.83 M/mm3 (4.20-5.60); REDCELL DISTRIBUTION WIDTH-CV 16.5 % (11.5-14.5)
[2020-09-09 08:47] LABS: HEMATOCRIT 26.3 % (42.0-52.0); HEMOGLOBIN 8.6 g/dl (13.5-18.0); MEAN CORPUSCULAR HEMOGLOBIN 30 pg (27.0-31.0)
--- NOTE | 2020-09-09 09:58 | NUR ---
Follow-up visit; Patient appears to be doing well. Plant Safety Leader mentioned to Gavino that he is looking well and wished him God's blessings.
[2020-09-09 12:59] LABS: CALCIUM 7.9 mg/dL (8.4-10.2); CREATININE, serum 1.03 (0.66-1.25)
[2020-09-09 13:03] VITALS: BP 114/55; PULSE 70; TEMP 98.2
[2020-09-09 13:42] LABS: GLUCOSE,PLEURAL FLUID 148 mg/dL; TOTAL PROTEIN,PLEURAL FLUID < 2.0 gm/dL
--- NOTE | 2020-09-09 14:06 | NUR ---
Primary nurse was assisted with [phone] patient care by [employer] student Marycarmen Davis and [employer] instructor Sapna Dumas RN-BC.
[2020-09-09 14:08] LABS: PLEURAL FLUID RBC 30000 /mm3 (0-0); PLEURAL FLUID WBC 197 /mm3
[2020-09-09 14:12] LABS: PLEURAL FLUID APPEARANCE CLOUDY; PLEURAL FLUID COLOR RED
[2020-09-09 16:00] VITALS: BP 126/55; PULSE 66; TEMP 98
[2020-09-09 16:30] LABS: HEMATOCRIT 24.2 % (42.0-52.0); HEMOGLOBIN 7.8 g/dl (13.5-18.0); MEAN CELL VOLUME 93 fl (80.0-100.0); MEAN CORPUSCULAR HEMOGLOBIN 30 pg (27.0-31.0); MEAN CORPUSCULAR HGB CONC 32 g/dl (33.0-37.0); MEAN PLATELET VOLUME 11.6 fl (7.4-10.4); PLATELET COUNT 125 K/mm3 (130-400); REDCELL DISTRIBUTION WIDTH-CV 16.7 % (11.5-14.5)
[2020-09-09 16:31] LABS: PLATELET ESTIMATE DECREASED (NORMAL)
[2020-09-09 16:32] LABS: ANISOCYTOSIS 1+; BAND 4 % (0-10); EOSINOPHIL 1 % (0-4); HYPOCHROMIA 1+; LYMPHOCYTE 8 % (20.0-51.0); METAMYELOCYTE 2 % (0-0); MYELOCYTE 1 % (0-0); NEUTROPHILS 77 % (42.0-75.2); SCHISTOCYTES 1+
--- NOTE | 2020-09-09 16:32 | NUR ---
Carver Hand faxed clinical updates to [place] [facility].
--- NOTE | 2020-09-09 19:00 | NUR ---
Received report from Sohail. Seen patient awake in bed. He jsut finished eating his dinner. Will check back on patient again.
--- NOTE | 2020-09-09 20:20 | NUR ---
Cira of RT decreased patient's airvo to 40L, 50%.
[2020-09-09 20:58] VITALS: BP 133/59; PULSE 63; TEMP 97.5
--- NOTE | 2020-09-09 21:22 | NUR ---
Called patient's son, Gavino Day, to get consent for his procedure tomorrow. Witnessed by Geovanna casting house worker.
[2020-09-10] VITALS (16 sets, daily range): BP systolic 115–133; BP diastolic 37–92; PULSE 59–66; TEMP 97.3–98.1
--- NOTE | 2020-09-10 04:24 | NUR ---
Patient has incontinent urine and stool. Changed patient's diaper and gown. Repositioned patient in bed. He denies pain. Bed alarm on. Call light within reach.
[2020-09-10 06:22] LABS: CALCIUM 7.3 mg/dL (8.4-10.2); CREATININE, serum 0.93 (0.66-1.25); POTASSIUM 3.8 mmol/L (3.4-5.0)
[2020-09-10 07:12] LABS: HEMOGLOBIN 7.7 g/dl (13.5-18.0); MEAN CORPUSCULAR HEMOGLOBIN 30 pg (27.0-31.0); RED BLOOD COUNT 2.55 M/mm3 (4.20-5.60)
[2020-09-10 07:13] LABS: HEMATOCRIT 23.6 % (42.0-52.0); MEAN CELL VOLUME 93 fl (80.0-100.0); MEAN CORPUSCULAR HGB CONC 33 g/dl (33.0-37.0); MEAN PLATELET VOLUME 11.7 fl (7.4-10.4); PLATELET COUNT 154 K/mm3 (130-400); REDCELL DISTRIBUTION WIDTH-CV 16.4 % (11.5-14.5)
--- NOTE | 2020-09-10 10:55 | NUR ---
Patient is going down to have pacemaker placed. Telephone consent given by patients son. RT came to help with transfer of patient so he can be placed back on airvo for the procedure. Student nurse transferred wit patient. Consent on chart. No other changes at this time.
--- NOTE | 2020-09-10 11:24 | NUR ---
SEE MERGE DOCUMENTATION FOR MEDICATION ADMINISTRATION TIMES AND INTRA/POST PROCEDURE SEDATION ASSESSMENTS.
--- NOTE | 2020-09-10 13:00 | NUR ---
Patient is back from having pacemaker placed. Dressing to left chest is C/D/I. No drainage, no reddness to site. Gauze dressing in placed. Ice pack placed to incision. Patient denies pain. CMS intact to left arm. No other changes at this time. Call light within reach. Bed alarm on. Airvo back on at 40 liters.
--- NOTE | 2020-09-10 13:21 | NUR ---
Hospitalist staffed with this Property Valuer regarding discharge disposition. A LTACH referrals needs to be sent due to the patient's condition. Referral sent to [facility] with [facility].
--- NOTE | 2020-09-10 13:56 | NUR ---
Primary nurse was assisted with [phone] patient care by [employer] [facility] student Marycarmen Davis and [facility] [employer] [employer] instructor Sapna Dumas RN-BC.
--- NOTE | 2020-09-10 18:00 | NUR ---
Patient has been dong well this afternoon. He ate some supper with assistance. Denies pain. He keeps taking his airvo off, needs reminders to keep on. Dressing to left chest remains C/D/I. No other changes at this time. Call light within reach.
--- NOTE | 2020-09-10 21:35 | NUR ---
Sitting upright in bed, follows simple commands as able, limited movement, pacemaker precautions in place, L arm in sling, dressings c/d/i, denies pain, no shob noted, airvo in place.
--- NOTE | 2020-09-10 23:02 | NUR ---
resting quietly, continues to pull off Airvo despite patient teaching re: O2 therapy, redirected and reapplied, telemetry in use ST 100, Dressing to L chest #1 c/d/i, Dressing to Mid L chest wall #2 c/d/i, incontinent of urine, checked frequently, turned and repositioned q 2 hours, sitting up 30 degrees in bed, L arm in sling.
[2020-09-11 00:22] VITALS: BP 101/40; PULSE 63; TEMP 98.1
--- NOTE | 2020-09-11 00:55 | NUR ---
Call placed to Stephanie Haro INSTRUCTOR [employer] re: low blood pressure, reported 101/47- R arm with +2 edema, stage 2 x 2 on buttocks, excoriation to groin, NON: Nickerson cath placement, continue to monitor blood pressure. Patient cleaned and dry, repositioned, R arm floated, Ice pack placed to L chest, dressing to L chest x 2 c/d/i, elevated HOB, telemetry in place. bilateral heels floated.
[2020-09-11 03:34] VITALS: BP 99/60; PULSE 60; TEMP 97.9
[2020-09-11 06:46] LABS: MEAN CELL VOLUME 95 fl (80.0-100.0); MEAN CORPUSCULAR HGB CONC 32 g/dl (33.0-37.0); MEAN PLATELET VOLUME 12.1 fl (7.4-10.4); PLATELET COUNT 179 K/mm3 (130-400); REDCELL DISTRIBUTION WIDTH-CV 16.6 % (11.5-14.5)
[2020-09-11 07:02] LABS: CALCIUM 6.9 mg/dL (8.4-10.2); CREATININE, serum 1.09 (0.66-1.25); POTASSIUM 3.3 mmol/L (3.4-5.0)
[2020-09-11 07:13] LABS: HEMATOCRIT 22.7 % (42.0-52.0); HEMOGLOBIN 7.3 g/dl (13.5-18.0); MEAN CORPUSCULAR HEMOGLOBIN 30 pg (27.0-31.0)
[2020-09-11 07:50] LABS: ANISOCYTOSIS 1+; BAND 6 % (0-10); EOSINOPHIL 1 % (0-4); HYPOCHROMIA 2+; LYMPHOCYTE 11 % (20.0-51.0); NEUTROPHILS 76 % (42.0-75.2); PLATELET ESTIMATE NORMAL (NORMAL); SCHISTOCYTES 1+
[2020-09-11 08:09] VITALS: BP 101/44; PULSE 52; TEMP 97.9
--- NOTE | 2020-09-11 10:03 | NUR ---
Assessment completed, alert/ oriented to self, follows commands and answers some question approrpiately, denies pain when asked, no resp.difficulty noted at rest/ lungs diminished throughout but no wheezing/ crackles or coarse sounds heard, his Airvo settings are 40L/55%, heart RRR/ Paced on , S/p pacemaker placement on 09/10, left upper chest incision site dressing is C/D/I, device interrogation done this morning, patien thas healed over pressure ulcer to his coccyx/ dressing applied and frequen repositioning, potassium 3.3/ replacing per protocol, plans for transfer to [facility] upon acceptance,
[2020-09-11] MEDS ORDERED: CORDARONE200 MG/TAB PO (10:53)
[2020-09-11 11:14] VITALS: BP 108/52; PULSE 65; TEMP 98.2
[2020-09-11 11:24] VITALS: BP 108/52; PULSE 65; TEMP 98.2
--- NOTE | 2020-09-11 11:50 | NUR ---
ALPHONSO update Patient will transfer to [facility] at or around 1:00 PM. Notified nursing team. ALPHONSO faxed orders to Toby Garces at [phone], Gave nursing N2N # [phone]. Accepting is Dr. Sánchez room 2112. [facility] is setup for transportation with verbal consent obtained by son with nursing staff. ALPHONSO witnessed call. No additional concerns at this time.
--- NOTE | 2020-09-11 13:00 | NUR ---
Patient being transferred to [facility] in [place], I have called and given report to delilah nurse @ [phone]
--- NOTE | 2020-09-15 13:17 | NUR ---
Caps were changed on pt PICC line on 09/02/20 as the caps on this line were not from this hospital. Shayna EID was aware.
== END 2020-09-11 13:00 | DRG 981 ==
LOC: COL.ER 10:16 → MEDICAL 14:00
PROVIDERS: Family Medicine; Nurse Practitioner Primary Care; Physician Assistant; Student in an Organized Health Care Education/Training Program; ADMIT Hospitalist
PROC: 0W9B3ZZ Drainage of Left Pleural Cavity, Percutaneous Approach (ICD-10-PCS; principal; 2020-09-08)
PROC: 0JH606Z Insertion of Pacemaker, Dual Chamber into Chest Subcutaneous Tissue and Fascia, Open Approach (ICD-10-PCS; 2020-09-10)
PROC: 02H63JZ Insertion of Pacemaker Lead into Right Atrium, Percutaneous Approach (ICD-10-PCS; 2020-09-10)
PROC: 02HK3JZ Insertion of Pacemaker Lead into Right Ventricle, Percutaneous Approach (ICD-10-PCS; 2020-09-10)
PROC: 3E0132A Introduction of Anti-Infective Envelope into Subcutaneous Tissue, Percutaneous Approach (ICD-10-PCS; 2020-09-10)
DX: J18.9 Pneumonia, unspecified organism (principal); J96.01 Acute respiratory failure with hypoxia; G93.41 Metabolic encephalopathy; I50.31 Acute diastolic (congestive) heart failure; N39.0 Urinary tract infection, site not specified; M48.54XA Collapsed vertebra, not elsewhere classified, thoracic region, initial encounter for fracture; E87.0 Hyperosmolality and hypernatremia; D46.9 Myelodysplastic syndrome, unspecified; I95.1 Orthostatic hypotension; I73.9 Peripheral vascular disease, unspecified; I48.91 Unspecified atrial fibrillation; N18.9 Chronic kidney disease, unspecified; E03.9 Hypothyroidism, unspecified; J43.9 Emphysema, unspecified; R13.10 Dysphagia, unspecified; K82.8 Other specified diseases of gallbladder; E87.8 Other disorders of electrolyte and fluid balance, not elsewhere classified; D69.6 Thrombocytopenia, unspecified; L89.152 Pressure ulcer of sacral region, stage 2; R73.9 Hyperglycemia, unspecified; I25.2 Old myocardial infarction; Z86.73 Personal history of transient ischemic attack (TIA), and cerebral infarction without residual deficits; Z79.82 Long term (current) use of aspirin; Z87.891 Personal history of nicotine dependence; Z88.2 Allergy status to sulfonamides; Z20.822 Contact with and (suspected) exposure to COVID-19
CPT/HCPCS: 99222-AI; 99231-AI; 99232-AI; 99233-AI; 99239; A9284; C1785; C1894; C1898; J0456; J0690; J0696; J1644; J1815; J1940; J2920; J3010; J7030; J7050; J7512; P9040; Q9967